=== PATIENT | female | born 1970 | race Caucasian/White ===

== ENCOUNTER 2023-03-21 13:31 | Emergency (ER) | payer MEDICARE, SELFPAY ==
--- NOTE | ~2023-03-21 | CT_ITS ---
EXAMINATION: CT FACIAL BONES WITH CONTRAST CLINICAL INFORMATION: Right facial swelling, pain. Dental infection? COMPARISON: None available. TECHNIQUE: Multidetector CT imaging examination of the facial bone region is performed with intravenous administration of 85 mL Omnipaque 350. This CT examination was performed using dose optimization techniques as appropriate, variously including the following: *Automated exposure control *Adjustment of mA and/or kV according to patient size (this includes techniques or standardized protocols for targeted exams where dose is matched to indication/reason for exam; i.e. extremities or head) *Use of iterative reconstruction technique DLP: 198 mGy-cm FINDINGS: The globes and orbital gómez, including lamina papyracea, are intact. The orbital apex, optic canals, and retrobulbar fat planes are normal. The maxilla, mandible and temporomandibular joints are intact. The patient is edentulous. There are no lytic or sclerotic changes in either the mandible or maxilla to suggest osteomyelitis. The nasal bones, pterygoid plates and zygomatic arches are normal. Wlph-[id number] amount of mucus is present in the inferior right maxillary sinus. Small amount mucus is present within a right posterior ethmoid air cell. There are no air-fluid levels within the paranasal sinuses. The ostiomeatal units are patent. No evidence of fluid collection or inflammatory change within the uniform force captain, parotid or parapharyngeal spaces. The pharyngeal mucosa and oral cavity are unremarkable. Submandibular glands are normal. No pathologic sized lymph nodes within the visualized portion of the upper neck. The intracranial compartment is partially included in [id number]. The visualized portion the brain is normal. No extra-axial fluid collection. CT/CT facial bones w IV con IMPRESSION: No acute imaging abnormalities. No evidence of osteomyelitis, soft tissue infection or acute sinusitis.
--- NOTE | 2023-03-21 14:17 | ED.GENADULT ---
[facility] - General Adult General Chief complaint: General Medical Stated complaint: Jaw pain Time Seen by Provider: 03/21/23 14:34 Source: patient Mode of arrival: ambulatory History of Present Illness HPI narrative: 52-year-old female who presents with complaints of left lower jaw discomfort and a swelling noted at the under edge of her jaw denies any fever chills or difficulty swallowing or breathing. She went to her dentist today who stated that she has no teeth. Patient history is significant for metastatic breast CA. Related Data Previous Rx's Medication Instructions Recorded amoxicillin 875 mg-potassium 1 tab PO BID 7 days #14 tabs 03/21/23 clavulanate 125 mg tablet Allergies Allergy/AdvReac Type Severity Reaction Status Date / Time No Known Allergies Allergy Verified 03/21/23 15:09 Review of Systems Review of Systems: Pertinent positives and negatives as stated in [facility] Past Medical History Source: nursing notes reviewed Onset Date is defined in the Problem List Problems that require an onset date and time if occurred within 24 hrs of arrival to the ED Aortic Dissection and Rupture; Neurologic impairment; Cardiopulmonary Arrest; Endotracheal Intubation; Insertion or Replacement of Mechanical Circulatory Assist Device Social History Social History Smoked in Last 30 Days: No Use of substances other than those prescribed or required for medical reasons: No Advance Directives: No Advance Directives Information Provided: Yes Patient : No Physical Exam ED Vital Signs: Vital Signs - 24 hr 03/21/23 14:18 03/21/23 14:36 Temperature 99.6 F Pulse Rate 103 H 101 H Respiratory Rate 18 16 Blood Pressure 149/90 H 155/96 H Pulse Oximetry 98 95 Oxygen Delivery Method Room Air Room Air BMI result Body Mass Index 18.8 VITAL SIGNS: Reviewed. GENERAL: Well developed, well nourished, in no acute distress. HEAD: Normocephalic/atraumatic EYES: PERRLA, EOMI EARS: Ext canals without abnormality NOSE: Nares patent bilateral OROPHARYNX: no oral lesions noted, posterior pharynx clear, no teeth, areas of gum sweling, there is a small pin hole at right lower inner gum with palpable/tender node at right submandibular NECK: Supple, no adenopathy LUNGS: Normal breath sounds. No adventitious sounds or accessory muscle use. SpO2<95> CARDIOVASCULAR: Regular rate and rhythm without noted murmurs ABDOMEN: Soft, non-tender, non-distended with bowel sounds. MUSCULOSKELETAL: No tenderness, deformities, or effusions noted on gross inspection. EXTREMITIES: No cyanosis, clubbing or edema. SKIN: Inspection of the skin reveals no rashes NEUROLOGIC: Alert and oriented x 4. Strength and sensation to light touch were grossly intact x 4. Course Course Course Narrative: RME: 52 year-old F w/ PMHx stage IV metastasized breast CA on chemotherapy, presenting to the ED c/o worsening jaw pain/lump x2 weeks, sent in by dentist for CT +R lower jaw swelling & pain Labs, CT ordered Full HPI, ROS and PE to be performed by primary ED provider. Medications Administered Discontinued Medications Generic Name Dose Route Start Last Admin Trade Name Freq PRN Reason Stop Dose Admin Acetaminophen 975 mg 03/21/23 16:21 03/21/23 16:29 Acetaminophen 325 Mg Tablet PO 03/21/23 16:22 975 mg ONCE ONE Administration Amoxicillin/Clavulanate Potassium 875 mg 03/21/23 16:21 03/21/23 16:29 Amoxicillin/Potassium Clav 875 Mg Tablet PO 03/21/23 16:22 875 mg ONCE ONE Administration Ibuprofen 400 mg 03/21/23 16:21 03/21/23 16:29 Ibuprofen 400 Mg Tablet PO 03/21/23 16:22 400 mg ONCE ONE Administration Iohexol 85 ml 03/21/23 15:44 03/21/23 15:44 Iohexol 350 Mg/Ml 100 Ml Infus..Btl IV 03/21/23 15:45 85 ml ONCE ONE Administration Medical Decision Making Medical Decision Making [facility] Narrative: 52-year-old female with history and clinical presentation, DDX: Infection likely needing antibiotics will follow-up on labs and CT scan that were ordered. I reviewed all investigations there is no evidence of leukocytosis or left shift, there is no thrombocytopenia and patient has a normocytic anemia likely of chronic disease specifically related to current cancer. There is no history or clinical evidence of acute bleeding. Chemistry indices do not demonstrate an FILIBERTO and there is a mild drop in potassium which will be repleted with 60 mEq of potassium chloride and otherwise no evidence of liver enzyme derangements. C-reactive is noted to be elevated to 6.[address] scan face there is no evidence of an osteomyelitis and likely this again is relatable to patient's underlying cancer diagnosis. She received combination analgesics and initial antibiotics and is otherwise discharged home. Differential Diagnosis Differential Diagnoses: The differential diagnosis associated with the presentation includes Please see the discussion above Admission/Observation Consideration of admission/observation: Escalation of care including admission/observation considered Please see the discussion above Lab Data MDM Lab Attestation statement: I reviewed the patient's lab results. Please see the discussion above 03/21/23 14:56 03/21/23 14:56 Labs: Lab Results 03/21/23 Range/Units 14:56 WBC 4.6 L (4.8-10.8) X10*3/uL RBC 3.28 L (4.20-5.50) X10*6/uL Hgb 8.9 L (12.0-16.0) g/dl Hct 27.6 L (37.0-47.0) % MCV 84.1 (80.0-98.0) fL MCH 27.1 (27.0-33.0) pg MCHC 32.2 (31.0-35.0) g/dl RDW 14.6 (11.0-16.0) % Plt Count 163 (160-400) X10*3/uL MPV 8.6 L (9.4-12.3) fL Immature Gran % (Auto) 0.4 (0.0-0.4) % Neut % (Auto) 60.1 (45-73) % Lymph % (Auto) 24.4 (20-40) % [place] % (Auto) 11.6 H (2-11) % Eos % (Auto) 2.6 (0-4) % Baso % (Auto) 0.9 (0-2) % Lymph # (Auto) 1.1 L (1.2-4.9) X10*3/uL [place] # (Auto) 0.5 (0.1-1.2) X10*3/uL Eos # (Auto) 0.1 (0.0-0.4) X10*3/uL Baso # (Auto) 0.0 (0.0-0.2) X10*3/uL Abs Immat Gran (auto) 0.02 (0.00-0.03) X10*3/uL Absolute Neuts (auto) 2.8 (2.0-8.3) x10*3/uL Absolute Nucleated RBC 0.000 (0.0-0.012) X10*3/uL Nucleated RBC % (auto) 0.0 (0.0-0.2) /100WBC ESR 111 H (0-20) MM/HR Sodium 140 (135-145) mmol/L Potassium 3.1 L (3.3-5.1) mmol/L Chloride 99 (96-108) mmol/L Carbon Dioxide 31 H (22-29) mmol/L Anion Gap 13 (12-20) BUN 7 L (9-16) mg/dL Creatinine 0.82 (0.5-1.4) mg/dL Estim Creat Clear Calc 59.7 Estimated GFR > 60 Random Glucose 108 (60-115) mg/dL Calcium 9.4 (8.4-10.2) mg/dL Total Bilirubin 0.2 (0.0-1.0) mg/dL Direct Bilirubin < 0.2 (0.0-0.5) mg/dL AST 17 (5-31) U/L ALT 6 (0-31) U/L Alkaline Phosphatase 72 (39-117) U/L C-Reactive Protein 6.17 H (< or = 0.50) mg/dL Total Protein 7.4 (6.5-8.0) g/dL Albumin 3.6 (3.5-5.0) g/dL Radiology Impression Discussion of test interpretation with radiology: I have reviewed the radiologist's reading. Radiologist Impression: Please see the discussion above Chronic Conditions Patient?s care impacted by: Other Stage IV metastatic breast cancer Critical Care Time Critical Care Time Critical Care Time: Yes Total Critical Care Time: 45 Attestation: I personally attest to this time spent taking care of the patient. Discharge Plan Discharge Clinical Impression: Dental infection Patient Disposition: Home, Self-Care Instructions: Dental Abscess (ED) Additional Instructions: 1. Complete the entire course of antibiotics as prescribed. 2. Please follow-up with primary care doctor at your earliest convenience. 3. Please follow-up with a dentist after being on antibiotics for 2-3 days. Return to the ER if no improvement in symptoms. Prescriptions: New amoxicillin-pot clavulanate 875-125 mg tablet 1 tab PO BID 7 Days Qty: 14 0RF
[2023-03-21 14:18] VITALS: BP 149/90; PULSE 103; RESP 18; TEMP 37.6; O2SAT 98; BMI 18.8
[2023-03-21 14:36] VITALS: BP 155/96; PULSE 101; RESP 16; O2SAT 95
--- NOTE | 2023-03-21 14:40 | PC.NURSE ---
a&ox4. vss and up to date. pt presents to the ED d/t right sided jaw/facial/neck pain. pt states she was at her dentist when her dentist advised her to come here based on complaint. pt states she has had the pain for months but has gotten worse in the past 2 weeks. pt denies any recent fever/chills. slight swelling noted. tender to the touch. airway patent. no sob/wob noted. respirations even and unlabored. pt able to speak in full/clear sentences w/o difficulty. family bedside. call rain placed within reach.
--- NOTE | 2023-03-21 15:00 | PC.NURSE ---
pt states that she has a power port that is used for access on the right side of her chest. this RN accessed right side of chest port w/ sterile technique. port patent. no difficulties noted. access secured in place at this time. labs obtained/sent to lab. pt resting comfortably awaiting to go to CT at this time. call rain placed within reach.
[2023-03-21 15:02] LABS: MANUAL DIFF FLAG NO
[2023-03-21 15:08] LABS: Basophils Percent Auto 0.9 % (0-2); Eosinophils Absolute Auto 0.1 X10*3/uL (0.0-0.4); Eosinophils Percent Auto 2.6 % (0-4); Hematocrit 27.6 % (37.0-47.0); Hemoglobin 8.9 g/dl (12.0-16.0); Imm Gran Abs Auto 0.02 X10*3/uL (0.00-0.03); Imm Gran Pct Auto 0.4 % (0.0-0.4); Lymphocytes Absolute Auto 1.1 X10*3/uL (1.2-4.9); Lymphocytes Percent Auto 24.4 % (20-40); Mean Corpuscular HGB Conc 32.2 g/dl (31.0-35.0); Mean Corpuscular Hemoglobin 27.1 pg (27.0-33.0); Mean Corpuscular Volume 84.1 fL (80.0-98.0); Mean Platelet Volume 8.6 fL (9.4-12.3); Monocytes Absolute Auto 0.5 X10*3/uL (0.1-1.2); Monocytes Percent Auto 11.6 % (2-11); Neutrophils Absolute Auto 2.8 x10*3/uL (2.0-8.3); Neutrophils Percent Auto 60.1 % (45-73); Platelet Count 163 X10*3/uL (160-400); Red Blood Count 3.28 X10*6/uL (4.20-5.50); Red Cell Distribution Width 14.6 % (11.0-16.0); White Blood Count 4.6 X10*3/uL (4.8-10.8)
[2023-03-21 15:16] LABS: Alanine Aminotransferase 6 U/L (0-31); Albumin Level 3.6 g/dL (3.5-5.0); Alkaline Phosphatase 72 U/L (39-117); Anion Gap 13 (12-20); Aspartate Amino Transferase 17 U/L (5-31); Bilirubin Direct < 0.2 mg/dL (0.0-0.5); Bilirubin Total 0.2 mg/dL (0.0-1.0); Blood Urea Nitrogen 7 mg/dL (9-16); C Reactive Protein 6.17 mg/dL (< or = 0.50); Calcium 9.4 mg/dL (8.4-10.2); Carbon Dioxide 31 mmol/L (22-29); Chloride 99 mmol/L (96-108); Creatinine Clr Calc Pharmacy 59.7; Estimated Glomerular Filt Rate > 60; Glucose Random 108 mg/dL (60-115); Potassium 3.1 mmol/L (3.3-5.1); Sodium 140 mmol/L (135-145); Total Protein 7.4 g/dL (6.5-8.0)
--- NOTE | 2023-03-21 15:38 | PC.NURSE ---
pt to CT at this time.
[2023-03-21] MEDS: iohexoL 350 MG/ML 100 ML INFUS..BTL 85 ML IV (15:44)
[2023-03-21 15:49] LABS: Erythrocyte Sedimentation Rate 111 MM/HR (0-20)
[2023-03-21] MEDS: Acetaminophen 325 MG TABLET 975 MG PO (16:29)
[2023-03-21] MEDS: Amoxicillin/Potassium Clav 875 MG TABLET PO (16:29)
[2023-03-21] MEDS: Ibuprofen 400 MG TABLET PO (16:29)
--- NOTE | 2023-03-21 16:32 | PC.NURSE ---
pt c/o right jaw pain. medication administered per provider order. will reassess.
[2023-03-21] MEDS: Potassium Chloride ER 20 MEQ TAB.ER.PRT 60 MEQ PO (17:44)
--- NOTE | 2023-03-21 17:52 | PC.NURSE ---
port removed from right size of chest. access flushed w/ heparin and saline flushes x 2. pt medicated per provider order. pt provided w/ d/c paperwork. pt leaving facility w/ family member at this time.
== END 2023-03-21 17:53 | disposition home or self-care (01) ==
PROVIDERS: Physician Assistant; Emergency Provider Student in an Organized Health Care Education/Training Program
DX: K04.7 Periapical abscess without sinus (principal)
CPT/HCPCS: 36415; 70487; 80048; 80076; 85025; 85652; 86140; 99284; J1642; Q9967

== ENCOUNTER 2023-06-05 10:14 | Emergency (ER) | payer MEDICARE, SELFPAY ==
[2023-06-05 10:30] VITALS: BP 153/87; PULSE 100; RESP 18; TEMP 37.7; O2SAT 95; BMI 18.7
--- NOTE | 2023-06-05 12:23 | ED_ITS ---
HPI - Dental/Oral General Chief complaint: Dental/Oral Stated complaint: Dental infection? has stage 4 breast cancer Time Seen by Provider: 06/05/23 11:55 Source: patient and RN notes reviewed Mode of arrival: ambulatory Limitations: no limitations History of Present Illness HPI Narrative: This is a 52-year-old female, with a history of breast cancer with bone metastasis, presenting to the emergency department with complaints of right lower dental pain x1 week. Patient reports that she has a history of dental abscesses and symptoms feel similar. Patient reports that she called her dentist who did not return her phone call, she also called her oncologist who also is not returning any of her phone calls. She denies any fevers, chills, drainage from the area, chest pain, shortness breast, abdominal pain, difficulty opening and closing jaw. No other complaints or concerns at this time. Teeth map: 2 1. Duration: constant Severity: moderate Relieving factors: nothing Exacerbating factors: nothing Context: history of dental caries and poor dental care Associated symptoms: gum swelling Treatment prior to arrival: none Related Data Previous Rx's Medication Instructions Recorded amoxicillin 875 mg-potassium 1 tab PO BID 7 days #14 tabs 03/21/23 clavulanate 125 mg tablet amoxicillin 875 mg-potassium 1 tab PO BID 7 days #13 tabs 06/05/23 clavulanate 125 mg tablet Allergies Allergy/AdvReac Type Severity Reaction Status Date / Time capsaicin [From Capsimide] Allergy Anaphylaxis Verified 06/05/23 10:36 Review of Systems 2 Review of Systems: Yes all other systems are reviewed and are negative Constitutional: Constitutional: Reports as per [facility] Social History Social History Advance Directives: No Physical Exam 2 Vital Signs: Vital Signs: Last Vital Signs Temp 99 F 06/05/23 12:40 Pulse 99 06/05/23 12:40 Resp 18 06/05/23 12:40 BP 153/87 H 06/05/23 12:40 Pulse Ox 99 06/05/23 12:40 O2 Del Method Room Air 06/05/23 12:40 BMI result Body Mass Index 18.7 Const: General: cooperative, comfortable and no acute distress O rientation/consciousness: patient oriented x3 Limitations: no limitations HEENT: Other: Poor dentition throughout, she has no teeth present. Tenderness to palpation to the lower gumline without any induration or fluctuance. No mandibular tenderness on examination. No pain with opening and closing jaw. No trismus, drooling, or dysphonia. No submandibular swelling Head: Yes normal to inspection, Yes normocephalic and Yes atraumatic E ars: hearing grossly normal bilaterally General nose exam: Normal external nose present Face and sinus: Yes normal facial exam Mouth: Normal oral and palatal mucosa present, oropharynx normal and moist mucous membranes Throat: Yes posterior oropharynx normal Eyes: General: appearance normal, both eyes and all related structures E yelids: Yes eyelids normal Conjunctivae: conjunctivae normal Sclerae: s clerae normal Pupils: Equal, round and reactive pupils present EOM: EOMs intact bilaterally Neck: Neck: Yes normal visual inspection, Yes full ROM and Yes no lymphadenopathy Lymphatic: no lymphadenopathy noted Chest: Chest palpation & inspection: normal inspection of the chest Resp: Effort & Inspection: normal respiratory effort and able to speak in complete sentences Auscultation: clear to auscultation bilaterally, no crackles, no rales, no rhonchi and no wheezes Cardio: Rate: regular rate Rhythm: regular rhythm Heart sounds: S1 normal heart sound present and S2 normal heart sound present GI: Inspection: Yes normal to inspection Skin: General skin exam: no rashes or lesions noted Trauma: no lacerations or abrasions Wounds: no wounds Neuro: General: patient oriented x3 and moves all extremities Cranial nerves: Yes Equal, round and reactive pupils present Extrem: General: Yes normal to inspection Right upper extremity: normal to inspection Left upper extremity: normal to inspection Right lower extremity: normal to inspection Left lower extremity: normal to inspection Medications Administered Discontinued Medications Generic Name Dose Route Start Last Admin Trade Name Freq PRN Reason Stop Dose Admin Amoxicillin/Clavulanate Potassium 875 mg 06/05/23 12:25 06/05/23 12:37 Amoxicillin/Potassium Clav 875 Mg Tablet PO 06/05/23 12:26 875 mg ONCE ONE Administration Medical Decision Making Medical Decision Making [facility] Narrative: This is a 52-year-old female, with a history of breast cancer with metastasis, who presents to the emergency department with complaints of right lower dental pain x1 week. On arrival, patient mildly hypertensive at 153/87, she is afebrile, speaking in full sentences. On physical exam, patient has tenderness palpation along the right lower gumline without any tenderness palpation along her right mandible. Patient's symptoms likely due to a dental abscess. Will treat with Augmentin. Encouraged to follow-up with dentist as soon as possible. She understands and agrees with plan. Also advised that if any new or worsening symptoms occur to immediately return for further evaluation. She understands and agrees with plan. Patient stable for discharge. Differential Diagnosis Differential Diagnoses: The differential diagnosis associated with the presentation includes Dental abscess, dental decay, osteomyelitis, facial pain Admission/Observation Consideration of admission/observation: Escalation of care including admission/observation considered Escalation of care including admission/observation considered however given workup today not warranted at this time. Tests considered The following testing was considered but not selected: Considered facial CT scan, however patient had CT scan performed in March which was unremarkable. She has tenderness palpation along her gumline, consistent with dental issue. Will treat conservatively however given turn precautions if patient has new or worsening symptoms. Chronic Conditions Patient?s care impacted by: Cancer Discharge Plan Discharge Clinical Impression: Dental abscess Patient Disposition: Home, Self-Care Instructions: Dental Abscess (ED) Additional Instructions: You were seen in the emergency department due to dental pain. You have infection in your gumline, which requires antibiotics. Please take full course even if your feeling better. Alternate between ibuprofen and Tylenol as needed for pain and symptoms. You need to follow-up with dentist, call today to make an appointment. If any new or worsening symptoms occur including but not limited to worsening pain, swelling, fevers, chills, difficulty opening and closing your jaw, chest pain, shortness breast, please return for re-evaluation. Prescriptions: New amoxicillin-pot clavulanate 875-125 mg tablet 1 tab PO BID 7 Days Qty: 13 0RF No Action amoxicillin-pot clavulanate 875-125 mg tablet 1 tab PO BID 7 Days Qty: 14 0RF Interventions: ED Discharge Assessment Last Done: 06/05/23 12:40 Discharge Date/Time: 06/05/23 12:45
[2023-06-05] MEDS: Amoxicillin/Potassium Clav 875 MG TABLET PO (12:37)
[2023-06-05 12:40] VITALS: BP 153/87; PULSE 99; RESP 18; TEMP 37.2; O2SAT 99
== END 2023-06-05 12:45 | disposition home or self-care (01) ==
PROVIDERS: Emergency Provider Emergency Medicine
DX: K04.7 Periapical abscess without sinus (principal)
CPT/HCPCS: 99282; 99283

== ENCOUNTER 2023-06-21 11:16 | Outpatient (AMB) | payer MEDICARE, SELFPAY ==
--- NOTE | 2023-06-21 11:35 | MHC.OFFVIS ---
Intake Vital Signs 06/21/23 12:01 Height 5 ft 2 in Weight 99 lb 4 oz BMI 18.2 BP 130/80 Blood Pressure Location Lt brachial Position Sitting Respiration 12 Pulse 90 Pulse Source Pulse Oximeter Pulse Oximetry (%) 96 Oxygen Delivery Method Room Air Intake Visit Reasons: ITDD REFILL DISCUSSION Intake Note: Patient comes in for initial visit was referred by Cancer center. Reports pain 06/19. Allergies capsaicin [From Capsimide] Allergy (Verified 06/21/23 11:59) Anaphylaxis HPI HPI Comments History of Present Illness Details Tracy is very pleasant 60 years old female who is presenting in my office accompanied by her daughter to request assistance in refills of her intrathecal pump. She was diagnosed in cancer 8 years ago it was breast cancer she had simple amputation, no axillary exploration was done and she had chemotherapy. She had oral chemotherapy no radiation. For pump therapy was established in 2023 years ago. She reports most of the pain in bilateral knees she receives intra-articular steroid injections in her knees. 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 To treat her pain she was offered intrathecal pain pump and currently she is on continuous dose of 1 milligram/mL as well as 2 on demand doses with PTM twice a day. Total dose of the medication is 3 mg a day. She uses 1 mL of the medication concentration of which is 10 milligrams/mL every 3 days. She has very short interval until her next pump refill. She is also taking oral medication 5 mg oxycodone 3 times a day. Past medical history significant for depression and past surgical history limited to described above. I explained to the patient that I will be glad to start her pump refills here in [facility] comprehensive pain management. Review of Systems Const All systems reviewed & are unremarkable except as noted in HPI and below ENT Reports Normal hearing present Neuro Reports Normal hearing present, Denies Abnormal speech present and Denies Sensory deficit (Neuro) Physical Exam Vital Signs: Last Vital Signs Pulse 90 06/21/23 12:01 Resp 12 06/21/23 12:01 BP 130/80 06/21/23 12:01 Pulse Ox 96 06/21/23 12:01 Oxygen Delivery Method Room Air 06/21/23 12:01 BMI result Body Mass Index 18.2 Const General: cooperative, comfortable, no acute distress and ill appearing chronically Nutritional Appearance: malnourished Orientation/consciousness: patient oriented x3 Limitations: no limitations Eyes General: appearance normal, both eyes and all related structures Pupils: Equal, round and reactive pupils present EOM: EOMs intact bilaterally Neck Neck: Yes full ROM Chest Other: The left breast is absent on inspection and there is a well-healed scar in the projection of the amputation surgery of the left breast. Chest palpation & inspection: normal inspection of the chest Resp Effort & Inspection: normal respiratory effort, able to speak in complete sentences, normal respiratory pattern, no audible wheezes and no cough Cardio Jugular venous distension: no JVD GI Inspection: Yes normal to inspection Neuro General: patient oriented x3 and gait normal Cranial nerves: Yes CN's II-XII intact bilaterally, Yes Equal, round and reactive pupils present, Yes Normal hearing present and Yes Ability to bilaterally elevate shoulders present Speech: No Abnormal speech present Gait exam (Neuro): Normal gait present Motor exam (neuro): 5/5 motor strength present throughout Sensory Exam: No Sensory deficit (Neuro) Extrem General: No pedal edema Psych Speech and movement: Normal speech and movement present Affect: normal affect Attitude: cooperative Thought process: Normal thought process present Thought content: Normal thought content present Insight: Good insight present (Psych) Judgement: Good judgement present (Psych) Assessment & Plan Assessment & Plan (1) Breast cancer: Code(s): C50.919 - Malignant neoplasm of unspecified site of unspecified female breast (2) Chronic pain syndrome: Code(s): G89.4 - Chronic pain syndrome (3) Osteoarthritis of knees, bilateral: Code(s): M17.0 - Bilateral primary osteoarthritis of knee Plan I will request to order 10 mg of morphine per 1 mL 20 mL solution from [facility] compounding pharmacy. I will request to deliver this medication as soon as possible. Next week I will refill medication for this patient. I explained to her the nature of our chronic opioid program. She receives opioid medications from the oncologist and she would like to remain so. She also is interested in intra-articular joint injections. Coding Level of Care Code New Pt Level 3 (43367) Diagnoses Breast cancer C50.919 Chronic pain syndrome G89.4 Osteoarthritis of knees, bilateral M17.0
[2023-06-21 12:01] VITALS: BP 130/80; PULSE 90; RESP 12; O2SAT 96; BMI 18.2
== END 2023-06-21 12:02 | disposition home or self-care (01) ==
PROVIDERS: Visit Provider Anesthesiology
DX: C50.919 Malignant neoplasm of unspecified site of unspecified female breast (principal); G89.4 Chronic pain syndrome; M17.0 Bilateral primary osteoarthritis of knee
CPT/HCPCS: 99203

== ENCOUNTER → 2023-06-21 11:16 | Outpatient (BNVA) | payer MEDICARE, SELFPAY | PROVIDERS: Visit Provider Anesthesiology | DX: M17.0 Bilateral primary osteoarthritis of knee (principal); C50.919 Malignant neoplasm of unspecified site of unspecified female breast; G89.4 Chronic pain syndrome | CPT/HCPCS: 99202 ==

== ENCOUNTER 2023-07-02 15:21 | Outpatient (AMB) | payer MEDICARE, SELFPAY ==
--- NOTE | 2023-07-02 15:37 | MHC.OFFVIS ---
Vital Signs 07/02/23 15:50 Height 5 ft 2 in Weight 100 lb 6 oz BMI 18.4 BP 149/100 H Blood Pressure Location Lt brachial Position Sitting Respiration 12 Pulse 86 Pulse Source Pulse Oximeter Pulse Oximetry (%) 96 Oxygen Delivery Method Room Air Intake Visit Reasons: ITDD refill Intake Note: Patient comes in for intrathecal medication refill. Reports pain 04/21. Allergies capsaicin [From Capsimide] Allergy (Verified 07/02/23 15:49) Anaphylaxis HPI Comments Details: Tracy is here for refill of her pump. The pump refill is as below. Prior: She recently relocated from [place] to [place]. She was diagnosed in cancer 8 years ago it was breast cancer she had simple amputation, no axillary exploration was done and she had chemotherapy. She had oral chemotherapy no radiation. She reports most of the pain in bilateral knees she receives intra-articular steroid injections in her knees. 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 To treat her pain she was offered intrathecal pain pump and currently she is on continuous dose of 1 milligram/mL as well as 2 on demand doses with PTM twice a day. Total dose of the medication is 3 mg a day. She uses 1 mL of the medication concentration of which is 10 milligrams/mL every 3 days. She has very short interval until her next pump refill. She is also taking oral medication 5 mg oxycodone 3 times a day. Review of Systems Const All systems reviewed & are unremarkable except as noted in HPI and below ENT Reports Normal hearing present Neuro Reports Normal hearing present, Denies Abnormal speech present and Denies Sensory deficit (Neuro) Physical Exam Vital Signs: Last Vital Signs Pulse 86 07/02/23 15:50 Resp 12 07/02/23 15:50 BP 149/100 H 07/02/23 15:50 Pulse Ox 96 07/02/23 15:50 Oxygen Delivery Method Room Air 07/02/23 15:50 BMI result Body Mass Index 18.4 Const General: cooperative, comfortable, no acute distress and ill appearing chronically Nutritional Appearance: malnourished Orientation/consciousness: patient oriented x3 Limitations: no limitations Eyes General: appearance normal, both eyes and all related structures Pupils: Equal, round and reactive pupils present EOM: EOMs intact bilaterally Neck Neck: Yes full ROM Chest Other: The left breast is absent on inspection and there is a well-healed scar in the projection of the amputation surgery of the left breast. Chest palpation & inspection: normal inspection of the chest Resp Effort & Inspection: normal respiratory effort, able to speak in complete sentences, normal respiratory pattern, no audible wheezes and no cough Cardio Jugular venous distension: no JVD GI Inspection: Yes normal to inspection Neuro General: patient oriented x3 and gait normal Cranial nerves: Yes CN's II-XII intact bilaterally, Yes Equal, round and reactive pupils present, Yes Normal hearing present and Yes Ability to bilaterally elevate shoulders present Speech: No Abnormal speech present Gait exam (Neuro): Normal gait present Motor exam (neuro): 5/5 motor strength present throughout Sensory Exam: No Sensory deficit (Neuro) Extrem General: No pedal edema Psych Speech and movement: Normal speech and movement present Affect: normal affect Attitude: cooperative Thought process: Normal thought process present Thought content: Normal thought content present Insight: Good insight present (Psych) Judgement: Good judgement present (Psych) Assessment & Plan Assessment & Plan (1) Breast cancer: Code(s): C50.919 - Malignant neoplasm of unspecified site of unspecified female breast Category: Medical (2) Chronic pain syndrome: Code(s): G89.4 - Chronic pain syndrome Category: Medical Plan: Intrathecal pump refill. ? THE PATIENT CAME TODAY IN office FOR THE CHANGE OF THE MEDICATION IN his PAIN PUMP. The name and date of were verified and informed consent was obtained for the procedure. ? ?The pump was interrogated and the residual amount of fluid was found to be 3.2 mL. HE WAS POSITIONED prone on the bed AND THE AREA OF THE INTRATHECAL PUMP WAS PREPPED WITH CHLORAPREP. The fenestrated drape was sterilely applied over the area of the pump. Sterile gloves were worn and of the aspiration system was assembled containing 2 in 22 gauge noncoring needle, the needle was connected to extension tubing which was connected to the 20 cc sterile syringe. The pain pump was palpated under the skin in the patient's right buttock area. The needle was inserted through the skin and the central plug of the pain pump and fluid was aspirated. The clear fluid was going into the syringe the total amount of the fluid was 2.0 mL .. After that a new batch? of medication was obtained which was containing morphine 10 milligrams/mL. The admixture was made in 20 cc syringe prepared by [facility] compounding pharmacy. The syringe was connected to the bacterial filter, and then connected to the extension tubing. After that the medication in the syringe was slowly instilled into the pump with aspirations at 15 and 5 cc johnson.? The pump was left as previously for with simple continuous infusion morphine 1 milligram/mL continuous as well as to PTM doses of 1 mg of morphine twice a day. (3) Osteoarthritis of knees, bilateral: Code(s): M17.0 - Bilateral primary osteoarthritis of knee Category: Medical Plan Next appointment will be scheduled in 60 days. The doses and the concentrations stay the same. Questions about current therapy were answered to the patient. She is currently on morphine therapy. Limitations of morphine therapy were explained including risk of intrathecal granuloma.
[2023-07-02 15:50] VITALS: BP 149/100; PULSE 86; RESP 12; O2SAT 96; BMI 18.4
== END 2023-07-02 16:02 | disposition home or self-care (01) ==
LOC: HO.PMC 15:21
PROVIDERS: Visit Provider Anesthesiology
DX: Z45.1 Encounter for adjustment and management of infusion pump (principal); G89.4 Chronic pain syndrome; C50.919 Malignant neoplasm of unspecified site of unspecified female breast; M17.0 Bilateral primary osteoarthritis of knee
CPT/HCPCS: 95991

== ENCOUNTER → 2023-07-02 15:21 | Outpatient (BNVA) | payer MEDICARE, SELFPAY | PROVIDERS: Visit Provider Anesthesiology ==

== ENCOUNTER 2023-08-30 13:55 | Outpatient (AMB) | payer MEDICARE, SELFPAY ==
--- NOTE | 2023-08-30 14:00 | A.OFFVIS_ITS ---
Vital Signs 08/30/23 14:30 Height 5 ft 2 in Weight 97 lb 6 oz BMI 17.8 BP 139/79 Blood Pressure Location Lt brachial Position Sitting Respiration 14 Pulse 85 Pulse Source Pulse Oximeter Pulse Oximetry (%) 95 Oxygen Delivery Method Room Air Intake Visit Reasons: ITDD REFILL Intake Note: Patient comes in for intrathecal medication refill. Reports pain 08/19. Allergies capsaicin [From Capsimide] Allergy (Verified 08/30/23 14:31) Anaphylaxis HPI Comments Details: Tracy is here for refill of her pump. The pump refill is as below. When we read her pump today and the reading demonstrated that she went for the MRI was exposed to any significant magnetic field. Patient denies MRI. She admits that the only magnet she has in her household is the magnet on the refrigerator door. She never was in or near big electrical transformer device or exposed to the right inside of the powerful electric train. She only admits that she had a trauma on the lateral corner of her pain pump she had a pump against the door. Maybe this is the reason her pumps stalled for while. And maybe this is the reason she has excess of the 13 cc of the medicine in her pump. Prior: She recently relocated from [place] to [place]. She was diagnosed in cancer 8 years ago it was breast cancer she had simple amputation, no axillary exploration was done and she had chemotherapy. She had oral chemotherapy no radiation. She reports most of the pain in bilateral knees she receives intra-articular steroid injections in her knees. 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 To treat her pain she was offered intrathecal pain pump and currently she is on continuous dose of 1 milligram/mL as well as 2 on demand doses with PTM twice a day. Total dose of the medication is 3 mg a day. She uses 1 mL of the medication concentration of which is 10 milligrams/mL every 3 days. She has very short interval until her next pump refill. She is also taking oral medication 5 mg oxycodone 3 times a day. Review of Systems Const All systems reviewed & are unremarkable except as noted in HPI and below ENT Reports Normal hearing present Neuro Reports Normal hearing present, Denies Abnormal speech present and Denies Sensory deficit (Neuro) Physical Exam Const General: cooperative, comfortable, no acute distress and ill appearing chronically Nutritional Appearance: malnourished Orientation/consciousness: patient oriented x3 Limitations: no limitations Eyes General: appearance normal, both eyes and all related structures Pupils: Equal, round and reactive pupils present EOM: EOMs intact bilaterally Neck Neck: Yes full ROM Chest Other: The left breast is absent on inspection and there is a well-healed scar in the projection of the amputation surgery of the left breast. Chest palpation & inspection: normal inspection of the chest Resp Effort & Inspection: normal respiratory effort, able to speak in complete sentences, normal respiratory pattern, no audible wheezes and no cough Cardio Jugular venous distension: no JVD GI Inspection: Yes normal to inspection Neuro General: patient oriented x3 and gait normal Cranial nerves: Yes CN's II-XII intact bilaterally, Yes Equal, round and reactive pupils present, Yes Normal hearing present and Yes Ability to bilaterally elevate shoulders present Speech: No Abnormal speech present Gait exam (Neuro): Normal gait present Motor exam (neuro): 5/5 motor strength present throughout Sensory Exam: No Sensory deficit (Neuro) Extrem General: No pedal edema Psych Speech and movement: Normal speech and movement present Affect: normal affect Attitude: cooperative Thought process: Normal thought process present Thought content: Normal thought content present Insight: Good insight present (Psych) Judgement: Good judgement present (Psych) Assessment & Plan Assessment & Plan (1) Breast cancer: Code(s): C50.919 - Malignant neoplasm of unspecified site of unspecified female breast Category: Medical (2) Chronic pain syndrome: Code(s): G89.4 - Chronic pain syndrome Category: Medical Plan: Intrathecal pump refill. ? THE PATIENT CAME TODAY IN office FOR THE CHANGE OF THE MEDICATION IN his PAIN PUMP. The name and date of were verified and informed consent was obtained for the procedure. ? ?The pump was interrogated and the residual amount of fluid was found to be 13.6 mL. HE WAS POSITIONED prone on the bed AND THE AREA OF THE INTRATHECAL PUMP WAS PREPPED WITH CHLORAPREP. The fenestrated drape was sterilely applied over the area of the pump. Sterile gloves were worn and of the aspiration system was assembled containing 2 in 22 gauge noncoring needle, the needle was connected to extension tubing which was connected to the 20 cc sterile syringe. The pain pump was palpated under the skin in the patient's right buttock area. The needle was inserted through the skin and the central plug of the pain pump and fluid was aspirated. The clear fluid was going into the syringe the total amount of the fluid was 13.7 mL .. After that a new batch? of medication was obtained which was containing morphine 10 milligrams/mL. The admixture was made in 20 cc syringe prepared by [facility] compounding pharmacy. The syringe was connected to the bacterial filter, and then connected to the extension tubing. After that the medication in the syringe was slowly instilled into the pump with aspirations at 15 and 5 cc johnson.? The pump was left as previously for with simple continuous infusion morphine 1 milligram/mL continuous as well as to PTM doses of 1 mg of morphine twice a day. (3) Osteoarthritis of knees, bilateral: Code(s): M17.0 - Bilateral primary osteoarthritis of knee Category: Medical Plan Next appointment will be scheduled in 60 days. Next time will refill her with slightly increase concentration of the morphine I will make it 15 milligrams/mL so we can make her appointments less frequent and I will see her once in 3 months Coding Level of Care Code Est Pt Level 3 (98637) Procedure Only Diagnoses Breast cancer C50.919 Chronic pain syndrome G89.4 Osteoarthritis of knees, bilateral M17.0
[2023-08-30 14:30] VITALS: BP 139/79; PULSE 85; RESP 14; O2SAT 95; BMI 17.8
== END 2023-08-30 14:28 | disposition home or self-care (01) ==
PROVIDERS: Visit Provider Anesthesiology
DX: C50.919 Malignant neoplasm of unspecified site of unspecified female breast (principal); G89.4 Chronic pain syndrome; M17.0 Bilateral primary osteoarthritis of knee; Z45.1 Encounter for adjustment and management of infusion pump
CPT/HCPCS: 95991; 99213

== ENCOUNTER → 2023-08-30 13:55 | Outpatient (BNVA) | payer MEDICARE, SELFPAY | PROVIDERS: Visit Provider Anesthesiology | DX: Z45.89 Encounter for adjustment and management of other implanted devices (principal); C50.919 Malignant neoplasm of unspecified site of unspecified female breast; M17.0 Bilateral primary osteoarthritis of knee; G89.4 Chronic pain syndrome | CPT/HCPCS: 99212 ==

== ENCOUNTER 2023-10-26 09:04 | Outpatient (AMB) | payer MEDICARE, SELFPAY ==
--- NOTE | 2023-10-26 09:17 | A.OFFVIS_ITS ---
Vital Signs 10/26/23 09:18 Height 5 ft 2 in Weight 89 lb BMI 16.3 BP 108/66 Blood Pressure Location Lt brachial Position Sitting Respiration 15 Pulse 104 H Pulse Source Pulse Oximeter Pulse Oximetry (%) 98 Oxygen Delivery Method Room Air Intake Visit Reasons: ITDD Refill Allergies capsaicin [From Capsimide] Allergy (Verified 10/26/23 09:19) Anaphylaxis Medication List - Last Reconciled 10/26/23 by Sylvie Harrell LPN atorvastatin 20 mg PO DAILY chlorhexidine gluconate 0.12% PO everolimus (antineoplastic) mg PO exemestane mg PO fluoxetine 20 mg PO DAILY folic acid 1 mg PO DAILY gabapentin 100 mg PO TID ibuprofen mg PO ondansetron HCl 4 mg PO Q8H PRN trazodone 100 mg PO BEDTIME HPI HPI ITDD Refill: Details: 53-year-old female who presents today to the office for a ITDD refill. Denies any recent cough, cold, infection, fever or other significant changes in medical history since last office visit.?She is not utilizing PTM as much at home. She has been using oxycodone for the mouth pain. Review of Systems Const All systems reviewed & are unremarkable except as noted in HPI and below Physical Exam Vital Signs: Last Vital Signs Pulse 104 H 10/26/23 09:18 Resp 15 10/26/23 09:18 BP 108/66 10/26/23 09:18 Pulse Ox 98 10/26/23 09:18 Oxygen Delivery Method Room Air 10/26/23 09:18 BMI result Body Mass Index 16.3 General: Appears afebrile. Alert and oriented. Mood and affect appropriate. Follows and participates in conversation appropriately. Respiratory effort is unlabored. Able to transition from sit to stand unassisted. Ambulates with bilaterally normal heel strike and toe off. Office Procedures Details: Intra-thecal Pump Refill The name and date of were verified, and informed consent was obtained for the procedure. The pump was interrogated, and the residual amount of fluid was found to be 13 mL. Patient was positioned prone on the bed and the area of the intrathecal pump was prepped with chloraprep. The fenestrated drape was sterilely applied over the area of the pump. Sterile gloves were worn and the aspiration system was assembled containing 2 22-gauge noncoring needle; the needle was connected to extension tubing which was connected to the 20-cc sterile syringe. The extension tubing was clamped. The pain pump was palpated under the skin in the patient's buttock. The needle was inserted through the skin and the central plug of the pain pump and fluid was aspirated. 13 mL of clear fluid were aspirated. After that, a new batch of medication morphine?15 mg/ml?was obtained. The admixture was premixed in a 20cc syringe by [facility] compounding pharmacy. The syringe was connected to the bacterial filter, and then connected to the extension tubing. After that, the medication in the syringe was slowly instilled into the pump with aspirations at 15 and 5cc johnson. The pump was programmed and updated per the latest parameters. The details of this program are available in the pump log that was saved and uploaded to the EMR. 35017 - Refill Procedure code (CPT) selection complete Results Reviewed Results Reviewed: No imaging is available for review. Assessment & Plan Assessment & Plan (1) Chronic pain syndrome: Code(s): G89.4 - Chronic pain syndrome Category: Medical Plan Patient is status post intra-thecal pump refill. Patient tolerated procedure well and was discharged home in stable condition with discharge instructions.? All questions were answered. The patient is not utilizing her PTM options at all, so I deactivated the PTM to avoid any confusion in terms of her expected refill date. Even today, a majority of her pump medication was unused at the current dose with the PTM option. Her next refill date is going to be in July 2024. Patient is in agreement. Scribed for Dr. George by Valentino Garcias, emergency medicine medical director, on 10/26/2023. I, Dr. George, have personally reviewed and agree with the information entered by the scribe. Coding Level of Care Code Procedure Only Diagnoses Chronic pain syndrome G89.4 CPT Codes Intraethecal Drug Delivery System - CPT: 08536 - Refill ([id number])
[2023-10-26 09:18] VITALS: BP 108/66; PULSE 104; RESP 15; O2SAT 98; BMI 16.3
== END 2023-10-26 09:50 | disposition home or self-care (01) ==
PROVIDERS: Visit Provider Internal Medicine
DX: Z45.1 Encounter for adjustment and management of infusion pump (principal)
CPT/HCPCS: 62370

== ENCOUNTER → 2023-10-26 09:04 | Outpatient (BNVA) | payer MEDICARE, SELFPAY | PROVIDERS: Visit Provider Internal Medicine | DX: G89.4 Chronic pain syndrome (principal); Z45.1 Encounter for adjustment and management of infusion pump | CPT/HCPCS: 62370 ==

== ENCOUNTER 2024-01-21 11:39 | Outpatient (AMB) | payer MEDICARE, MEDICAID, SELFPAY ==
--- NOTE | 2024-01-21 11:43 | MHC.OFFVIS ---
Vital Signs 01/21/24 11:48 Height 5 ft 2 in Weight 91 lb BMI 16.6 BP 131/79 Blood Pressure Location Lt brachial Position Sitting Pulse 100 Pulse Source Pulse Oximeter Pulse Oximetry (%) 98 Oxygen Delivery Method Room Air Intake Visit Reasons: PUMP ASSESSMENT Intake Note: Pain today 09/18 Wardrobe Specialist Required: No Accompanied by: Other Relationship Allergies capsaicin [From Capsimide] Allergy (Verified 01/21/24 11:49) Anaphylaxis HPI Comments Details: Reba is very pleasant 53 years old female who are in my office today with complains on body of the intrathecal pain pump. She lost a lot of weight and pump is very easily palpated under the paper thin skin. Patient reports constant discomfort of the pump, she reports that she frequently bump the pump against the table when she starts to get up from the dining chair. She also reports redness and excoriations she frequently experiences with the pump. The thickness of the skin covering the body of the pump no more than few mm. The patient requests to revise the pump. Unfortunately on the abdomen she does not have much of the fat tissue to create a good pocket for the pump. I offered her revision of the pump with relocation of the device to her left upper buttock. At least there I can make deeper incision and hide the pump deeper under the skin. Her pump is 5 years old and it needs to be replaced in less than 2 years. I would request the insurance company to approve the delivery of the new [employer] pump for the patient. She also last time because of non use of the PTM was deleted with PTM function and now she has excess of the medicine in her pump. It has been 3 months since her past refill and we need to refill the pump as soon as possible. We will decrease the concentration of the morphine in the pump to 8 milligrams/mL this will allow us to increase the volume of medication delivery and help patient pain better. Prior: She recently relocated from [place] to [place]. She was diagnosed in cancer 8 years ago it was breast cancer she had simple amputation, no axillary exploration was done and she had chemotherapy. She had oral chemotherapy no radiation. She reports most of the pain in bilateral knees she receives intra-articular steroid injections in her knees. 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 To treat her pain she was offered intrathecal pain pump and currently she is on continuous dose of 1 milligram/mL as well as 2 on demand doses with PTM twice a day. Total dose of the medication is 3 mg a day. She uses 1 mL of the medication concentration of which is 10 milligrams/mL every 3 days. She has very short interval until her next pump refill. She is also taking oral medication 5 mg oxycodone 3 times a day. Review of Systems Const All systems reviewed & are unremarkable except as noted in HPI and below ENT Reports Normal hearing present Neuro Reports Normal hearing present, Denies Abnormal speech present and Denies Sensory deficit (Neuro) Physical Exam Vital Signs: Last Vital Signs Pulse 100 01/21/24 11:48 BP 131/79 01/21/24 11:48 Pulse Ox 98 01/21/24 11:48 Oxygen Delivery Method Room Air 01/21/24 11:48 BMI result Body Mass Index 16.6 Const General: cooperative, comfortable, no acute distress and ill appearing chronically Nutritional Appearance: malnourished Orientation/consciousness: patient oriented x3 Limitations: no limitations Eyes General: appearance normal, both eyes and all related structures Pupils: Equal, round and reactive pupils present EOM: EOMs intact bilaterally Neck Neck: Yes full ROM Chest Other: The left breast is absent on inspection and there is a well-healed scar in the projection of the amputation surgery of the left breast. Chest palpation & inspection: normal inspection of the chest Resp Effort & Inspection: normal respiratory effort, able to speak in complete sentences, normal respiratory pattern, no audible wheezes and no cough Cardio Jugular venous distension: no JVD GI Inspection: Yes normal to inspection Neuro General: patient oriented x3 and gait normal Cranial nerves: Yes CN's II-XII intact bilaterally, Yes Equal, round and reactive pupils present, Yes Normal hearing present and Yes Ability to bilaterally elevate shoulders present Speech: No Abnormal speech present Gait exam (Neuro): Normal gait present Motor exam (neuro): 5/5 motor strength present throughout Sensory Exam: No Sensory deficit (Neuro) Extrem General: No pedal edema Psych Speech and movement: Normal speech and movement present Affect: normal affect Attitude: cooperative Thought process: Normal thought process present Thought content: Normal thought content present Insight: Good insight present (Psych) Judgement: Good judgement present (Psych) Assessment & Plan Assessment & Plan (1) Breast cancer: Code(s): C50.919 - Malignant neoplasm of unspecified site of unspecified female breast Category: Medical (2) Chronic pain syndrome: Code(s): G89.4 - Chronic pain syndrome Category: Medical (3) Osteoarthritis of knees, bilateral: Code(s): M17.0 - Bilateral primary osteoarthritis of knee Category: Medical Plan I will schedule this patient for revision and replacement of the pain pump as soon as possible. The patient has this pump for 5 years and the revision is getting close to the pump replacement. It would be beneficial for the patient if we will remove the old pump and obtain new [employer] device for the procedure. I also will schedule her for refill of the medication in the pain pump. The new concentration will be 8 milligrams/mL. In 20 mL of preservative-free normal saline. Coding Level of Care Code Est Pt Level 3 (02096) Diagnoses Breast cancer C50.919 Chronic pain syndrome G89.4 Osteoarthritis of knees, bilateral M17.0
[2024-01-21 11:48] VITALS: BP 131/79; PULSE 100; O2SAT 98; BMI 16.6
== END 2024-01-21 12:00 | disposition home or self-care (01) ==
PROVIDERS: PCP Internal Medicine; Visit Provider Anesthesiology
DX: C50.919 Malignant neoplasm of unspecified site of unspecified female breast (principal); G89.4 Chronic pain syndrome; M17.0 Bilateral primary osteoarthritis of knee
CPT/HCPCS: 99213

== ENCOUNTER → 2024-01-21 11:39 | Outpatient (BNVA) | payer MEDICARE, MEDICAID, SELFPAY | PROVIDERS: PCP Internal Medicine; Visit Provider Anesthesiology | DX: Z45.1 Encounter for adjustment and management of infusion pump (principal); G89.4 Chronic pain syndrome; C50.912 Malignant neoplasm of unspecified site of left female breast; C79.51 Secondary malignant neoplasm of bone; M17.0 Bilateral primary osteoarthritis of knee; E46 Unspecified protein-calorie malnutrition; Z68.1 Body mass index [BMI] 19.9 or less, adult; Z90.12 Acquired absence of left breast and nipple | CPT/HCPCS: 99212 ==

== ENCOUNTER 2024-01-28 14:55 | Outpatient (AMB) | payer MEDICARE, MEDICAID, SELFPAY ==
--- NOTE | 2024-01-28 15:31 | MHC.OFFVIS ---
Vital Signs 01/28/24 16:37 Height 5 ft 2 in Weight 92 lb 6 oz BMI 16.9 BP 130/76 Blood Pressure Location Lt brachial Position Sitting Respiration 16 Pulse 88 Pulse Source Pulse Oximeter Pulse Oximetry (%) 97 Oxygen Delivery Method Room Air Intake Visit Reasons: ITDD Refill Intake Note: Patient comes in for intrathecal medication refill. Reports pain 09/18. Allergies capsaicin [From Capsimide] Allergy (Verified 01/28/24 16:38) Anaphylaxis HPI Comments Details: Reba is very pleasant 53 years old female who are in my office today refill in the intrathecal pain pump. The refill dictation is as below. The situation with the body of the intrathecal pump is still the same. Patient is very uncomfortable with her intrathecal pain pump since it protrudes through the skin. We are waiting for the [employer] decision on whether they can provide us a new pump to relocated to the patient's buttock. She lost a lot of weight and pump is very easily palpated under the paper thin skin. Patient reports constant discomfort of the pump, she reports that she frequently bump the pump against the table when she starts to get up from the dining chair. She also reports redness and excoriations she frequently experiences with the pump. The thickness of the skin covering the body of the pump no more than few mm. The revision request was placed for her insurance company. This pump is 5 years old and I believe it can not be replaced with provision new SynchroMed 3 from [employer]. Because she does not have PTM function in her be pain pump she requests me to increase the dose of the pain pump. I increased it 35%. Prior: She recently relocated from [place] to [place]. She was diagnosed in cancer 8 years ago it was breast cancer she had simple amputation, no axillary exploration was done and she had chemotherapy. She had oral chemotherapy no radiation. She reports most of the pain in bilateral knees she receives intra-articular steroid injections in her knees. 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 To treat her pain she was offered intrathecal pain pump and currently she is on continuous dose of 1 milligram/mL as well as 2 on demand doses with PTM twice a day. Total dose of the medication is 3 mg a day. She uses 1 mL of the medication concentration of which is 10 milligrams/mL every 3 days. She has very short interval until her next pump refill. She is also taking oral medication 5 mg oxycodone 3 times a day. Review of Systems Const All systems reviewed & are unremarkable except as noted in HPI and below ENT Reports Normal hearing present Neuro Reports Normal hearing present, Denies Abnormal speech present and Denies Sensory deficit (Neuro) Physical Exam Vital Signs: Last Vital Signs Pulse 88 01/28/24 16:37 Resp 16 01/28/24 16:37 BP 130/76 01/28/24 16:37 Pulse Ox 97 01/28/24 16:37 Oxygen Delivery Method Room Air 01/28/24 16:37 BMI result Body Mass Index 16.9 Const General: cooperative, comfortable, no acute distress and ill appearing chronically Nutritional Appearance: malnourished Orientation/consciousness: patient oriented x3 Limitations: no limitations Eyes General: appearance normal, both eyes and all related structures Pupils: Equal, round and reactive pupils present EOM: EOMs intact bilaterally Neck Neck: Yes full ROM Chest Other: The left breast is absent on inspection and there is a well-healed scar in the projection of the amputation surgery of the left breast. Chest palpation & inspection: normal inspection of the chest Resp Effort & Inspection: normal respiratory effort, able to speak in complete sentences, normal respiratory pattern, no audible wheezes and no cough Cardio Jugular venous distension: no JVD GI Other: Intrathecal pain pump body on the left upper abdominal side is bulging under the skin, the skin is very thin, there are signs of scarring on the anterior surface of the skin. Neuro General: patient oriented x3 and gait normal Cranial nerves: Yes CN's II-XII intact bilaterally, Yes Equal, round and reactive pupils present, Yes Normal hearing present and Yes Ability to bilaterally elevate shoulders present Speech: No Abnormal speech present Gait exam (Neuro): Normal gait present Motor exam (neuro): 5/5 motor strength present throughout Sensory Exam: No Sensory deficit (Neuro) Extrem General: No pedal edema Psych Speech and movement: Normal speech and movement present Affect: normal affect Attitude: cooperative Thought process: Normal thought process present Thought content: Normal thought content present Insight: Good insight present (Psych) Judgement: Good judgement present (Psych) Assessment & Plan Assessment & Plan (1) Breast cancer: Code(s): C50.919 - Malignant neoplasm of unspecified site of unspecified female breast Category: Medical (2) Chronic pain syndrome: Code(s): G89.4 - Chronic pain syndrome Category: Medical Plan: Intrathecal pump refill. ? THE PATIENT CAME TODAY IN office FOR THE CHANGE OF THE MEDICATION IN his PAIN PUMP. The name and date of were verified and informed consent was obtained for the procedure. ? ?The pump was interrogated and the residual amount of fluid was found to be 13.6 mL. HE WAS POSITIONED prone on the bed AND THE AREA OF THE INTRATHECAL PUMP WAS PREPPED WITH CHLORAPREP. The fenestrated drape was sterilely applied over the area of the pump. Sterile gloves were worn and of the aspiration system was assembled containing 2 in 22 gauge noncoring needle, the needle was connected to extension tubing which was connected to the 20 cc sterile syringe. The pain pump was palpated under the skin in the patient's right buttock area. The needle was inserted through the skin and the central plug of the pain pump and fluid was aspirated. The clear fluid was going into the syringe the total amount of the fluid was 12.4 mL .. After that a new batch? of medication was obtained which was containing morphine 8.0 milligrams/mL. The admixture was made in 20 cc syringe prepared by [facility] compounding pharmacy. The syringe was connected to the bacterial filter, and then connected to the extension tubing. After that the medication in the syringe was slowly instilled into the pump with aspirations at 15 and 5 cc johnson.? The dose of the morphine was increased to simple continuous 1.3503 mg a day, because of the different concentration (degrees concentration from 15 milligrams/mL to 8 milligrams/mL) the patient was given a bridge bolus with 24 hour dose of the medication 1.449 mg a day which will continue for the next 118 hours and 9 minutes. After that the machine will continue with simple continuous rate. (3) Osteoarthritis of knees, bilateral: Code(s): M17.0 - Bilateral primary osteoarthritis of knee Category: Medical Plan Next refill will be scheduled in 90 days. As soon as we know that [employer] will cover the cost of the implantable device will schedule the patient for revision of the pain pump. Coding Level of Care Code Est Pt Level 3 (27159) Procedure Only Diagnoses Breast cancer C50.919 Chronic pain syndrome G89.4 Osteoarthritis of knees, bilateral M17.0
[2024-01-28 16:37] VITALS: BP 130/76; PULSE 88; RESP 16; O2SAT 97; BMI 16.9
== END 2024-01-28 16:19 | disposition home or self-care (01) ==
PROVIDERS: PCP Internal Medicine; Visit Provider Anesthesiology
DX: C50.919 Malignant neoplasm of unspecified site of unspecified female breast (principal); G89.4 Chronic pain syndrome; M17.0 Bilateral primary osteoarthritis of knee; Z45.1 Encounter for adjustment and management of infusion pump
CPT/HCPCS: 62370; 99213

== ENCOUNTER → 2024-01-28 14:55 | Outpatient (BNVA) | payer MEDICARE, MEDICAID, SELFPAY | PROVIDERS: PCP Internal Medicine; Visit Provider Anesthesiology | DX: G89.4 Chronic pain syndrome (principal); M17.0 Bilateral primary osteoarthritis of knee; Z45.1 Encounter for adjustment and management of infusion pump; Z85.3 Personal history of malignant neoplasm of breast; Z92.21 Personal history of antineoplastic chemotherapy; Z79.891 Long term (current) use of opiate analgesic | CPT/HCPCS: 99212 ==

== ENCOUNTER 2024-04-02 15:29 | Outpatient (AMB) | payer MEDICARE, MEDICAID, SELFPAY ==
--- NOTE | 2024-04-02 15:30 | A.OFFVIS_ITS ---
Vital Signs 04/02/24 15:31 Height 5 ft 2 in Weight 92 lb BMI 16.8 BP 116/90 H Blood Pressure Location Lt brachial Position Sitting Respiration 15 Pulse 99 Pulse Source Pulse Oximeter Pulse Oximetry (%) 99 Oxygen Delivery Method Room Air Intake Visit Reasons: Pain Pump F/U After MRI Allergies capsaicin [From Capsimide] Allergy (Verified 04/02/24 15:34) Anaphylaxis Medication List - Last Reconciled 04/02/24 by Sylvie Harrell LPN atorvastatin 20 mg PO DAILY chlorhexidine gluconate 0.12% PO everolimus (antineoplastic) mg PO exemestane mg PO fluoxetine 20 mg PO DAILY folic acid 1 mg PO DAILY gabapentin 100 mg PO TID ibuprofen mg PO mirtazapine 7.5 mg PO BEDTIME ondansetron HCl 4 mg PO Q8H PRN trazodone 25 mg PO BEDTIME PRN HPI Comments Details: Reba is very pleasant 53 years old female who are in my office today for intrathecal pain pump adjustment and verification of the working condition. She went for MRI and presented today to check the working condition of the pain pump. She also requested me to increase the dose of the medication. She has a cancer patient and I do not mind to increase the dose. See the procedure of pain pump reading and refill as below. She lost a lot of weight and pump is very easily palpated under the paper thin skin. Patient reports constant discomfort of the pump, she reports that she frequently bump the pump against the table when she starts to get up from the dining chair. She also reports redness and excoriations she frequently experiences with the pump. The thickness of the skin covering the body of the pump no more than few mm. The revision request was placed for her insurance company. This pump is 5 years old and I believe it can not be replaced with provision new SynchroMed 3 from [employer]. Prior: She recently relocated from [place] to [place]. She was diagnosed in cancer 8 years ago it was breast cancer she had simple amputation, no axillary exploration was done and she had chemotherapy. She had oral chemotherapy no radiation. She reports most of the pain in bilateral knees she receives intra-articular steroid injections in her knees. 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 To treat her pain she was offered intrathecal pain pump and currently she is on continuous dose of 1 milligram/mL as well as 2 on demand doses with PTM twice a day. Total dose of the medication is 3 mg a day. She uses 1 mL of the medication concentration of which is 10 milligrams/mL every 3 days. She has very short interval until her next pump refill. She is also taking oral medication 5 mg oxycodone 3 times a day. Review of Systems Const All systems reviewed & are unremarkable except as noted in HPI and below ENT Reports Normal hearing present Neuro Reports Normal hearing present, Denies Abnormal speech present and Denies Sensory deficit (Neuro) Physical Exam Vital Signs: Last Vital Signs Pulse 99 04/02/24 15:31 Resp 15 04/02/24 15:31 BP 116/90 H 04/02/24 15:31 Pulse Ox 99 04/02/24 15:31 Oxygen Delivery Method Room Air 04/02/24 15:31 BMI result Body Mass Index 16.8 Const General: cooperative, comfortable, no acute distress and ill appearing chronically Nutritional Appearance: malnourished Orientation/consciousness: patient oriented x3 Limitations: no limitations Eyes General: appearance normal, both eyes and all related structures Pupils: Equal, round and reactive pupils present EOM: EOMs intact bilaterally Neck Neck: Yes full ROM Chest Other: The left breast is absent on inspection and there is a well-healed scar in the projection of the amputation surgery of the left breast. Chest palpation & inspection: normal inspection of the chest Resp Effort & Inspection: normal respiratory effort, able to speak in complete sentences, normal respiratory pattern, no audible wheezes and no cough Cardio Jugular venous distension: no JVD GI Other: Intrathecal pain pump body on the left upper abdominal side is bulging under the skin, the skin is very thin, there are signs of scarring on the anterior surface of the skin. Neuro General: patient oriented x3 and gait normal Cranial nerves: Yes CN's II-XII intact bilaterally, Yes Equal, round and reactive pupils present, Yes Normal hearing present and Yes Ability to bilaterally elevate shoulders present Speech: No Abnormal speech present Gait exam (Neuro): Normal gait present Motor exam (neuro): 5/5 motor strength present throughout Sensory Exam: No Sensory deficit (Neuro) Extrem General: No pedal edema Psych Speech and movement: Normal speech and movement present Affect: normal affect Attitude: cooperative Thought process: Normal thought process present Thought content: Normal thought content present Insight: Good insight present (Psych) Judgement: Good judgement present (Psych) Assessment & Plan Assessment & Plan (1) Breast cancer: Code(s): C50.919 - Malignant neoplasm of unspecified site of unspecified female breast Category: Medical (2) Chronic pain syndrome: Code(s): G89.4 - Chronic pain syndrome Category: Medical Plan: Intrathecal pump interrogation and adjustment. Intrathecal pain pump was read and the doses were adjusted from continuousto simple continuous 1.3503 mg a day to 1.9 mg a day. (3) Osteoarthritis of knees, bilateral: Code(s): M17.0 - Bilateral primary osteoarthritis of knee Category: Medical Plan Patient pain pump appears to be in working condition. Coding Level of Care Code Est Pt Level 3 (46807) Procedure Only Diagnoses Breast cancer C50.919 Chronic pain syndrome G89.4 Osteoarthritis of knees, bilateral M17.0
[2024-04-02 15:31] VITALS: BP 116/90; PULSE 99; RESP 15; O2SAT 99; BMI 16.8
== END 2024-04-02 15:40 | disposition home or self-care (01) ==
PROVIDERS: PCP Internal Medicine; Visit Provider Anesthesiology
DX: C50.919 Malignant neoplasm of unspecified site of unspecified female breast (principal); G89.4 Chronic pain syndrome; M17.0 Bilateral primary osteoarthritis of knee; Z45.1 Encounter for adjustment and management of infusion pump
CPT/HCPCS: 62368

== ENCOUNTER → 2024-04-02 15:29 | Outpatient (BNVA) | payer MEDICARE, MEDICAID, SELFPAY | PROVIDERS: PCP Internal Medicine; Visit Provider Anesthesiology | DX: C50.919 Malignant neoplasm of unspecified site of unspecified female breast (principal); G89.4 Chronic pain syndrome; M17.0 Bilateral primary osteoarthritis of knee; Z45.1 Encounter for adjustment and management of infusion pump; Z79.891 Long term (current) use of opiate analgesic | CPT/HCPCS: 62368 ==

== ENCOUNTER 2024-04-24 12:58 | Outpatient (AMB) | payer MEDICARE, MEDICAID, SELFPAY ==
[2024-04-24 13:02] VITALS: BP 107/72; PULSE 119; O2SAT 87; BMI 15.9
--- NOTE | 2024-04-24 13:02 | MHC.OFFVIS ---
Vital Signs 04/24/24 13:02 Height 5 ft 2 in Weight 87 lb BMI 15.9 BP 107/72 Blood Pressure Location Lt brachial Position Sitting Pulse 119 H Pulse Source Pulse Oximeter Pulse Oximetry (%) 87 L Oxygen Delivery Method Room Air Intake Visit Reasons: ITDD REFILL Allergies capsaicin [From Capsimide] Allergy (Verified 04/24/24 13:03) Anaphylaxis HPI Comments Details: Reba is very pleasant 53 years old female who are in my office today for intrathecal pain pump refill. She is now in hospice program, she is suffering from widespread metastasis of her breast cancer. Therefore pump replacement no longer will be required for this patient. Prior: She recently relocated from [place] to [place]. She was diagnosed in cancer 8 years ago it was breast cancer she had simple amputation, no axillary exploration was done and she had chemotherapy. She had oral chemotherapy no radiation. She reports most of the pain in bilateral knees she receives intra-articular steroid injections in her knees. 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 To treat her pain she was offered intrathecal pain pump and currently she is on continuous dose of 1 milligram/mL as well as 2 on demand doses with PTM twice a day. Total dose of the medication is 3 mg a day. She uses 1 mL of the medication concentration of which is 10 milligrams/mL every 3 days. She has very short interval until her next pump refill. She is also taking oral medication 5 mg oxycodone 3 times a day. Review of Systems Const All systems reviewed & are unremarkable except as noted in HPI and below ENT Reports Normal hearing present Neuro Reports Normal hearing present, Denies Abnormal speech present and Denies Sensory deficit (Neuro) Physical Exam Vital Signs: Last Vital Signs Pulse 119 H 04/24/24 13:02 BP 107/72 04/24/24 13:02 Pulse Ox 87 L 04/24/24 13:02 Oxygen Delivery Method Room Air 04/24/24 13:02 BMI result Body Mass Index 15.9 Const General: cooperative, comfortable, no acute distress, ill appearing chronically, lethargic and tired appearing Nutritional Appearance: malnourished and underweight Orientation/consciousness: patient oriented x3 and lethargic Limitations: altered mental status Eyes General: appearance normal, both eyes and all related structures Pupils: Equal, round and reactive pupils present EOM: EOMs intact bilaterally Neck Neck: Yes full ROM Chest Other: The left breast is absent on inspection and there is a well-healed scar in the projection of the amputation surgery of the left breast. Chest palpation & inspection: normal inspection of the chest Resp Effort & Inspection: normal respiratory effort, able to speak in complete sentences, normal respiratory pattern, no audible wheezes and no cough Cardio Jugular venous distension: no JVD GI Other: Intrathecal pain pump body on the left upper abdominal side is bulging under the skin, the skin is very thin, there are signs of scarring on the anterior surface of the skin. Skin Other: Widespread icteric skin, icteric sclerae, obviously liver mtx. Neuro General: patient oriented x3 and gait normal Cranial nerves: Yes CN's II-XII intact bilaterally, Yes Equal, round and reactive pupils present, Yes Normal hearing present and Yes Ability to bilaterally elevate shoulders present Speech: No Abnormal speech present Gait exam (Neuro): Normal gait present Motor exam (neuro): 5/5 motor strength present throughout Sensory Exam: No Sensory deficit (Neuro) Extrem General: No pedal edema Psych Speech and movement: Normal speech and movement present Affect: normal affect Attitude: cooperative Thought process: Normal thought process present Thought content: Normal thought content present Insight: Good insight present (Psych) Judgement: Good judgement present (Psych) Assessment & Plan Assessment & Plan (1) Breast cancer: Code(s): C50.919 - Malignant neoplasm of unspecified site of unspecified female breast Category: Medical (2) Chronic pain syndrome: Code(s): G89.4 - Chronic pain syndrome Category: Medical Plan: Intrathecal pump refill. ? THE PATIENT CAME TODAY IN office FOR THE CHANGE OF THE MEDICATION IN his PAIN PUMP. The name and date of were verified and informed consent was obtained for the procedure. ? ?The pump was interrogated and the residual amount of fluid was found to be 3.1 mL. HE WAS POSITIONED prone on the bed AND THE AREA OF THE INTRATHECAL PUMP WAS PREPPED WITH CHLORAPREP. The fenestrated drape was sterilely applied over the area of the pump. Sterile gloves were worn and of the aspiration system was assembled containing 2 in 22 gauge noncoring needle, the needle was connected to extension tubing which was connected to the 20 cc sterile syringe. The pain pump was palpated under the skin in the patient's right buttock area. The needle was inserted through the skin and the central plug of the pain pump and fluid was aspirated. The clear fluid was going into the syringe the total amount of the fluid was 12.4 mL .. After that a new batch? of medication was obtained which was containing morphine 8.0 milligrams/mL. The admixture was made in 20 cc syringe prepared by [facility] compounding pharmacy. The syringe was connected to the bacterial filter, and then connected to the extension tubing. After that the medication in the syringe was slowly instilled into the pump with aspirations at 15 and 5 cc johnson.? The dose of the morphine was increased to simple continuous 1.3503 mg a day, because of the different concentration (degrees concentration from 15 milligrams/mL to 8 milligrams/mL) the patient was given a bridge bolus with 24 hour dose of the medication 1.449 mg a day which will continue for the next 118 hours and 9 minutes. After that the machine will continue with simple continuous rate. (3) Osteoarthritis of knees, bilateral: Code(s): M17.0 - Bilateral primary osteoarthritis of knee Category: Medical Plan Next refill will be scheduled in 75 days days. No longer pump replacement will be planned the patient is in the hospice program and obviously her disease advanced significantly. Coding Level of Care Code Est Pt Level 3 (44349) Procedure Only Diagnoses Breast cancer C50.919 Chronic pain syndrome G89.4 Osteoarthritis of knees, bilateral M17.0
--- OUTSIDE RECORDS SUMMARY | 2024-04-24 13:06 | XMS_ITS ---
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 Name Role Phone Daisha Ji MD Primary Care Provider [phone] Active Problems Problem Noted Date Diagnosed Date Carcinoma of breast metastat ic to bone, unspecified laterality 02/13/2024 Malignant neoplasm of female breast, unspecified estrogen receptor status, unspecified laterality, unspecified site of breast 02/12/2024 Fever 09/14/2021 Streptococcal sore throat 09/14/2021 Body mass index (BMI) of 5th to less than 85th percentile for age in patient less than 20 years of age 0608/11/2020 Acute urinary tract infection 08/11/2020 Chronic pain syndrome 01/22/2020 Kidney stone 01/22/2020 Malignant neoplasm metastatic to bone 01/22/2020 Herpes simplex 01/03/2018 Acute pharyngitis 10/30/2017 Pain in buttock 05/28/2017 Primary malignant neoplasm of female breast 10/2016 Cancer Staging:Clinical:Stage IV(M1) - Signed by Wagner Estes MD on 02/11/2024 Upper respiratory infection 02/16/2017 Current Oncology Plans DENOSUMAB ( XGEVA ) 120 MG EVERY 12 WEEKS & FULVESTRANT ( FASLODEX ) 500 MG INDUCTION FOLLOWED BY EVERY 4 WEEKS MAINTENANCE* Plan Start Date:02/12/2024 Plan Provider:Leonel Dsouza MD Linked Problems Malignant neoplasm metastati c to bone (CMS/HCC)Malignant neoplasm of female breast, unspecified estrogen receptor status, unspecified laterality, unspecified site of breast (CMS/HCC) Treatment Medications fulvestrant (FASLODEX) Past Plans No past plan information found. Radiation Treatments * Treatment Site Started On Last Treated On Elapsed Days Fractions Complete Last Fraction Dose Given/Prescribed Total Dose Given/Prescribed Technique LT hip 02/22/20 24 02/22/20 24 0 1 of 1 800 cGy / 800 cGy 800 cGy / 800 cGy AP/PA
--- OUTSIDE RECORDS SUMMARY | 2024-04-24 13:06 | XMS_ITS | Clinical Summary ---
Author Organization [facility] Address [address] [place] [address] Care Team Providers Care Medium Cycle Salesperson Name Role Phone Palak Willard MD Primary Care Provider [phone] Allergies Active Allergy Reactions Criticality Noted Date Comments Capecitabine Other (See Comments) Medium 03/29/2023 Sore throat , intense pain Medications Medication Sig Dispensed Refills Start Date End Date Status gabapentin (NEURONTIN) 100 MG capsule Take 1 capsule (100 mg total) by mouth 2 (two) times a day. 0 Active FLUoxetine (PROZAC) 20 MG capsule Take 1 capsule (20 mg total) by mouth daily. 0 Active cholecalciferol (VITAMIN D3) 1000 UNITS tablet Take 1 tablet (1,000 Units total) by mouth daily. 0 Active diphenhydrAMINE (ALLERGY RELIEF) 25 mg capsule Take 1 capsule (25 mg total) by mouth daily. 0 Active Calcium Carb-Cholecalciferol (CALCIUM 600/VITAMIN D3 PO) Take by mouth 2 (two) times a day. 0 Active everolimus (AFINITOR) 7.5 MG tablet Take by mouth 0 Active folic acid (FOLVITE) tablet 1 mg Take 1 tablet (1 mg total) by mouth daily. 0 Active vitamin B-12 (CYANOCOBALAMIN) 500 MCG tablet Take 2 tablets (1,000 mcg total) by mouth daily. 0 Active ascorbic acid (VITAMIN C) 500 MG tablet Take 1 tablet (500 mg total) by mouth daily. 0 Active traZODone (DESYREL) 100 MG tablet Take 1 tablet (100 mg total) by mouth every night at bedtime. 0 Active atorvastatin (LIPITOR) tablet 20 mg Take 1 tablet (20 mg total) by mouth daily. 0 Active exemestane (AROMASIN) 25 MG tablet Take 1 tablet (25 mg total) by mouth daily 90 tablet 2 03/29/2023 Active Benadryl amtj-Cbaykq-Mmzqqcnt- Lidocaine Visc mouth wash 1:1:1:1 Swish and spit 10 mL every 4 (four) hours as needed. 240 mL 3 08/21/2023 Active escitalopram (LEXAPRO) 5 MG tablet Take 1 tablet (5 mg total) by mouth daily. 60 tablet 0 09/12/2023 Active oxyCODONE HCl 20 MG TABS Take 20 mg by mouth 4 (four) times a day as needed. 72 tablet 0 12/19/2023 Active mirtazapine (REMERON) 7.5 MG tablet TAKE 1 TABLET (7.5 MG TOTAL) BY MOUTH EVERY NIGHT AT BEDTIME 90 tablet 0 01/04/2024 Active oxyCODONE HCl 20 MG TABS Take 20 mg by mouth every 4 (four) hours as needed. 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 05/10 Malignant neoplasm of overlapping sites of left breast 09/15/2016 Social History Tobacco Use Types Packs/Day Years Used Date Smoking Tobacco: Never Smokeless Tobacco: Never Tobacco Cessation:Counseling Given: Not Answered Alcohol Use Standard Drinks/Week Comments No 0 (1 standard drink = 0.6 oz pur e alcohol) Sex and Gender Information Value Date Recorded Sex Assigned at Female 03/23/2023 2:17 PM EST Gender Identity Not on file Sexual Orientation Not on file Job Start Date Occupation Industry Not on file Not on file Not on file Last Filed Vital Signs Vital Sign Reading Time Taken Comments Blood Pressure 134/88 12/19/2023 10:57 AM EDT Pulse 84 12/19/2023 10:57 AM EDT Temperature 36.7 ??C (98.1 ??F) 12/19/2023 10:57 AM E DT Respiratory Rate 18 11/13/2023 12:04 PM EDT Oxygen Saturation 100% 12/19/2023 10:57 AM EDT Inhaled Oxygen Concentration - - Weight 41.3 kg (91 lb) 12/19/2023 10:57 AM EDT Height 157.5 cm (5' 2.01 ) 11/13/2023 12:04 PM E DT Body Mass Index 16.64 11/13/2023 12:04 PM EDT Plan of Treatment Health Maintenance Due Date Last Done Comments Hepatitis B Vaccines (1 of 3 - 3-dose series) 1971 Hepatitis C Screening 1971 COVID-19 Vaccine (#1) 07/11/1976 Pneumococcal Vaccine (1 of 2 - PCV) 07/11/1977 Depression Screening 1983 Preventative Health Evaluation 07/11/1989 DTap / Tdap / Td (1 - Tdap) 07/11/1990 Shingrix-Zoster Vaccine (1 o f 2) 07/11/1990 Cervical Cancer Screening (Pap Smear) 07/11/1992 Colon Cancer Screening (Colonoscopy) 07/11/2016 Breast Cancer Screening (Mammogram) 07/11/2021 Influenza Vaccine (#1) 2023 0, 12/25/2017, 01/29/2017 RSV Ped < 20 months Aged Out No longe r eligible based on patient's age to complete this topic Care Teams Medium Cycle Salesperson Relationship Specialty Start Date End Date Palak Willard MD [address] [place] [address] PCP - General Internal Medicine 03/29/23
--- OUTSIDE RECORDS SUMMARY | 2024-04-24 13:06 | XMS_ITS ---
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 Radiation Treatments * No radiation treatments are documented for this patient in [facility]. Treatments may have been administered in another system.
--- OUTSIDE RECORDS SUMMARY | 2024-04-24 13:06 | XMS_ITS | Encounter Summary ---
Author Organization [facility] Address [address] [place] [address] Care Team Providers Care Remote Inpatient Coder Name Role Phone Daisha Ji MD Primary Care Provider [phone] Reason for Referral * Imaging (Routine) - Closed Specialty Diagnoses / Procedures Referred By Contac t Referred To Contact Radiology Diagnoses Malignant neoplasm metastatic to bone (CMS/HCC) Carcinoma of breast metastatic to bone, unspecified laterality (CMS/HCC) Procedures MR Thoracic Spine wo and w Contrast Kirk Dsouza MD [address] [place] [address] Phone: tel: fax: [facility] Referral ID Status Reason Start Date Expiration Date Visits Re quested Visits Authorized [id number] Closed 03/21/2024 03/21/2025 1 1 Reason for Visit * Imaging (Routine) - Closed Specialty Diagnoses / Procedures Referred By Contac t Referred To Contact Radiology Diagnoses Malignant neoplasm metastatic to bone (CMS/HCC) Carcinoma of breast metastatic to bone, unspecified laterality (CMS/HCC) Procedures MR Thoracic Spine wo and w Contrast Kirk Dsouza MD [address] [place] [address] Phone: tel: fax: [facility] Referral ID Status Reason Start Date Expiration Date Visits Re quested Visits Authorized [id number] Closed 03/21/2024 03/21/2025 1 1 Encounter Details Date Type Department Care Team (Latest Contact Info) Description 04/02/2024 12:41 PM EST - 04/02/2024 11:59 PM EST Hospital Encounter [facility] MRI [address] [place] [address] Malignant neoplasm metastatic to bone (CMS/HCC); Carcinoma of breast metastatic to bone, unspecified laterality (CMS/HCC) Discharge Disposition: Home or Self Care Social History Tobacco Use Types Packs/Day Years Used Date Smoking Tobacco: Never Smokeless Tobacco: Never Alcohol Use Standard Drinks/Week Comments No 0 (1 standard drink = 0.6 oz pur e alcohol) Housing Instability Answer Date Recorde d Are you worried that in the next 2 months you may not have stable housing? No 02/13/2024 Food Access & Nutrition Answer Date Rec orded Do you have access to a vari ety of food including fruits and vegetables? Yes 02/13/2024 Financial Risk Answer Date Recorded How hard is it for you to pa y for the very basics like food, housing, medical care, and air conditioning / heating? Not very hard 02/13/2024 Transportation Answer Date Recorded Has the lack of transportati on kept you from meetings, work, or from getting things needed for daily living? No Has the lack of transportati on kept you from medical appointments or from getting medications? No 02/13/2024 Food Risk Answer Date Recorded Within the past 12 months we worried whether our food would run out before we got money to buy more. Never true 02/13/2024 Within the past 12 months th e food we bought just didn't last and we didn't have money to get more. Never true 02/13/2024 Living Situation Answer Date Recorded What is your living situation? 1 04/15/2023 Comments Unknown Sex and Gender Information Value Date Recorded Sex Assigned at Female 01/23/2024 12:58 PM EST Legal Sex Female 12:39 PM EST Gender Identity Female 01/23/2024 12:58 PM EST Sexual Orientation Straight 01/23/2024 12 :58 PM EST documented as of this encounter Medications at Time of Discharge acetaminophen (TYLENOL) 500 mg tablet TAKE1 TAB BY MOUTH EVERY 6 HOURS NEEDED FOR PAIN 04/04/2023 ascorbic acid (Vitamin C) 500 mg chewable tablet Take 1 Tablet by mouth. calcium carbonate/vitamin D3 (CALCIUM WITH VITAMIN D3 ORAL) Calcium Carb-Cholecalcife rol (Calcium + Vitamin D3) 600-5 MG-MCG Tab Take 1 tablet every day by oral route. cyanocobalamin (VITAMIN B-12) 500 mcg tablet Take 2 Tablets by mouth. B complex vitamin diphenhydrAMINE (BENADRYL) 25 mg capsule Take 1 Capsule by mouth. everolimus (AFINITOR) 10 mg tablet TAKE 1 TABLET BY MOUTH ONCE DAILY. 30 tablet 11 03/11/2024 exemestane (AROMASIN) 25 mg tablet Take 1 Tablet by mouth. 10/25/2023 FLUoxetine (PROzac) 20 mg capsule Take 1 capsule (20 mg total) by mouth 2 (two) times a day. 01/07/2024 folic acid (FOLVITE) 1 mg tablet Take 1 tablet (1,000 mcg total) by mouth 1 (one) time each day. 01/04/2024 Lidocaine Viscous 2 % solution 09/04/2023 mirtazapine (REMERON) 7.5 mg tablet TAKE 1 TABLET (7.5 MG TOTAL) BY MOUTH EVERY NIGHT AT BEDTIME 90 tablet 04/01/2024 naloxone (NARCAN) 4 mg/0.1 mL nasal sprayIndications: opioid overdose,opioid-i nduced respiratory depression Administer 1 each (4 mg total) into affected nostril(s) if needed for opioid reversal or respiratory depression. Give 4 mg (1 spray) into one nostril. May repeat every 2-3 minutes if needed, alternating nostrils, until medical assistance becomes available. 2 each 03/24/2024 nystatin (MYCOSTATIN) 100,000 unit/mL suspension 02-22-20 Pt reports only taking as needed. 09/04/2023 palbociclib (IBRANCE) 125 mg tabletIndications :Primary malignant neoplasm of female breast (CMS/HCC) Take 1 tablet (125 mg total) by mouth 1 (one) time each day. Days 1-21 followed by 7 days off. Repeat every 28 days. 21 tablet 5 04/01/2024 oxyCODONE (ROXICODONE) 10 mg immediate release tablet Take 1 tablet (10 mg total) by mouth every 4 (four) hours if needed (Take one tablet by mouth every 4 hours as needed for up to 12 days.) for up to 12 days. Max Daily Amount: 60 mg 72 tablet 04/01/2024 atorvastatin (LIPITOR) 20 mg tablet Take 1 tablet (20 mg total) by mouth 1 (one) time each day. 12/11/2023 5 oxyCODONE (OxyCONTIN) 40 mg 12 hr abuse-deterrent tablet Take 1 tablet (40 mg total) by mouth every 12 (twelve) hours. Do not crush, chew, or split. Max Daily Amount: 80 mg 60 tablet 03/21/2024 documented as of this encounter Discharge Disposition Disposition Code Departure Means Destination Home or Self Care documented in this encounter Plan of Treatment Upcoming Encounters Date Type Department Care Team (Late st Contact Info) Description 05/12/2024 11:30 AM EST Appointment [facility] [address] [place] [phone] documented as of this encounter Procedures Procedure Name Priority Date/Time Associated Diagnosis Comments MR THORACIC SPINE WO AND W CONTRAST Routine 04/02/2024 2:40 PM EST Malignant neoplasm metastatic to bone (CMS/HCC) Carcinoma of breast metastatic to bone, unspecified laterality (CMS/HCC) documented in this encounter Results * MR Thoracic Spine wo and w Contrast (04/02/2024 2:40 PM EST) Anatomical Region Laterality Modality T-spine, Spine Magnetic Resonan ce 04/02/2024 2:48 PM EST Impressions 04/02/2024 3:34 PM EST 1. ??Diffuse osseous metastatic disease. ??No evidence of epidural tumor extension. 2. ??Multiple liver lesions, more numerous than on the remote comparison CT obtained in 2019, concerning for hepatic metastatic disease. There is also suggestion of new retroperitoneal lymphadenopathy. ??Further evaluation with dedicated contrast-enhanced CT of the abdomen and pelvis is recommended. A [employer] message has been communicated to the office of KIRK DSOUZA via the [employer] on 04/02/2024 3:28 PM, Message ID [id number]. -------- FINAL REPORT -------- Dictated By: Yunier Payan Dictated Date: 04/02/2024 14:48 ET Assigned Physician: Yunier Payan Reviewed and Electronically Signed By: Yunier Payan Signed Date: 04/02/2024 15:34 ET Workstation ID: [id number] Transcribed By: Self Edit Transcribed Date: 04/02/2024 14:48 ET Narrative 04/02/2024 3:34 PM EST PROCEDURE: Contrast-enhanced MRI of the thoracic spine. HISTORY: Invasive breast cancer, stage IV, initial workup. COMPARISON: CT abdomen and pelvis, 04/02/2018. TECHNIQUE: Sagittal and axial multisequence MRI of the thoracic spine with and without intravenous contrast. IV contrast dose: 8 mL Dotarem administered from a 15 mL vial with 7 mL discarded. FINDINGS: There are multiple partially visible T2 hyperintense enhancing liver lesions. ??These are more numerous and larger than on the comparison CT in 2019. ??The liver is only partially included in the [id number] and is incompletely evaluated. There is also suggestion of upper retroperitoneal lymphadenopathy which is not seen on the comparison CT. Alignment is normal. ??No compression deformity. ??Diffusely heterogeneous marrow signal, with diffuse T1 hypointense, T2 hyperintense enhancing lesions consistent with widespread osseous metastatic disease. ??There are no findings to suggest epidural tumor extension. The thoracic cord appears normal in caliber and signal. Mild diffuse degenerative changes of the vertebral endplates and facet joints. ??There is a small right central protrusion which indents the cord at T8-9. ??No significant spinal or foraminal stenosis. Procedure Note Yunier Payan MD - 04/02/2024 PROCEDURE: Contrast-enhanced MRI of the thoracic spine. HISTORY: Invasive breast cancer, stage IV, initial workup. COMPARISON: CT abdomen and pelvis, 04/02/2018. TECHNIQUE: Sagittal and axial multisequence MRI of the thoracic spine withand without intravenous contrast. IV contrast dose: 8 mL Dotarem administered from a 15 mL vial with 7 mLdiscarded. FINDINGS: There are multiple partially visible T2 hyperintense enhancing liverlesions. These are more numerous and larger than on the comparison CT [id number]. The liver is only partially included in the [id number]-ke-loiv and isincompletely evaluated. There is also suggestion of upper retroperitoneal lymphadenopathy which isnot seen on the comparison CT. Alignment is normal. No compression deformity. Diffusely heterogeneousmarrow signal, with diffuse T1 hypointense, T2 hyperintense enhancinglesions consistent with widespread osseous metastatic disease. There areno findings to suggest epidural tumor extension. The thoracic cord appears normal in caliber and signal. Mild diffuse degenerative changes of the vertebral endplates and facetjoints. There is a small right central protrusion which indents the cordat T8-9. No significant spinal or foraminal stenosis. IMPRESSION: 1. Diffuse osseous metastatic disease. No evidence of epidural tumorextension. 2. Multiple liver lesions, more numerous than on the remote comparison CTobtained in 2018, concerning for hepatic metastatic disease. There is alsosuggestion of new retroperitoneal lymphadenopathy. Further evaluationwith dedicated contrast- enhanced CT of the abdomen and pelvis isrecommended. A [employer] message has been communicated to the office of KIRK DSOUZA via[employer] System on 04/02/2024 3:28 PM, MessageID [id number]. -------- FINAL REPORT -------- Dictated By: Yunier Payan Dictated Date: 04/02/2024 14:48 ET Assigned Physician: Yunier Payan Reviewed and Electronically Signed By: Yunier Payan Signed Date: 04/02/2024 15:34 ET Workstation ID: [id number] Transcribed By: Self Edit Transcribed Date: 04/02/2024 14:48 ET [facility] PROCEDURES Final Res ult documented in this encounter Visit Diagnoses Diagnosis Carcinoma of breast metastatic to bone, unspecified laterality (CMS/HCC) documented in this encounter Administered Medications Inactive Administered Medications - up to 3 most recent administrations Medication Order MAR Action Action Date Dose Rate Site gadoterate meglumine (CLARISCAN, DOTAREM) injection 8 mL 8 mL, intravenous, Once in imaging, Starting on Sun04/02/24 at 1439, For 1 dose Given 04/02/2024 2:39 PM EST 8 mL documented in this encounter Orders Medications Ordered That Onur ht Not Have Been Administered Count Last Ordered Date First Ordered Date gadoterate meglumine (KEYSHAWN CAN, DOTAREM) injection 8 mL 1 04/02/2024 documented in this encounter Additional Health Concerns Assessment Noted Time PHQ-9 Depression Total Score: 2 02/13/20 12:53 PM EST documented as of this encounter Care Teams Remote Inpatient Coder Relationship Specialty Start Date End Date Daisha Ji MD [address] [place], [place] [id number] PCP - General Internal Medicine 02/13/24 documented as of this encounter
--- OUTSIDE RECORDS SUMMARY | 2024-04-24 13:07 | XMS_ITS | Encounter Summary ---
Author Organization [facility] Address [address] [place] [address] Care Team Providers Care Modern Dancer Name Role Phone Daisha Ji MD Primary Care Provider [phone] Reason for Visit * Reason Comments Follow-up Encounter Details Date Type Department Care Team (Late st Contact Info) Description 04/18/2024 11:00 AM EST Office Visit [facility] Hematology Oncology [address] [place] [id number] Leonel Dsouza MD [address] [place] [address] Carcinoma of breast metastatic to bone, unspecified laterality (CMS/HCC) (Primary Dx); Jaundice; Pain management Social History Tobacco Use Types Packs/Day Years [...] PM EST documented as of this encounter Last Filed Vital Signs Vital Sign Reading Time Taken Comments Blood Pressure 128/78 04/18/2024 11:04 AM EST Pulse 118 04/18/2024 11:04 AM EST Temperature 36.6 ??C (97.9 ??F) 04/18/2024 11:[address] Respiratory Rate - - Oxygen Saturation 98% 04/18/2024 11:04 AM EST Inhaled Oxygen Concentration - - Weight 39.9 kg (88 lb) 04/18/2024 11:04 AM EST Height - - Body Mass Index 16.1 02/13/2024 12:48 PM EST documented in this encounter Progress Notes * Leonel Dsouza MD - 04/18/2024 11:00 AM EST ONC CANCER FOLLOW UP CHIEF COMPLAINT: Follow-up IDENTIFIER:Reba Cabrera is a 53 y.o. female. HPI: 53-year-old female, who diagnosed 9 years ago with metastatic hormone positive breast cancer, patient was treated with different therapeutic regimen with decent response, but last few months patient has been having significant progression of disease, I tried to start patient on Ibrance and along with Faslodex but she refused to take Faslodex, patient recently scan showed significant worsening of disease in the bone as well as in the liver etc. patient has been jaundiced, patient is here with her family to discuss about further intervention ROS: Has not been feeling well Lately noticed more jaundice Have no appetite Continue to lose weight Having worsening abdominal pain and distention Oncology History Primary malignant neoplasm of female breast (CMS/HCC) 02/16/2017 Initial Diagnosis Primary malignant neoplasm of female breast (CMS/HCC) 02/11/2024 Cancer Staged Staging form: Breast, AJCC V7 - Clinical: Stage IV (M1) - Signed by Wagner Estes MD on 02/11/2024 Malignant neoplasm metastatic to bone (CMS/HCC) 01/22/2020 Initial Diagnosis Malignant neoplasm metastatic to bone (CMS/HCC) 02/12/2024 - Supportive Therapy DENOSUMAB ( XGEVA ) 120 MG EVERY 12 WEEKS & FULVESTRANT ( FASLODEX ) 500 MG INDUCTION FOLLOWED BY EVERY 4 WEEKS MAINTENANCE Plan Provider: Leonel Dsouza MD 02/22/2024 - Radiation Therapy The patient saw No care engineer steam to display for radiation treatment. This is the current list ofradiation treatment: 3D CONSTRUCTION SITE MANAGER: Left Hip Treatment Period Technique Fraction Dose Fractions Total Dose Course 1 02/22/2024-02/22/2024 (days elapsed: 0) LT hip 02/22/2024-02/22/2024 AP/PA 800 / 800 cGy 800 / 800 cGy Malignant neoplasm of female breast, unspecified estrogen receptor status, unspecified laterality, unspecified site of breast (CMS/HCC) 02/12/2024 Initial Diagnosis Malignant neoplasm of female breast, unspecified estrogen receptor status, unspecified laterality, unspecified site of breast (CMS/HCC) 02/12/2024 - Supportive Therapy DENOSUMAB ( XGEVA ) 120 MG EVERY 12 WEEKS & FULVESTRANT ( FASLODEX ) 500 MG INDUCTION FOLLOWED BY EVERY 4 WEEKS MAINTENANCE Plan Provider: Leonel Dsouza MD 02/22/2024 - Radiation Therapy The patient saw No care engineer steam to display for radiation treatment. This is the current list ofradiation treatment: 3D CONSTRUCTION SITE MANAGER: Left Hip Treatment Period Technique Fraction Dose Fractions Total Dose Course 1 02/22/2024-02/22/2024 (days elapsed: 0) LT hip 02/22/2024-02/22/2024 AP/PA 800 / 800 cGy 800 / 800 cGy Carcinoma of breast metastatic to bone, unspecified laterality (CMS/HCC) 02/13/2024 Initial Diagnosis Carcinoma of breast metastatic to bone, unspecified laterality (CMS/HCC) Cancer Staging Primary malignant neoplasm of female breast (CMS/HCC) Staging form: Breast, AJCC V7 - Clinical: Stage IV (M1) - Signed by Wagner Estes MD on 02/11/2024 Oncology History Overview Note Left Breast Biopsy (11/11/14): Infiltrating Ductal carcinoma ER positive, [place] Positive, Her2 karla negative ([facility]- 11/10/14) F- 18 sodium flouride PET- Multiple bone mets Biopsy bone deferred per tumor board recommendation- per radiology definitive bone mets, innumerable tiny lesions and difficult target Ct CAP - no visceral ds Subsequent bone scan confirmed bone mets Treatment Tamoxifen X ~ 1 month ( nov 2014) B/L Oophorectomy ( surgical menopause) in Dec 2014 Started Pablociclib with femara Dec 2014 to present Dose reduced after 1st cycle to 100mg 21/28 days Started Zometa in June 2015 ( delayed due to dental extraction Switched to xgeva due to aches and pains Held June 2016 due to Jaw pain Because of family reason patient moved to [place] in 2016, where she was treated at [facility] [place] ([facility]) Patient initially continue with CK4 6 inhibitor along with Femara Patient apparently have significant progression of disease in July 2019 when PET scan showed significant osseous disease as well as metastatic disease along the left breast area,( patient was in so much pain started on nerve stimulator by pain management) Patient disease progress again in 2019, this time she was tried on Verzenio but unfortunately couldnot tolerated, subsequently she was switched to capecitabine but again have significant chemotoxicity Patient in 2022 switched to Afinitor along with exemestane and this combination she was tolerating and responding well, patient moved back to [place] in the end of 2022, patient saw me on 03/29/2023, I recommend to continue Afinitor along with exemestane, tumor marker CA 27-29 checked was approximately 40 (we arrange patient to go pain management regarding refilling of her pain medication) Patient in fall 2023 developed worsening pain discomfort, my workup in March 2024 showed evidenceof significant worsening of her disease, her CA 27-29 level was more than 700 Patient was switched to Ibrance with Faslodex but she was reluctant to start Faslodex, I met patient and family on 04/18/2024, after long discussion decision made to go with palliative care/hospice care PAST MEDICAL HISTORY: Patient Active Problem List Diagnosis Body mass index (BMI) of 5th to less than 85th percentile for age in patient less than 20 years of age Primary malignant neoplasm of female breast (CMS/HCC) Acute pharyngitis Acute urinary tract infection Chronic pain syndrome Fever Herpes simplex Kidney stone Malignant neoplasm metastatic to bone (CMS/HCC) Pain in buttock Streptococcal sore throat Upper respiratory infection Malignant neoplasm of female breast, unspecified estrogen receptor status, unspecified laterality, unspecified site of breast (CMS/HCC) Carcinoma of breast metastatic to bone, unspecified laterality (CMS/HCC) Past Medical History: Diagnosis Date Anemia DX:Anemia Breast cancer (CMS/HCC) DX:Breast cancer (HCC) Breast cancer, stage 4, left (CMS/HCC) 11/05/2014 DX:Breast cancer, stage 4, left (HCC); COMMENT: Metastatic to bone and liver, [facility],Dr. Garcia Depression DX:Depression Knee pain DX:Knee pain Malignant neoplasm of right breast (CMS/HCC) 09/15/2016 DX:Malignant neoplasm of right breast (HCC) Metastatic cancer (CMS/HCC) 11/05/2014 Mixed hyperlipidemia DX:Mixed hyperlipidemia Osteoporosis Polyneuropathy DX:Polyneuropathy Seasonal allergies DX:Seasonal allergies SOCIAL HISTORY: Social History Tobacco Use Smoking status: Never Smokeless tobacco: Never Substance Use Topics Alcohol use: No FAMILY HISTORY: Family History Problem Relation Name Age of Onset Heart disease Mother Dorinda Cabrera Breast cancer Paternal Grandmother Melinda Bone cancer Paternal Grandmother Melinda Family Status Relation Name Status Mother Dorinda Cabrera (Not Specified) PGM Melinda (Not Specified) No partnership data on file Current Outpatient Medications: acetaminophen (TYLENOL) 500 mg tablet, TAKE1 TAB BY MOUTH EVERY 6 HOURS NEEDED FOR PAIN, Disp: ,Rfl: ascorbic acid (Vitamin C) 500 mg chewable tablet, Take 1 Tablet by mouth., Disp: , Rfl: calcium carbonate/vitamin D3 (CALCIUM WITH VITAMIN D3 ORAL), Calcium Carb- Cholecalciferol (Calcium + Vitamin D3) 600-5 MG-MCG Tab Take 1 tablet every day by oral route., Disp: , Rfl: cyanocobalamin (VITAMIN B-12) 500 mcg tablet, Take 2 Tablets by mouth. B complex vitamin, Disp: , Rfl: diphenhydrAMINE (BENADRYL) 25 mg capsule, Take 1 Capsule by mouth., Disp: , Rfl: everolimus (AFINITOR) 10 mg tablet, TAKE 1 TABLET BY MOUTH ONCE DAILY., Disp: 30 tablet, Rfl: 11 exemestane (AROMASIN) 25 mg tablet, Take 1 Tablet by mouth., Disp: , Rfl: FLUoxetine (PROzac) 20 mg capsule, Take 1 capsule (20 mg total) by mouth 2 (two) times a day., Disp: , Rfl: folic acid (FOLVITE) 1 mg tablet, Take 1 tablet (1,000 mcg total) by mouth 1 (one) time each day., Disp: , Rfl: letrozole (FEMARA) 2.5 mg tablet, Take 1 tablet (2.5 mg total) by mouth 1 (one) time each day Take with or without food., Disp: 30 tablet, Rfl: 2 Lidocaine Viscous 2 % solution, , Disp: , Rfl: mirtazapine (REMERON) 7.5 mg tablet, TAKE 1 TABLET (7.5 MG TOTAL) BY MOUTH EVERY NIGHT AT BEDTIME, Disp: 90 tablet, Rfl: 0 naloxone (NARCAN) 4 mg/0.1 mL nasal spray, Administer 1 each (4 mg total) into affected nostril(s) if needed for opioid reversal or respiratory depression. Give 4 mg (1 spray) into one nostril. May repeat every 2-3 minutes if needed, alternating nostrils, until medical assistance becomes available., Disp: 2 each, Rfl: 11 nystatin (MYCOSTATIN) 100,000 unit/mL suspension, 02-22-20 Pt reports only taking as needed., Disp:, Rfl: omeprazole (PriLOSEC) [address] capsule, Take 1 capsule (20 mg total) by mouth 1 (one) time each day. Do not crush or chew., Disp: 30 each, Rfl: 11 oxyCODONE (ROXICODONE) 30 mg immediate release tablet, Take 1 tablet (30 mg total) by mouth every 6(six) hours if needed for severe pain. Max Daily Amount: 120 mg, Disp: 60 tablet, Rfl: 0 palbociclib (IBRANCE) 125 mg tablet, Take 1 tablet (125 mg total) by mouth 1 (one) time each day. Days 1-21 followed by 7 days off. Repeat every 28 days., Disp: 21 tablet, Rfl: 5 dexAMETHasone (DECADRON) 1 mg tablet, Take 1 tablet (1 mg total) by mouth 2 (two) times daily afterbreakfast and dinner for 7 days., Disp: 14 each, Rfl: 0 Allergies Allergen Reactions [facility] House Dust Dust Other reaction(s): eye swelling House Dust Swelling Capecitabine Unknown Other Reaction(s): OTHER Sore throat , intense pain Other Itching Other (No Interaction Warnings) Other Reaction(s): OTHER, Runny Nose/Rhinitis Enviormental PHYSICAL EXAM: Visit Vitals BP 128/78 (BP Location: Left arm, Patient Position: Sitting, BP Cuff Size: Small adult) Pulse (!) 118 Temp 36.6 ??C (97.9 ??F) (Temporal) Wt (!) 39.9 kg (88 lb) SpO2 98% BMI 16.10 kg/m?? OB Status Unknown Smoking Status Never BSA 1.35 m?? ECOG 1-2 APPEARANCE: Alert and oriented in no acute distress though looks very frail and jaundiced EYES: Icteric sclera and pale conjunctiva ORAL CAVITY: No erythema or exudates NECK: Neck supple, no cervical adenopathy, HEART: S1-S2 with tachycardia LUNG: clear to auscultation bilaterally except decreased breath sound the bases LYMPH NODES: No palpable superficial adenopathy ABDOMEN: Distended, soft, mild diffuse tenderness in abdomen EXTREMITIES: Both lower extremity swelling LABS: WBC 5.5, hemoglobin 9.3 g, MCV 77 and platelet count 270 CA 27-29 level 715 BUN 10 creatinine 0.98 SGOT 196, SGPT 103, alk phos 384 and Recent scan showed diffuse osseous metastatic disease getting worse as well as multiple liver lesion more numerous than previous scan IMPRESSION: 1. Carcinoma of breast metastatic to bone, unspecified laterality (CMS/HCC) 2. Jaundice 3. Pain management 53-year-old female who has metastatic hormone receptor positive invasive carcinoma of breast diagnosed 9 years ago, patient was treated with different therapeutic regimen with decent response, patient most recently was started on Ibrance along with Faslodex but refused to take Faslodex, recently scan showed significant progression of disease in the bone as well as liver, patient has been very jaundiced. I discussed with patient and her family in detail about her overall prognosis which is very poor aswell as different other therapeutic option which may cause more toxicity than potential benefit, after discussing overall prognosis, different options of palliative chemotherapy etc. decision made toconsider best supportive care/palliative care. After discussion patient's family decided to go withpalliative care under hospice services Patient has been on morphine and taking OxyContin/oxycodone for breakthrough pain but despite that she is still having moderate to significant discomfort, I told patient I can increase long-acting pain medication but since we are arranging hospice services, I will let hospice services decide about pain management because they will be watching her very closely PLAN: My office will arrange hospice services Leonel Dsouza MD documented in this encounter Plan of Treatment Upcoming Encounters Date Type Department Care Team (Late st Contact Info) Description 05/12/2024 11:30 AM EST Appointment [facility] [address] [place] [id number] documented as of this encounter Visit Diagnoses Diagnosis Carcinoma of breast metastatic to bone, unspecified laterality (CMS/HCC)- Primary Jaundice Jaundice, unspecified, not of Pain management documented in this encounter Discontinued Medications Medication Sig Discontinue Reason Start Date End Da te atorvastatin (LIPITOR) 20 mg tablet Take 1 tablet (20 mg total) by mouth 1 (one) time each day. 12/11/2023 04/18/2024 documented as of this encounter Additional Health Concerns Assessment Noted Time PHQ-9 Depression Total Score: 2 02/13/20 12:53 PM EST documented as of this encounter Care Teams Modern Dancer Relationship Specialty Start Date End Date Daisha Ji MD [address] [place] [id number] PCP - General Internal Medicine 02/13/24 documented as of this encounter
--- OUTSIDE RECORDS SUMMARY | 2024-04-24 13:07 | XMS_ITS | Encounter Summary ---
Author Organization [facility] [place] [address] Care Team Providers Care Roll Tension Tester Name Role Phone Palak Willard MD Primary Care Provider [phone] Encounter Details Date Type Department Care Team (Late st Contact Info) Description 12/19/2023 10:54 AM EDT Hospital Encounter TH HISTORIC ENCOUNTERS EASTERN CONVERSION ONLY Leonel Dsouza MD [address] [place] [address] Social History Tobacco Use Types Packs/Day Years [...] Blood Pressure 134/88 12/19/2023 10:57 AM EDT Sitting Right arm Pulse 84 12/19/2023 10:57 AM EDT Temperature - - Respiratory Rate - - Oxygen Saturation - - Inhaled Oxygen Concentration - - Weight 41.3 kg (91 lb) 12/19/2023 10:57 AM EDT Height 157.5 cm (5' 2.01 ) 11/13/2023 1 2:04 PM EDT Body Mass Index 16.64 11/13/2023 12:04 PM EDT documented in this encounter Progress Notes * Leonel Dsouza MD - 12/19/2023 11:00 AM EDT CHIEF COMPLAINT: Follow-up IDENTIFIER:Reba Cabrera is a 53 y.o. female. HPI: 53-year-old female, who has metastatic hormone positive breast cancer diagnosed initiallyin 2014, please see oncology history, patient was treated with different therapeutic regimen, eap counselor [place] as well as been [facility] in [place] when she was living in [place] for few years. Patient is currently on Afinitor and exemestane with decent response ROS: GENERAL: No significant anorexia or further weight loss, mild fatigue but better than before HEENT: no headache or any visual symptom NECK: No discomfort or lumps. RESPIRATORY: No cough or shortness of breath CARDIOVASCULAR: No chest pain. GI: No abdominal discomfort, blood in stools or black stools MUSCULOSKELETAL: No new arthritic pain, pain has been in good control with current pain medication HEMATOLOGY/LYMPHOLOGY No prolonged bleeding, easy bruisability or swollen nodes EXT: no significant swelling rash or discomfort Oncology History Overview Note Left Breast Biopsy (11/11/14): Infiltrating Ductal carcinoma ER positive, [place] Positive, Her2 karla negative ([facility]- 11/10/14) F- [...] Dose reduced after 1st cycle to 100mg 21/ days Started Zometa in June 2015 ( delayed due to dental extraction Switched to xgeva due to aches and pains Held June 2016 due to Jaw pain Because of family reason patient moved to [place] in 2016, where she was treated at [facility] ([facility]) Patient initially continue with CK4 6 inhibitor [...] and responding well, patient moved back to [place] in the end of 2022, patient saw me on 03/29/2023, I recommend to continue Afinitor along with exemestane, tumor marker CA 27-29 checked was approximately 40 (we arrange patient to go pain management regarding refilling of her pain medication) Malignant neoplasm of overlapping sites of left breast (HCC) 11/11/2014 Initial Diagnosis Malignant neoplasm of left breast (HCC) 05/30/2023 - Supportive Therapy [facility] DENOSUMAB 120MG (XGEVA) Plan Provider: Leonel Dsouza MD Carcinoma of left breast metastatic to bone (HCC) 05/21/2023 Initial Diagnosis Carcinoma of left breast metastatic to bone (HCC) 05/30/2023 - Supportive Therapy [facility] DENOSUMAB 120MG (XGEVA) Plan Provider: Leonel Dsouza MD PAST MEDICAL HISTORY: Metastatic breast cancer Dyslipidemia Anxiety/depression Nephrolithiasis ?? PAST SURGICAL HISTORY: Left breast mastectomy Bilateral salpingo-oophorectomy? SOCIAL HISTORY: Never smoke She denies alcohol use and abuse She is She lives by herself ?? FAMILY HISTORY: Noncontributory Current Outpatient Medications: ??? ascorbic acid (VITAMIN C) 500 MG tablet, Take 1 tablet (500 mg total) by mouth daily., Disp: , Rfl: ??? atorvastatin (LIPITOR) tablet 20 mg, Take 1 tablet (20 mg total) by mouth daily., Disp: , Rfl: ??? Benadryl hnlw-Gxkuqj-Rxmnicrh-Lidocaine Visc mouth wash 1:1:1:1, Swish and spit 10 mL every 4 (four) hours as needed., Disp: 240 mL, Rfl: 3 ??? Calcium Carb-Cholecalciferol (CALCIUM 600/VITAMIN D3 PO), Take by mouth 2 (two) times a day., Disp: , Rfl: ??? cholecalciferol (VITAMIN D3) 1000 UNITS tablet, Take 1 tablet (1,000 Units total) by mouth daily., Disp: , Rfl: ??? diphenhydrAMINE (ALLERGY RELIEF) 25 mg capsule, Take 1 capsule (25 mg total) by mouth daily., Disp: , Rfl: ??? escitalopram (LEXAPRO) 5 MG tablet, Take 1 tablet (5 mg total) by mouth daily., Disp: 60 tablet, Rfl: 0 ??? everolimus (AFINITOR) 7.5 MG tablet, Take by mouth, Disp: , Rfl: ??? exemestane (AROMASIN) 25 MG tablet, Take 1 tablet (25 mg total) by mouth daily, Disp: 90 tablet, Rfl: 2 ??? FLUoxetine (PROZAC) 20 MG capsule, Take 1 capsule (20 mg total) by mouth daily., Disp: , Rfl: ??? folic acid (FOLVITE) tablet 1 mg, Take 1 tablet (1 mg total) by mouth daily., Disp: , Rfl: ??? gabapentin (NEURONTIN) 100 MG capsule, Take 1 capsule (100 mg total) by mouth 2 (two) times a day., Disp: , Rfl: ??? mirtazapine (REMERON) 7.5 MG tablet, Take 1 tablet (7.5 mg total) by mouth every night at bedtime., Disp: 90 tablet, Rfl: 0 ??? oxyCODONE HCl 20 MG TABS, Take 20 mg by mouth every 4 (four) hours as needed., Disp: 72 tablet,Rfl: 0 ??? traZODone (DESYREL) 100 MG tablet, Take 1 tablet (100 mg total) by mouth every night at bedtime., Disp: , Rfl: ??? vitamin B-12 (CYANOCOBALAMIN) 500 MCG tablet, Take 2 tablets (1,000 mcg total) by mouth daily.,Disp: , Rfl: You are allergic to the following Date Reviewed: 12/19/2023 Allergen Reactions Capecitabine Other (See Comments) Sore throat , intense pain PHYSICAL EXAM: BP 134/88 (BP Location: Right arm) Pulse 84 Temp 98.1 ??F (36.7 ??C) (Temporal) Wt 41.3 kg (91 lb) SpO2 100% BMI 16.64 kg/m?? ECOG 0-1 APPEARANCE: Alert and oriented x 3 in no acute distress EYES: nonicteric sclera pink conjunctiva ORAL CAVITY: No erythema or exudates NECK: Neck supple, no adenopathy, HEART: normal S1 and S2 LUNG: clear to auscultation bilaterally except decreased breath sound the bases LYMPH NODES: No palpable superficial adenopathy ABDOMEN: Palpable pump on the left abdomen, soft, nontender and no organomegaly appreciated EXTREMITIES: No significant edema erythema or tenderness LABS: CA 27-29 level is 190 (few weeks ago 150) IMPRESSION: SNOMED CT(R) 1. Carcinoma of left breast metastatic to bone (HCC) METASTATIC MALIGNANT NEOPLASM TO BONE 2. Microcytic anemia MICROCYTIC ANEMIA 53-year-old female, who has a long history of metastatic hormone positive breast cancer, patient was diagnosed more than 8 years ago, patient was treated with different therapeutic regimen,patient was initially diagnosed and treated in [facility] but she moved to [place] and was treated at [facility] until last year, patient moved back to [place], I have been continuing her Afinitor and exemestane since she has been relatively stable but tumor marker has been gradually increasing though no other significant evidence of metastatic disease which is worsening. I explained patient and her sister about her metastatic breast cancer and recommend to continue Afinitor and exemestane for now, will reassess in next 2 to 3 months I also discussed with the patient and family about her microcytic anemia, which has improved, her recent hemoglobin is more than 9 g it was less than 9 g few weeks ago PLAN: Continue Afinitor and exemestane Continue current pain medication Will check labs including tumor marker blood count chemistries etc. in 2 to 3 months, if continue to have evidence of worsening, we will consider ribociclib with Faslodex or palliative chemotherapy etc. Leonel Dsouza MD documented in this encounter Plan of Treatment Upcoming Encounters Date Type Department Care Team (Late st Contact Info) Description 05/12/2024 11:30 AM EST Appointment [facility] [address] [place] [phone] documented as of this encounter Procedures Procedure Name Priority Date/Time Associated Diagnosis Comments ..MISCELLANEOUS REFERENCE LAB TEST 12/19/2023 ..MISCELLANEOUS REFERENCE LAB TEST 12/19/2023 documented in this encounter Results * Miscellaneous reference lab test (12/19/2023) Provider Onbase MD LAB BLOOD ORDERABLES Final Re sult * Miscellaneous reference lab test (12/19/2023) us Provider Onbase MD LAB BLOOD ORDERABLES Final Re sult documented in this encounter Visit Diagnoses Not on filedocumented in this encounter Care Teams Roll Tension Tester Relationship Specialty Start Date End Date Palak Willard MD [address] [place] [id number] PCP - General 03/29/23 02/12/24 documented as of this encounter
--- OUTSIDE RECORDS SUMMARY | 2024-04-24 13:07 | XMS_ITS | Encounter Summary ---
Author Organization [facility] Address [address] [place] [address] Care Team Providers Care Aquaculture Director Name Role Phone Daisha Ji MD Primary Care Provider [phone] Reason for Visit * Episode Based Medications (Routine) - Authorized Specialty Diagnoses / Procedures Referred By Shelly tovar Referred To Contact Diagnoses Malignant neoplasm metastatic to bone (CMS/HCC) Malignant neoplasm of female breast, unspecified estrogen receptor status, unspecified laterality, unspecified site of breast (CMS/HCC) Leonel Dsouza MD [address] [place] [address] Phone: tel: fax: [address] [address] Phone: tel: fax: Referral ID Status Reason Start Date Expiration Date V isits Requested Visits Authorized [id number] Authorized 02/11/2024 02/10/2025 1 10 Encounter Details Date Type Department Care Team (Latest Contact Info) Description 04/14/2024 1:30 PM EST - 04/14/2024 11:59 PM EST Hospital Encounter [facility] [address] [place] [phone] Malignant neoplasm metastatic to bone (CMS/HCC) (Primary Dx); Malignant neoplasm of female breast, unspecified estrogen receptor status, unspecified laterality, unspecified site of breast (CMS/HCC) Discharge Disposition: Home or Self Care [...] Sign Reading Time Taken Comments Blood Pressure 122/83 04/14/2024 1:48 PM EST Pulse 108 04/14/2024 1:48 PM EST Temperature 36.6 ??C (97.8 ??F) 04/14/2024 1:48 PM ES T Respiratory Rate - - Oxygen Saturation 99% 04/14/2024 1:48 PM EST Inhaled Oxygen Concentration - - Weight 39.7 kg (87 lb 8.4 oz) 04/14/2024 1:48 PM EST Height - - Body Mass Index 16.01 02/13/2024 12:48 PM EST documented in this encounter Medications at Time of Discharge [...] mouth 1 (one) time each day. 01/04/2024 letrozole (FEMARA) 2.5 mg tabletIndications :Primary malignant neoplasm of female breast (CMS/HCC) Take 1 tablet (2.5 mg total) by mouth 1 (one) time each day Take with or without food. 30 tablet 2 04/14/2024 6 Lidocaine Viscous 2 % solution 09/04/2023 mirtazapine [...] until medical assistance becomes available. 2 each 11 03/24/2024 6 nystatin (MYCOSTATIN) 100,000 unit/mL suspension 02-22-20 Pt reports only taking as needed. 09/04/2023 omeprazole (PriLOSEC) [address] capsule Take 1 capsule (20 mg total) by mouth 1 (one) time each day. Do not crush or chew. 30 each 11 04/14/2024 oxyCODONE (ROXICODONE) 30 mg immediate release tablet Take 1 tablet (30 mg total) by mouth every 6 (six) hours if needed for severe pain. Max Daily Amount: 120 mg 60 tablet 04/14/2024 palbociclib (IBRANCE) 125 mg tabletIndications :Primary malignant neoplasm of female breast (CMS/HCC) Take 1 tablet (125 mg total) by mouth 1 (one) time each day. Days 1-21 followed by 7 days off. Repeat every 28 days. 21 tablet 5 04/01/2024 atorvastatin (LIPITOR) 20 mg tablet Take 1 tablet (20 mg total) by mouth 1 (one) time each day. 12/11/2023 5 documented as of this encounter Discharge Disposition Disposition Code Departure Means Destination Home or Self Care documented in this encounter Progress Notes * Kaylene River, RN - 04/14/2024 1:30 PM EST Arrived in wheelchair with her daughter to start faslodex. Pt just recently started ibrance at home. She is jaundiced and has not been eating, has lost more weight, she has heartburn that has been bothering her just drinking water. She is taking oral fluids, but has not eaten today, she had small amount of chicken soup and half a packet of applesauce yesterday. Tells me she is feeling awful and something needs to change, maybe I need to go in the hospital to get a feeding tube. Had MRI on , f/u visit with Dr. Dsozua planned for Sunday to discuss results. Discussed case with Dr. Dsouza, he plans to discuss hospice with pt and fmily on Sunday, can give hydration if wanted. Pt declines fluids for today. 1445 Mariellen Counter up to chairside to discuss treatment options. Plan to refuse faslodex today and restart letrozole. Pt and family to meet with Dr. Dsouza on Sun to discuss hospice v further treatment. 1455 Samples of Ensure given, discussed staying hydrated and eating small amounts throughout the day, foods she likes. Requested script for prilosec from Dr. Dsouza for heartburn. Left in wheelchair with her daughter. Stable at D/C documented in this encounter Plan of Treatment Upcoming Encounters Date Type Department Care Team (Late st Contact Info) Description 05/12/2024 11:30 AM EST Appointment [facility] [address] [facility] 2nd [place] [phone] documented as of this encounter Visit Diagnoses Diagnosis Malignant neoplasm metastatic to bone (CMS/HCC)- Primary Malignant neoplasm of female breast, unspecified estrogen receptor status, unspecified laterality, unspecified site of breast (CMS/HCC) documented in this encounter Orders Medications Ordered That Onur ht Not Have Been Administered Count Last Ordered Date First Ordered Date fulvestrant (FASLODEX) chemo syringe 500 mg 1 04/14/2024 Nursing Count Last Ordered Date First Orde red Date ONC NURSING COMMUNICATION 1 04/14/2024 ONC NURSING COMMUNICATION 5 1 04/14/2024 documented in this encounter Additional Health Concerns Assessment Noted Time PHQ-9 Depression Total Score: 2 02/13/20 24 12:53 PM EST documented as of this encounter Care Teams Aquaculture Director Relationship Specialty Start Date End Date Daisha Ji MD [address] [place] [id number] PCP - General Internal Medicine 02/13/24 documented as of this encounter
--- OUTSIDE RECORDS SUMMARY | 2024-04-24 13:07 | XMS_ITS | Encounter Summary ---
Author Organization [facility] Address [address] [place] [address] Care Team Providers Care Mine Engineer Name Role Phone Daisha Ji MD Primary Care Provider [phone] Encounter Details Date Type Department Care Team (Late st Contact Info) Description 03/24/2024 Telephone [facility] Hematology Oncology [address] [place] [address] Annika Cosby MA Social History Tobacco Use Types Packs/Day Years [...] PM EST documented as of this encounter Progress Notes * Collin Calixto RN - 03/25/2024 10:51 AM EST Please see encounter in chart regarding Ibrance. * Lee Carlson MA - 03/24/2024 3:40 PM EST Returned call to pt's daughter, explained that Collin is initiating process of getting pt back on Ibrance. Also informed daughter that pharmacy is giving us a tough time getting medication approved given high dosage and her mother's wt. Informed her that I pended Oxy 10 mg Q4prn and narcan to Dr. Jacques, and she will approve it by the end of the day. * Lee Carlson MA - 03/24/2024 3:[address] Dsouza said to please start the process for Ibrance. * Annika Cosby MA - 03/24/2024 2:53 PM EST Pt daughter would like to know if Dr Dsouza can call her back to talk about starting the Ibrance again documented in this encounter Plan of Treatment Upcoming Encounters Date Type Department Care Team (Late st Contact Info) Description 05/12/2024 11:30 AM EST Appointment [facility] [address] [place] [phone] documented as of this encounter Visit Diagnoses Not on filedocumented in this encounter Additional Health Concerns Assessment Noted Time PHQ-9 Depression Total Score: 2 02/13/20 12:53 PM EST documented as of this encounter Care Teams Mine Engineer Relationship Specialty Start Date End Date Daisha Ji MD [address] [place] [id number] PCP - General Internal Medicine 02/13/24 documented as of this encounter
--- OUTSIDE RECORDS SUMMARY | 2024-04-24 13:07 | XMS_ITS | Encounter Summary ---
Author Organization [facility] Address [address] [place] [address] Care Team Providers Care Diver Helper Name Role Phone Daisha Ji MD Primary Care Provider [phone] Encounter Details Date Type Department Care Team (Late st Contact Info) Description 04/21/2024 Telephone [facility] Hematology Oncology [address] [place] [phone] Leonel Dsouza MD [address] [place] [address] Social History Tobacco Use Types Packs/Day Years [...] Progress Notes * Collin Calixto RN - 04/21/2024 4:13 PM EST Noted * Laxmi Manning - 04/21/2024 3:58 PM EST Peg stopped by pt will be admitted Sunday to [facility] documented in this encounter Plan of Treatment Upcoming Encounters Date Type Department Care Team (Late st Contact Info) Description 05/12/2024 11:30 AM EST Appointment [facility] Center [address] [place] [phone] documented as of this encounter Visit Diagnoses Not on filedocumented in this encounter Additional Health Concerns Assessment Noted Time PHQ-9 Depression Total Score: 2 02/13/20 12:53 PM EST documented as of this encounter Care Teams Diver Helper Relationship Specialty Start Date End Date Daisha Ji MD [address] [place] [id number] PCP - General Internal Medicine 02/13/24 documented as of this encounter
--- OUTSIDE RECORDS SUMMARY | 2024-04-24 13:07 | XMS_ITS | Encounter Summary ---
Author Organization [facility] [place] [address] Care Team Providers Care Assembler Show Motor Name Role Phone Palak Willard MD Primary Care Provider [phone] Encounter Details Date Type Department Care Team (Late st Contact Info) Description 01/09/2024 2:14 PM EDT Hospital Encounter TH HISTORIC ENCOUNTERS EASTERN CONVERSION ONLY Kirk Dsouza MD [address] [place] [address] Social History Tobacco Use Types Packs/Day Years [...] PM EST documented as of this encounter Plan of Treatment Upcoming Encounters Date Type Department Care Team (Late st Contact Info) Description 05/12/2024 11:[address] [facility] [address] [place] [phone] documented as of this encounter Procedures Procedure Name Priority Date/Time Associated Diagnosis Comments CR HIP UNI 2-3 VIEWS LT Routine 01/09/2024 5:18 PM EDT documented in this encounter Results * CR HIP UNI 2-3 VIEWS LT (01/09/2024 5:18 PM EDT) Anatomical Region Laterality Modality Radiographic Bere ging 01/09/2024 2:19 PM EDT Narrative 01/09/2024 5:18 PM EDT [facility] Diagnostic Imaging Department [address] [place] [id number] Patient: ??NIGEL CABALLERO F ?/Age/Sex: 1970 - - F Unit#: ??[id number] ? Location/Status: ??SPDIGEN/REG CLI ? Mnemonic/Ordering Site: ??HIP2-3VWLT/SPDI Ordering Physician: ??KIRK DSOUZA MD CR Hip Uni 2-3 Views LT - 01/09/24 - 0333 Report Status:Signed History: Left hip pain. Metastatic breast carcinoma. Comparison: CT abdomen/pelvis 04/01/18 Findings: An AP view of the pelvis to include both hips and AP and frog-leg lateral views of the left hip are submitted. Diffuse osteoblastic metastatic disease is again seen throughout the visualized skeleton, consisting of numerous small round sclerotic lesions. The hip joints are well-maintained. Femoral head contours are smooth. No pathologic fracture is identified area The overlying soft tissues are unremarkable. 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 No pathologic fracture identified. Dictating Physician: ??CAMILLE GREENE MD Electronically Signed by: ??CAMILLE GREENE MD Dic Date/Time: ??01/09/241715 Sign date/Time: ??01/09/241717 Procedure Note Camille Greene MD - 01/12/2024 [facility] Diagnostic Imaging Department [address] [place] [address] Patient: NIGEL CABALLERO /Age/Sex: 1970 - 53 - F Unit#: [id number] Location/Status: SPDIGEN/REG CLI Mnemonic/Ordering Site: HIP2-3VWLT/SPDI Ordering Physician: KIRK DSOUZA MD CR Hip Uni 2-3 Views LT - 01/09/24 - 1425 Report Status:Signed History: Left hip pain. Metastatic breast carcinoma. Comparison: CT abdomen/pelvis 04/01/18 Findings: An AP view of the pelvis to include both hips and AP and frog-leg lateralviews of the left hip are submitted. Diffuse osteoblastic metastatic disease isagain seen throughout the visualized skeleton, consisting of numerous smallround sclerotic lesions. The hip joints are well-maintained. Femoral head contours are smooth. No pathologic fracture is identified area The overlying soft tissues are unremarkable. 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 No pathologic fracture identified. Dictating Physician: CAMILLE GREENE MD Electronically Signed by: CAMILLE GREENE MD Dic Date/Time: 01/09/24 1716 Sign date/Time: 01/09/24 1718 Kirk Dsouza MD IMG XR PROCEDURES Final Resu lt documented in this encounter Visit Diagnoses Not on filedocumented in this encounter Care Teams Assembler Show Motor Relationship Specialty Start Date End Date Palak Willard MD [address] [place] [id number] PCP - General 03/29/23 02/12/24 documented as of this encounter
--- OUTSIDE RECORDS SUMMARY | 2024-04-24 13:07 | XMS_ITS | Encounter Summary ---
Author Organization [facility] Address [address] [place] [address] Care Team Providers Care Ict Quality Assurance Engineer Name Role Phone Daisha Ji MD Primary Care Provider [phone] Encounter Details Date Type Department Care Team (Late st Contact Info) Description 03/25/[address] [facility] Hematology Oncology [address] [place] [phone] Collin Calixto RN Social History Tobacco Use Types Packs/Day Years [...] Notes * Collin Calixto RN - 03/25/2024 10:30 AM EST Received message from Lee RIVERA regarding patient's decision to go back on Ibrance. offered a change in treatment at visit and patient has decided to go forward with plan. Script sent to her current pharmacy [id number] and email sent to inside rep. Nielson to help process the script. documented in this encounter Plan of Treatment Upcoming Encounters Date Type Department Care Team (Late st Contact Info) Description 05/12/2024 11:[address] [facility] [address] [place] [phone] documented as of this encounter Visit Diagnoses Not on filedocumented in this encounter Additional Health Concerns Assessment Noted Time PHQ-9 Depression Total Score: 2 02/13/20 24 12:53 PM EST documented as of this encounter Care Teams Ict Quality Assurance Engineer Relationship Specialty Start Date End Date Daisha Ji MD [address] [place] [address] [address] [place] [address] PCP - General Internal Medicine 02/13/24 documented as of this encounter
--- OUTSIDE RECORDS SUMMARY | 2024-04-24 13:07 | XMS_ITS | Clinical Summary ---
Author Organization [facility] Address [address] [place] [address] Phone Care Team Providers Care Experiential Therapist Name Role Phone Daisha Ji MD Primary Care Provider [phone] Allergies Active Allergy Reactions Criticality Noted Date Comments Capecitabine Unknown Medium 03/29/2023 Other Reaction(s): OTHER Sore throat , intense pain [facility] Dust High 10/15/2023 Dust Other reaction(s): eye swelling House Dust Swelling High 02/11/2024 Other Itching Medium 10/15/2023 Other (No Interaction Warnings) Other Reaction(s): OTHER, Runny Nose/Rhinitis Enviormental Medications exemestane (AROMASIN) 25 mg tablet Take 1 Tablet by mouth. 10/25/19 24 Active FLUoxetine (PROzac) 20 mg capsule Take 1 capsule (20 mg total) by mouth 2 (two) times a day. 01/07/20 24 Active folic acid (FOLVITE) 1 mg tablet Take 1 tablet (1,000 mcg total) by mouth 1 (one) time each day. 01/04/20 24 Active ascorbic acid (Vitamin C) 500 mg chewable tablet Take 1 Tablet by mouth. Active calcium carbonate/anu min D3 (CALCIUM WITH VITAMIN D3 ORAL) Calcium Carb-Cholecalc iferol (Calcium + Vitamin D3) 600-5 MG-MCG Tab Take 1 tablet every day by oral route. Active cyanocobalamin (VITAMIN B-12) 500 mcg tablet Take 2 Tablets by mouth. B complex vitamin Active diphenhydrAMIN E (BENADRYL) 25 mg capsule Take 1 Capsule by mouth. Active acetaminophen (TYLENOL) 500 mg tablet TAKE1 TAB BY MOUTH EVERY 6 HOURS NEEDED FOR PAIN 04/04/19 Active Lidocaine Viscous 2 % solution 09/04/19 Active nystatin (MYCOSTATIN) 100,000 unit/mL suspension 02-22-20 Pt reports only taking as needed. 09/04/19 Active dexAMETHasone (DECADRON) 1 mg tablet Take 1 tablet (1 mg total) by mouth 2 (two) times daily after breakfast and dinner for 7 days. 14 each 02/23/20 24 Active everolimus (AFINITOR) 10 mg tablet TAKE 1 TABLET BY MOUTH ONCE DAILY. 30 tablet 03/11/20 24 Active naloxone (NARCAN) 4 mg/0.1 mL nasal sprayIndicatio ns:opioid overdose,opioi d-induced respiratory depression Administer 1 each (4 mg total) into affected nostril(s) if needed for opioid reversal or respiratory depression. Give 4 mg (1 spray) into one nostril. May repeat every 2-3 minutes if needed, alternating nostrils, until medical assistance becomes available. 2 each 03/24/19 25 026 Active mirtazapine (REMERON) 7.5 mg tablet TAKE 1 TABLET (7.5 MG TOTAL) BY MOUTH EVERY NIGHT AT BEDTIME 90 tablet 04/01/19 25 Active palbociclib (IBRANCE) 125 mg tabletIndicati ons:Primary malignant neoplasm of female breast (CMS/HCC) Take 1 tablet (125 mg total) by mouth 1 (one) time each day. Days 1-21 followed by 7 days off. Repeat every 28 days. 21 tablet 5 04/01/19 25 Active oxyCODONE (ROXICODONE) 30 mg immediate release tablet Take 1 tablet (30 mg total) by mouth every 6 (six) hours if needed for severe pain. Max Daily Amount: 120 mg 60 tablet 04/14/19 25 Active omeprazole (PriLOSEC) [address] capsule Take 1 capsule (20 mg total) by mouth 1 (one) time each day. Do not crush or chew. 30 each 04/14/19 25 026 Active letrozole (FEMARA) 2.5 mg tabletIndicati ons:Primary malignant neoplasm of female breast (CMS/HCC) Take 1 tablet (2.5 mg total) by mouth 1 (one) time each day Take with or without food. 30 tablet 2 04/14/19 25 026 Active atorvastatin (LIPITOR) 20 mg tablet Take 1 tablet (20 mg total) by mouth 1 (one) time each day. 12/11/19 24 025 Discontinued mirtazapine (REMERON) 7.5 mg tablet TAKE 1 TABLET (7.5 MG TOTAL) BY MOUTH EVERY NIGHT AT BEDTIME 01/04/20 24 025 Discontinued oxyCODONE (OxyCONTIN) 40 mg 12 hr abuse-deterren t tablet Take 1 tablet (40 mg total) by mouth every 12 (twelve) hours. Do not crush, chew, or split. Max Daily Amount: 80 mg 60 tablet 03/21/19 25 025 Discontinued oxyCODONE (ROXICODONE) 10 mg immediate release tablet Take 1 tablet (10 mg total) by mouth every 4 (four) hours if needed (Take one tablet by mouth every 4 hours as needed for up to 12 days.) for up to 12 days. Max Daily Amount: 60 mg 72 tablet 03/24/19 25 025 Discontinued(R eorder) palbociclib (IBRANCE) 125 mg tabletIndicati ons:Primary malignant neoplasm of female breast (CMS/HCC) Take 1 tablet (125 mg total) by mouth 1 (one) time each day. 21 tablet 5 03/25/19 25 025 Discontinued(R eorder) oxyCODONE (ROXICODONE) 10 mg immediate release tablet Take 1 tablet (10 mg total) by mouth every 4 (four) hours if needed (Take one tablet by mouth every 4 hours as needed for up to 12 days.) for up to 12 days. Max Daily Amount: 60 mg 72 tablet 04/01/19 25 025 Active Problems Problem Noted Date Diagnosed Date [...] MD on 02/11/2024 Upper respiratory infection 02/16/2017 Encounters Date Type Department Care Team Description 04/21/2024 Telephone [facility] Hematology Oncology [address] [place] [phone] Leonel Dsouza MD 04/18/2024 11:00 AM EST Office Visit [facility] Hematology Oncology [address] [place] [phone] Leonel Dsouza MD Carcinoma of breast metastatic to bone, unspecified laterality (CMS/HCC) (Primary Dx); Jaundice; Pain management 04/14/2024 1:30 PM EST - 04/14/2024 11:59 PM EST Hospital Encounter [facility] [address] [place] [phone] Malignant neoplasm metastatic to bone (CMS/HCC) (Primary Dx); Malignant neoplasm of female breast, unspecified estrogen receptor status, unspecified laterality, unspecified site of breast (CMS/HCC) Discharge Disposition: Home or Self Care 04/02/2024 12:41 PM EST - 04/02/2024 11:59 PM EST Hospital Encounter [facility] MRI [address] [place] [phone] Malignant neoplasm metastatic to bone (CMS/HCC); Carcinoma of breast metastatic to bone, unspecified laterality (CMS/HCC) Discharge Disposition: Home or Self Care 03/25/2024 Patient Outreach [facility] Hematology Oncology [address] [place] [phone] Collin Calixto RN 03/24/2024 Telephone [facility] Hematology Oncology [address] [place] [phone] Annika Cosby IA 03/21/2024 11:00 AM EST Office Visit [facility] Hematology Oncology [address] [place] [phone] Leonel Dsouza MD Malignant neoplasm metastatic to bone (CMS/HCC) (Primary Dx); Carcinoma of breast metastatic to bone, unspecified laterality (CMS/HCC) 02/22/2024 11:24 AM EST - 02/22/2024 11:59 PM EST Hospital Encounter [facility] Radiation Oncology [address] [place] [phone] Samanta Olmstead MD Carcinoma of breast metastatic to bone, unspecified laterality (CMS/HCC) (Primary Dx) Discharge Disposition: Home or Self Care 02/22/2024 11:15 AM EST - 02/22/2024 11:59 PM EST Hospital Encounter [facility] Radiation Oncology [address] [place] [phone] Samanta Olmstead MD Carcinoma of breast metastatic to bone, unspecified laterality (CMS/HCC) (Primary Dx) Discharge Disposition: Home or Self Care 02/22/2024 11:00 AM EST - 02/22/2024 11:59 PM EST Hospital Encounter [facility] Radiation Oncology [address] [place] [phone] Samanta Olmstead MD Discharge Disposition: Home or Self Care 02/15/2024 8:50 AM EST - 02/15/2024 11:59 PM EST Hospital Encounter [facility] Radiation Oncology [address] [place] [phone] Discharge Disposition: Home or Self Care 02/14/2024 2:00 PM EST - 02/14/2024 11:59 PM EST Hospital Encounter [facility] Radiation Oncology [address] [place] [phone] Wagner Estes MD Primary malignant neoplasm of female breast (CMS/HCC) (Primary Dx); Malignant neoplasm metastatic to bone (CMS/HCC); Malignant neoplasm of female breast, unspecified estrogen receptor status, unspecified laterality, unspecified site of breast (CMS/HCC); Carcinoma of breast metastatic to bone, unspecified laterality (CMS/HCC) Discharge Disposition: Home or Self Care 02/14/2024 1:00 PM EST - 02/14/2024 11:59 PM EST Hospital Encounter [facility] Radiation Oncology [address] [place] [phone] Malignant neoplasm metastatic to bone (CMS/HCC) (Primary Dx) Discharge Disposition: Home or Self Care 02/13/2024 12:09 PM EST - 02/13/2024 11:59 PM EST Hospital Encounter [facility] Radiation Oncology [address] [place] [phone] Wagner Estes MD Malignant neoplasm metastatic to bone (CMS/HCC) (Primary Dx); Primary malignant neoplasm of female breast (CMS/HCC); Carcinoma of breast metastatic to bone, unspecified laterality (CMS/HCC) Discharge Disposition: Home or Self Care 02/13/2024 12:08 PM EST - 02/13/2024 11:59 PM EST Hospital Encounter [facility] Radiation Oncology [address] [place] [phone] Discharge Disposition: Home or Self Care 02/13/2024 Telephone [facility] Radiation Oncology [address] [place] [phone] Jayne Al RN 02/12/2024 11:30 AM EST - 02/12/2024 11:59 PM EST Hospital Encounter [facility] Infusion Center [address] [place] [phone] Primary malignant neoplasm of female breast (CMS/HCC) (Primary Dx); Malignant neoplasm metastatic to bone (CMS/HCC); Body mass index (BMI) of 5th to less than 85th percentile for age in patient less than 20 years of age; Malignant neoplasm of female breast, unspecified estrogen receptor status, unspecified laterality, unspecified site of breast (CMS/HCC) Discharge Disposition: Home or Self Care 02/12/2024 Telephone [facility] Hematology Oncology [address] [place] [phone] Leonel Dsouza MD Advice Only from Last 3 Months Immunizations Name Administration Dates Next Due Influenza Quadravalent, MDCK , 0.5ml, preservative free (Flucelvax) 6mo and older 11/28/2019,12/25/2017 Influenza Quadrivalent, 0.5m l, preservative free (Fluarix; FluLaval; Fluzone) ages 6mo and older (Afluria) 3yo and older 01/29/2017 Tdap Tetanus diptheria acell ular pertussis (Boostrix; Adacel) 7yo and older 02/27/2020 Surgical History Surgery Date Site/Laterality Comments INCONTINENCE SURGERY PROCEDURE:INCONTINENCE SURGERY CYST REMOVAL PROCEDURE:CYST REMOVAL BREAST SURGERY Medical History Medical History Date Comments Breast cancer, stage 4, left (CMS/HCC) 11/05/2014 DX:Breast cancer, stage 4, l eft (HCC); COMMENT: Metastatic to bone and liver, fby [facility], Dr. Garcia Seasonal allergies DX:Seasonal a llergies Knee pain DX:Knee pain Mixed hyperlipidemia DX:Mixed hy perlipidemia Anemia DX:Anemia Polyneuropathy DX:Polyneuropath y Breast cancer (CMS/HCC) DX:Breas t cancer (HCC) Depression DX:Depression Malignant neoplasm of right breast (CMS/HCC) 09/15/2016 DX:Malignant neoplasm of rig ht breast (HCC) Metastatic cancer ([facility]/HCC) 11/05/2014 Osteoporosis Family History Medical History Relation Name Comments Heart disease Mother Dorinda Cabrera Bone cancer Paternal Grandmother Melinda Breast cancer Paternal Grandmother Melinda Relation Name Status Comments Mother Dorinda Cabrera Paternal Grandmother Melinda Social History Tobacco Use Types Packs/Day Years [...] Orientation Straight 01/23/2024 12 :58 PM EST Obstetrics History Last Filed Vital Signs Vital Sign Reading Time Taken Comments Blood Pressure 128/78 04/18/2024 11:04 AM EST Pulse 118 04/18/2024 11:04 AM EST Temperature 36.6 ??C (97.9 ??F) 04/18/2024 11:[address] Respiratory Rate 18 02/12/2024 11:40 AM EST Oxygen Saturation 98% 04/18/2024 11:04 AM EST Inhaled Oxygen Concentration - - Weight 39.9 kg (88 lb) 04/18/2024 11:04 AM EST Height 157.5 cm (5' 2 ) 02/13/2024 12:48 PM EST Body Mass Index 16.1 02/13/2024 12:48 PM EST Plan of Treatment Upcoming Encounters Date Type Department Care Team (Late st Contact Info) Description 05/12/2024 11:30 AM EST Appointment [facility] Infusion Center [address] [place] [phone] Health Maintenance Due Date Last Done Comments Breast Cancer Screening 1970 COVID-19 Vaccine (#1) 07/11/1976 Hepatitis B Vaccines (1 of 3 - 19+ 3-dose series) 07/11/1990 Pneumococcal Vaccine: 50+ Years (1 of 2 - PCV) 07/11/1990 Pneumococcal Vaccine: Pediatrics (0 to 5 Years) and At-Risk Patients (6 to 64 Years) (1 of 2 - PCV) 07/11/1990 Zoster Vaccines (1 of 2) 07/11/1990 Cervical Cancer Screening: P ap Smear 07/11/1992 Cholesterol Screening (Lipid Panel) 10/09/2023 Colorectal Cancer Screening: Colonoscopy 10/09/2023 HIV Screening 10/09/2023 Hepatitis C Screening 10/09/2023 Medicare Annual Wellness Visit 10/09/2023 Influenza Vaccine (#1) 2023 , 12/25/2017, 01/29/2017 Depression Screening 02/12/2025 02/13/2024 Social Influencers of Health Screening 02/12/2025 02/13/2024 DTaP,Tdap,and Td Vaccines (2 - Td or Tdap) 02/26/2030 02/27/2020 HIB Vaccines Aged Out No longer eligi ble based on patient's age to complete this topic HPV Vaccines Aged Out No longer eligi ble based on patient's age to complete this topic Hepatitis A Vaccines Aged Out No long er eligible based on patient's age to complete this topic IPV Vaccines Aged Out No longer eligi ble based on patient's age to complete this topic MMR Vaccines Aged Out No longer eligi ble based on patient's age to complete this topic Meningococcal ACWY Vaccine Aged Out N o longer eligible based on patient's age to complete this topic Meningococcal B Vacine Aged Out No lo nger eligible based on patient's age to complete this topic RSV Immunization Patients Under 20 months Aged Out No longer eligible b ased on patient's age to complete this topic Varicella Vaccines Aged Out No longer eligible based on patient's age to complete this topic Procedures Procedure Name Priority Date/Time Associated Diagnosis Comments MR THORACIC SPINE WO AND W CONTRAST Routine 04/02/2024 2:40 PM EST Malignant neoplasm metastatic to bone (CMS/HCC) Carcinoma of breast metastatic to bone, unspecified laterality (CMS/HCC) CBC WITH AUTO DIFFERENTIAL Routine 03/21/2024 11:59 AM EST Breast cancer, left breast (CMS/HCC) CANCER ANTIGEN 27-29 Routine 03/21/2024 11:59 AM EST Breast cancer, left breast (CMS/HCC) CBC AND DIFFERENTIAL Routine 03/21/2024 11:59 AM EST Breast cancer, left breast (CMS/HCC) COMPREHENSIVE METABOLIC PANEL Routine 03/21/2024 11:59 AM EST Breast cancer, left breast (CMS/HCC) MAGNESIUM Routine 03/21/2024 11:59 AM EST Malignant neoplasm metastatic to bone (CMS/HCC) RAD ONC MSQ TREATMENT SUMMARY Routine 02/22/2024 11:24 AM EST from Last 3 Months Results * MR Thoracic Spine wo and [...] the abdomen and pelvis is recommended. A [employer] message has been communicated to the office of [facility] Brian DSOUZA via the [employer] System on 04/02/2024 3:28 PM, Message ID [id number]. -------- FINAL REPORT -------- Dictated By: Yunier Payan Dictated Date: 04/02/2024 14:48 ET Assigned Physician: Yunier Payan Reviewed and Electronically Signed By: Yunier Payan Signed Date: 04/02/2024 15:34 ET Workstation ID: [id number] Transcribed By: Self Edit Transcribed Date: 04/02/2024 [...] liver is only partially included in the [id number] and is incompletely evaluated. There is also [...] and larger than on the comparison CT [id number]. The liver is only partially included in the [id number] and isincompletely evaluated. There is also suggestion [...] than on the remote comparison CTobtained in 2019, concerning for hepatic metastatic disease. There is alsosuggestion of new retroperitoneal lymphadenopathy. Further evaluationwith dedicated contrast- enhanced CT of the abdomen and pelvis isrecommended. A [employer] message has been communicated to the office of LEONEL DSOUZA [employer] on 04/02/2024 3:28 PM, MessageID [id number]. -------- FINAL REPORT -------- Dictated By: Yunier Payan Dictated Date: 04/02/2024 14:48 ET Assigned Physician: Yunier Payan Reviewed and Electronically Signed By: Yunier Payan Signed Date: 04/02/2024 15:34 ET Workstation ID: [id number] Transcribed By: Self Edit Transcribed Date: 04/02/2024 14:48 ET Leonel Dsouza MD IMG MRI PROCEDURES Final Res ult * (ABNORMAL) CBC auto differential (03/21/2024 11:59 AM EST) WBC 5.5 4.8 - 10.8 K/mcL LAB HEMETOLOGY METHOD 03/21/2024 1:45 PM [facility] RBC 4.00 3.80 - 4.80 M/mcL LAB HEMETOLOGY METHOD 03/21/2024 1:45 PM [facility] Hemoglobin 9.3(L) 11.5 - 16.0 g/dL LAB HEMETOLOGY METHOD 03/21/2024 1:45 PM [facility] Hematocrit 31.0(L) 35.0 - 47.0 % LAB HEMETOLOGY METHOD 03/21/2024 1:45 PM [facility] MCV 77.3(L) 79.0 - 98.0 FL LAB HEMETOLOGY METHOD 03/21/2024 1:45 PM [facility] MCH 23.2(L) 27.0 - 32.0 pcg LAB HEMETOLOGY METHOD 03/21/2024 1:45 PM [facility] MCHC 30.0(L) 32.0 - 37.0 g/dL LAB HEMETOLOGY METHOD 03/21/2024 1:45 PM [facility] RDW 15.4(H) 11.0 - 15.0 % LAB HEMETOLOGY METHOD 03/21/2024 1:45 PM [facility] Platelets 270 130 - 400 K/mcL LAB HEMETOLOGY METHOD 03/21/2024 1:45 PM [facility] MPV 9.6 7.0 - 11.0 FL LAB HEMETOLOGY METHOD 03/21/2024 1:45 PM [facility] NRBC 0.0 <1.0 % LAB HEMETOLOGY METHOD 03/21/2024 1:45 PM [facility] NRBC Absolute 0.00 <0.10 K/mcL LAB HEMETOLOGY METHOD 03/21/2024 1:45 PM [facility] Neutrophils Relative 71.7 % LAB HEMETOLOGY METHOD 03/21/2024 1:45 PM [facility] Lymphocytes Relative 17.1 % LAB HEMETOLOGY METHOD 03/21/2024 1:45 PM [facility] Monocytes Relative 8.6 % LAB HEMETOLOGY METHOD 03/21/2024 1:45 PM [facility] Eosinophils Relative 0.9 % LAB HEMETOLOGY METHOD 03/21/2024 1:45 PM [facility] Basophils Relative 1.1 % LAB HEMETOLOGY METHOD 03/21/2024 1:45 PM [facility] Immature Granulocytes Relative 0.6 % LAB HEMETOLOGY METHOD 03/21/2024 1:45 PM EST [facility] Neutrophils Absolute 3.91 1.50 - 7.00 K/mcL LAB HEMETOLOGY METHOD 03/21/2024 1:45 PM EST [facility] Lymphocytes Absolute 0.93(L) 1.00 - 5.00 K/mcL LAB HEMETOLOGY METHOD 03/21/2024 1:45 PM EST [facility] Monocytes Absolute 0.47 0.20 - 1.00 K/mcL LAB HEMETOLOGY METHOD 03/21/2024 1:45 PM EST [facility] Eosinophils Absolute 0.05 0.00 - 0.50 K/mcL LAB HEMETOLOGY METHOD 03/21/2024 1:45 PM EST [facility] Basophils Absolute 0.06 0.00 - 0.20 K/mcL LAB HEMETOLOGY METHOD 03/21/2024 1:45 PM [facility] Immature Granulocytes Absolute 0.03 0.00 - 0.03 K/[facility] LAB HEMETOLOGY METHOD 03/21/2024 1:45 PM EST [facility] Blood Venous blood specimen / Unknown Venipuncture / Unknown 03/21/2024 11:59 AM EST 03/21/2024 1:31 PM EST Leonel Dsouza MD LAB BLOOD ORDERABLES Final R esult [facility] [address] [place] [address], * (ABNORMAL) Cancer antigen 27-29 (03/21/2024 11:59 AM EST) CA 27.29 715.8(H) <38.6 U/mL 03/24/2024 12:05 PM EST [facility] Comment: The Siemens Advia Centaur [id number] Chemiluminescent Immunoassay is used. Results obtained with different assay methods or kits cannot be used interchangeably. Results cannot be interpreted as absolute evidence of the presence or absence of malignant disease. Test performed at [facility], [address] , [place], [place] ??[address] ? [phone] Tonya Multani MD, PhD - Glove Operator Blood Venous blood specimen / Unknown Venipuncture / Unknown 03/21/2024 11:59 AM EST 03/21/2024 1:32 PM EST Leonel Dsouza MD LAB BLOOD ORDERABLES Final R esult [facility] [address] [place] [address] * Magnesium (03/21/2024 11:59 AM EST) Pathologist [facility] Magnesium 2.3 1.9 - 2.6 mg/dL LAB CHEMISTRY METHOD 03/21/2024 1:56 PM EST [facility] Blood Venous blood specimen / Unknown Venipuncture / Unknown 03/21/2024 11:59 AM EST 03/21/2024 1:32 PM EST Leonel Dsouza MD LAB BLOOD ORDERABLES Final R esult Performing Organization Address City/[facility]/ZIP Co de Phone Number [facility] [address] [place] [address], [place] [phone] * (ABNORMAL) Comprehensive metabolic panel (03/21/2024 11:59 AM EST) Sodium 138 133 - 145 mmol/L LAB CHEMISTRY METHOD 03/21/2024 1:57 PM EST [facility] Potassium 3.2(L) 3.5 - 5.5 mmol/L LAB CHEMISTRY METHOD 03/21/2024 1:57 PM EST [facility] Chloride 101 96 - 110 mmol/L LAB CHEMISTRY METHOD 03/21/2024 1:57 PM EST [facility] CO2 29 21 - 32 mmol/L LAB CHEMISTRY METHOD 03/21/2024 1:57 PM [facility] Anion Gap 8 3 - 11 LAB CHEMISTRY METHOD 03/21/2024 1:57 PM [facility] Glucose 172(H) 70 - 100 mg/dL LAB CHEMISTRY METHOD 03/21/2024 1:57 PM [facility] BUN 10 5 - 25 mg/dL LAB CHEMISTRY METHOD 03/21/2024 1:57 PM [facility] Creatinine 0.98 0.50 - 1.10 mg/dL LAB CHEMISTRY METHOD 03/21/2024 1:57 PM [facility] eGFR 70 >=60 mL/min/1. 73m2 LAB CHEMISTRY METHOD 03/21/2024 1:57 PM [facility] Comment:Calculation based on the??Chronic Kidney Disease Epidemiology Collaboration (CKD-EPI) equation refit??without adjustment for race. BUN/Creatinine Ratio 10.2 LAB CHEMISTRY METHOD 03/21/2024 1:57 PM [facility] Calcium 8.5 8.5 - 10.5 mg/dL LAB CHEMISTRY METHOD 03/21/2024 1:57 PM [facility] AST (SGOT) 196(H) 10 - 42 unit/L LAB CHEMISTRY METHOD 03/21/2024 1:57 PM [facility] ALT (SGPT) 103(H) 10 - 60 unit/L LAB CHEMISTRY METHOD 03/21/2024 1:57 PM [facility] Alkaline Phosphatase 384(H) 42 - 121 unit/L LAB CHEMISTRY METHOD 03/21/2024 1:57 PM [facility] Total Protein 6.7 6.0 - 8.0 g/dL LAB CHEMISTRY METHOD 03/21/2024 1:57 PM [facility] Albumin 2.7(L) 3.2 - 5.0 g/dL LAB CHEMISTRY METHOD 03/21/2024 1:57 PM [facility] Total Bilirubin 0.5 0.0 - 1.4 mg/dL LAB CHEMISTRY METHOD 03/21/2024 1:57 PM EST [facility] Blood Venous blood specimen / Unknown Venipuncture / Unknown 03/21/2024 11:59 AM EST 03/21/2024 1:32 PM EST Leonel Dsouza MD LAB BLOOD ORDERABLES Final R esult Performing Organization Address City/[facility]/ZIP Co de Phone Number [facility] [address] [place] [address], * Rad Onc Msq Treatment Summary (02/22/2024 11:24 AM EST) Treatment Site LT hip MOSAI Q RADIATION ONCOLOGY Course Number 1 MOSAIQ RADIATION ONCOLOGY Prescribed Fractional Dose 800 cGray MOSAIQ RADIATION ONCOLOGY Prescribed Total Dose 800 cGray MOSAIQ RADIATION ONCOLOGY Actual Fractions Delivered 1 MOSAIQ RADIATION ONCOLOGY Actual Session Delivered Dose 800 cGray MOSAIQ RADIATION ONCOLOGY Actual Total Dose 800 cGray MOSAIQ RADIATION ONCOLOGY Prescribed Technique AP/PA MOSAIQ RADIATION ONCOLOGY Elapsed Days 0 MOSAIQ RADIATION ONCOLOGY Start Date 02/22/2024 MOSAIQ RADIATION ONCOLOGY Last Date 02/22/2024 MOSAIQ RADIATION ONCOLOGY Prescribed Number of Fractions 1 MOSAIQ RADIATION ONCOLOGY 02/22/2024 11:2 4 AM EST Physician Radiation Oncology RADIATION ONCOLO GY ORDERABLES Final Result Performing Organization Address City/[facility]/[place] Co de Phone Number MOSAIQ RADIATION ONCOLOGY from Last 3 Months Insurance [facility] MEDICARE ADVANTAGE on file [place] MEDIC[place] ADVANTAGE on file [place] - [place] Care Teams Experiential Therapist Relationship Specialty Start Date End Date Daisha Ji MD [address] [place] [id number] PCP - General Internal Medicine 02/13/24
--- OUTSIDE RECORDS SUMMARY | 2024-04-24 13:07 | XMS_ITS | Continuity of Care Document ---
Author Organization [facility] [employer] Address [address] [place] [address] Care Team Providers Care Director Of Vital Statistics Name Role Phone Provider MD, Test Unavailable Unavailable Allergies, Adverse Reactions, Alerts Substance Reaction Status Criticality No Known Allergies Active No Inform ation Medications Medication Instructions Dosage Effective Dates (start - stop) Status Comments oxycodone 10 mg tablet take 1 tablet by oral route every 4 - 8 hours, NTE four a day - Active For non acute pa in. Thirty day prescription morphine (bulk) 100 % powder for intrathecal use - Active Morphin e Sulfate (PF) 20mg/ML, dispense quantity 2, total volume of 40ml no refills. This is for intrathecal use .DELIVERY DATE 01/12/2023 APPT DATE 01/15/23. DELIVER TO [facility] trazodone 50 mg tablet take 1 tablet by oral route every day at bedtime 50 MG - Active everolimus (antineoplastic) 5 mg tablet take 2 tablet by oral route every day 10 MG - Active exemestane 25 mg tablet take 1 tablet by oral route every day after a meal 25 MG - Active Vitamin D 1,000 ORAL TABLET - Active gabapentin 100 mg capsule take 1 capsule by oral route 3 times every day 100 MG - Active Procedures Procedure Date Triamcinolone acet inj NOS Drain/inj Joint/bursa W/us Triamcinolone acet inj NOS Drain/inj Joint/bursa W/us OFFICE/OUTPATIENT VISIT, EST Elec Spinal Pump Refill Anlys, Phys OFFICE/OUTPATIENT VISIT, EST Triamcinolone acet inj NOS Drain/inj Joint/bursa W/us OFFICE/OUTPATIENT VISIT, EST Elec Spinal Pump Refill Anlys, Phys OFFICE/OUTPATIENT VISIT, EST Triamcinolone acet inj NOS Drain/inj Joint/bursa W/us OFFICE/OUTPATIENT VISIT, EST OFFICE/OUTPATIENT VISIT, EST Triamcinolone acet inj NOS Drain/inj Joint/bursa W/us OFFICE/OUTPATIENT VISIT, EST Elec Spinal Pump Refill Anlys, Phys OFFICE/OUTPATIENT VISIT, EST Patient Left Without Being Seen Nov- 022 Triamcinolone acet inj NOS Drain/inj Joint/bursa W/us Triamcinolone acet inj NOS Drain/inj Joint/bursa W/us OFFICE/OUTPATIENT VISIT, EST Triamcinolone acet inj NOS Major Joint Aspiration/Injection 2021 OFFICE/OUTPATIENT VISIT, EST Elec Spinal Pump Refill Anlys, Phys OFFICE/OUTPATIENT VISIT, EST Elec Spinal Pump Refill Anlys, Phys OFFICE/OUTPATIENT VISIT, EST Foll-up eval q3mo opiod tx OFFICE/OUTPATIENT VISIT, EST OFFICE/OUTPATIENT VISIT, EST OFFICE/OUTPATIENT VISIT, EST Triamcinolone acet inj NOS Drain/inj Joint/bursa W/us Triamcinolone acet inj NOS Drain/inj Joint/bursa W/us Elec Spinal Pump Refill Anlys, Phys OFFICE/OUTPATIENT VISIT, EST Foll-up eval q3mo opiod tx OFFICE/OUTPATIENT VISIT, EST Foll-up eval q3mo opiod tx Triamcinolone acet inj NOS Drain/inj Joint/bursa W/us POSTOP FOLLOW-UP VISIT OFFICE/OUTPATIENT VISIT, EST Foll-up eval q3mo opiod tx ASC Coding Pump Implant IMPLANT SPINAL CANAL CATH OFFICE/OUTPATIENT VISIT, EST Foll-up eval q3mo opiod tx DRUG TEST PRSMV CHEM ANLYZR OFFICE/OUTPATIENT VISIT, EST Foll-up eval q3mo opiod tx INJECT EPIDURAL PATCH FLUOROGUIDE FOR SPINE INJECT BRAIN CANAL SHUNT PROCEDURE NONVASCULAR SHUNT, X-RAY OFFICE/OUTPATIENT VISIT, EST Foll-up eval q3mo opiod tx OFFICE/OUTPATIENT VISIT, EST Foll-up eval q3mo opiod tx OFFICE/OUTPATIENT VISIT, EST OFFICE/OUTPATIENT VISIT, EST OFFICE/OUTPATIENT VISIT, NEW DRUG TEST PRSMV CHEM ANLYZR Advance Directives Directive Yes / No Effective Date File Name No Information Encounters Encounter Description Practice Location Reason(s) For Visit Diagnoses Date Provider Providers Copied on Encounter [facility], [address], [place], [place], [id number] , [place] [facility] No Information 4 Provider Test. . [facility], [address], [place], [place], [id number] , [place] [facility] Hip Pain (chief complaint) Bilateral primary osteoarthritis of hip 3 Tello Lopez. [address] [place] [address], [address], [place], [place], [id number], [place]. tel:[phone] OFFICE/OUTPA TIENT VISIT, EST [facility], [address], [place], [place], [id number] , [facility] Knee Pain (chief complaint) Bilateral primary osteoarthritis of kneeChronic pain syndrome 3 [facility]. [address] [place] [address], [address], [place], [place], [id number], [place]. tel:[phone] [facility], [address], [place], [place], [id number] , [facility] Cancer associated painChronic pain syndrome 3 [facility]. [address] [place] [address], [address], [place], [place], [id number], [place]. tel:[phone] [facility], [address], [place], [place], [id number] , [facility] [place] No Information 3 Inessa Hayes. [address], [place], [place], [id number], [place]. tel:[phone] OFFICE/OUTPA TIENT VISIT, EST [facility], [address], [place], [place], [id number] , [facility] [place] Shoulder Pain (chief complaint) Knee Pain (chief complaint) Encounter for therapeutic drug level monitoringBilater al primary osteoarthritis of kneeChronic pain syndromeLow back pain, unspecifiedMetast atic cancerLong term (current) use of opiate analgesicTrochant valentín bursitis, right hipTrochanteric bursitis, left hip 3 Gillian Seth. [address], [place], [address], [place]. tel:[phone] OFFICE/OUTPA TIENT VISIT, EST [facility], [address], [place], [place], [id number] , [facility] [place] Knee Pain (chief complaint) Encounter for therapeutic drug level monitoringBilater al primary osteoarthritis of kneeChronic pain syndromeLow back pain, unspecifiedMetast atic cancerLong term (current) use of opiate analgesic 3 Shaun Lynbh. [address] [place] [address], [address], [id number], . tel:[phone] [facility], [address], [place], [place], [id number] , [facility] Cancer associated painChronic pain syndrome 3 Shaun Lynbh. [address] [place] [address], [place] [address], [place], [place], [id number], [place]. tel:[phone] OFFICE/OUTPA TIENT VISIT, EST [facility], [address], [place], [place], [id number] , [facility] [place] Knee Pain (chief complaint) Shoulder Pain (chief complaint) Encounter for therapeutic drug level monitoringBilater al primary osteoarthritis of kneeChronic pain syndromeLow back pain, unspecifiedMetast atic cancer 3 Shaun Lynbh. [address] [place] [address], [id number], [place]. tel:[phone] [facility], [address], [place], [place], [id number] , [facility] Knee Pain (chief complaint) Shoulder Pain (chief complaint) Bilateral primary osteoarthritis of knee 3 Shaun Lynbh. [address] [place] [address], [id number], [place]. tel:[phone] OFFICE/OUTPA TIENT VISIT, EST [facility], [address], [place], [address] , [facility] Knee Pain (chief complaint) Shoulder Pain (chief complaint) Encounter for therapeutic drug level monitoringBilater al primary osteoarthritis of kneeChronic pain syndromeLow back pain, unspecifiedMetast atic cancerCancer associated painImpingement syndrome of shoulderTrochante dhruv bursitis, right hip 3 Suzan Diggsh. [address] [place] [address], [address], [place], [id number], . tel:[phone] OFFICE/OUTPA TIENT VISIT, EST [facility], [address], [place], [place], [id number] , [facility] Knee Pain (chief complaint) Shoulder Pain (chief complaint) Metastatic cancerCancer associated painImpingement syndrome of shoulderTrochante dhruv bursitis, right hipLow back pain, unspecifiedBilate ral primary osteoarthritis of kneeChronic pain syndromeLong term (current) use of opiate analgesicWvumedicine [facility] Hospitale r for therapeutic drug level monitoring 3 Ovalles Annika. [address] [place] [address], [address] [place] [address], [address], [place]. tel:[phone] OFFICE/OUTPA TIENT VISIT, EST [facility], [address], [place], [place], [id number] , [facility] Follow up chronic pain (chief complaint) low back pain (chief complaint) Metastatic cancerCancer associated painTrochanteric bursitis, right hipLow back pain, unspecifiedBilate ral primary osteoarthritis of kneeImpingement syndrome of shoulderChronic pain syndromeLong term (current) use of opiate analgesic 2 Shaun Tyler. [address] [place] [address], [address], [id number], [place]. tel:[phone] [facility], [address], [facility], [place], [id number] , [facility] Chronic pain syndrome 2 Shaun Tyler. [address] [place] [address], [address] [place] [address], [id number], [place]. tel:[phone] OFFICE/OUTPA TIENT VISIT, EST [facility], [address], [facility], [place], [id number] , [facility] low back pain (chief complaint) Metastatic cancerCancer associated painBilateral primary osteoarthritis of kneeImpingement syndrome of shoulderTrochante dhruv bursitis, right hipChronic pain syndromeLow back pain, unspecifiedLong term (current) use of opiate analgesic Oct-0 2 Shaun Scott. [address] [place] [address], [id number], [place]. tel:[phone] [facility], [address], [place], [place], [id number] , [facility] Hip Pain (chief complaint) Knee Pain (chief complaint) Chronic pain syndromeMetastati c cancerBilateral primary osteoarthritis of kneeCancer associated painImpingement syndrome of shoulderTrochante dhruv bursitis, right hip Sep-2 2 Shaun Scott. [address] [place] [address], [id number], [place]. tel:[phone] Referring Provider: Tyler Dunn, [address] [place] [address], [place], [address] . tel:[phone] OFFICE/OUTPA TIENT VISIT, EST [facility], [address], [place], [place], [id number] , [facility] Chronic pain syndromeMetastati c cancerBilateral primary osteoarthritis of kneeCancer associated painImpingement syndrome of shoulderTrochante dhruv bursitis, right hip Apr-2 2 Shaun Scott. [address] [place] [address], [id number], [place]. tel:[phone] Referring Provider: Tyler Dunn, [address] [place] [address], [place], [address] . tel:[phone] OFFICE/OUTPA TIENT VISIT, EST [facility], [address], [place], [place], [id number] , [facility] Hip Pain (chief complaint) Knee Pain (chief complaint) Trochanteric bursitis, right hip Apr-1 2 Jyoti Joseph. [facility], [address], [place], [facility], [place]. tel:[phone] [facility], [address], [place], [place], [id number] , [facility] Cancer associated pain May- 2 Shaun Scott. [address] [place] [address], [address], [place], [place], [address], . tel:[phone] OFFICE/OUTPA TIENT VISIT, EST [facility], [address], [place], [place], [id number] , [facility] Knee Pain (chief complaint) Metastatic cancerChronic pain syndrome May- 2 Jyoti Joseph. [address] [facility], [address], [place], [facility], [place]. tel:[phone] [facility], [address], [place], [place], [address] , [facility] Metastatic cancerChronic pain syndrome 1 Shaun Lynbh. [address] [place] [address], [address], [place], [place], [id number], [place]. tel:[phone] OFFICE/OUTPA TIENT VISIT, EST [facility], [address], [place], [place], [id number] , [facility] Chronic pain syndromeMetastati c cancerBilateral primary osteoarthritis of kneeCancer associated painImpingement syndrome of shoulder 1 Karon Duarte. [address] [place] [address], [address], [place], [address], [place]. tel:[phone] Referring Provider: Gerald Brantley, [address] [place] [address] [address], [place], [address]. tel:[phone] OFFICE/OUTPA TIENT VISIT, EST [facility], [address], [place], [id number] , [facility] Knee Pain (chief complaint) Chronic pain syndromeMetastati c cancerBilateral primary osteoarthritis of kneeCancer associated painImpingement syndrome of shoulder 1 Karon Duarte. [address] [place] [address], [address], [place], [address], [place]. tel:[phone] Referring Provider: Gerald Brantley, [address] [place] [address] [address], [place], [address]. tel:[phone] OFFICE/OUTPA TIENT VISIT, EST [facility], [address], [place], [place], [id number] , [facility] Knee Pain (chief complaint) Metastatic cancerBilateral primary osteoarthritis of kneeCancer associated painImpingement syndrome of shoulderChronic pain syndrome Dec-1 6-202 0 Shaun Tyler. [address] [place] [address], [id number], . tel:[phone] Referring Provider: Tyler Dunn, [address] [place] [address], [place], [address] . tel:[phone] OFFICE/OUTPA TIENT VISIT, EST [facility], [address], [place], [place], [id number] , [facility] joint pain (chief complaint) Metastatic cancerBilateral primary osteoarthritis of kneeCancer associated painEncounter for therapeutic drug level monitoringLong term (current) use of opiate analgesicImpingem ent syndrome of shoulder Sep-1 5-202 0 Shaun Tyler. [address] [place] [address], [id number], [place]. tel:[phone] Referring Provider: Tyler Dunn, [address] [place] [address] [address] [facility], [place], [address] . tel:[phone] [facility], [address], [place], [place], [id number] , [facility] Chronic pain syndromeCancer associated pain Sep-0 9-202 0 Shaun Tyler. [address] [place] [address], [id number], [place]. tel:[phone] OFFICE/OUTPA TIENT VISIT, EST [facility], [address], [place], [place], [id number] , [facility] Knee Pain (chief complaint) Metastatic cancerBilateral primary osteoarthritis of kneeCancer associated painChronic pain syndromeEncounter for therapeutic drug level monitoringLong term (current) use of opiate analgesic 0 Karon Duarte. [address] [place] [address], [address], [place], [address], [place]. tel:[phone] Referring Provider: Gerald Brantley, [address] [place] [address] [address], [place], [address]. tel:[phone] OFFICE/OUTPA TIENT VISIT, EST [facility], [address], [place], [id number] , [facility] Knee Pain (chief complaint) Metastatic cancerBilateral primary osteoarthritis of kneeCancer associated painChronic pain syndromeEncounter for therapeutic drug level monitoringLong term (current) use of opiate analgesic 0 Tello Jessica. [address] [place] [address], [address], [place], [place], [id number], [place]. tel:[phone] [facility], [address], [place], [place], [id number] , [facility] Knee Pain (chief complaint) Suture Removal (chief complaint) Bilateral primary osteoarthritis of kneeMetastatic cancerCancer associated painChronic pain syndromeEncounter for therapeutic drug level monitoringLong term (current) use of opiate analgesic 0 Shaun Tyler. [address] [place] [address], [address], [place], [id number], [place]. tel:[phone] OFFICE/OUTPA TIENT VISIT, EST [facility], [address], [place], [place], [id number] , [facility] Knee Pain (chief complaint) Metastatic cancerCancer associated painBilateral primary osteoarthritis of kneeChronic pain syndromeEncounter for therapeutic drug level monitoringLong term (current) use of opiate analgesic 0 Shaun Scott. [address] [place] [address], [address], [place], [place], [address], [place]. tel:[phone] Referring Provider: Tyler Dunn, [address] [place] [address] [address], [place], [address] . tel:[phone] [facility], [address], [place], [place], [id number] , [facility] Chronic pain syndromeCancer associated pain Mar- 0 Shaun Scott. [address] [place] [address], [address], [place], [place], [address], [place]. tel:[phone] OFFICE/OUTPA TIENT VISIT, EST [facility], [address], [place], [place], [id number] , [facility] low back pain (chief complaint) Knee Pain (chief complaint) Shoulder Pain (chief complaint) Hand Pain (chief complaint) Metastatic cancerCancer associated painBilateral primary osteoarthritis of kneeChronic pain syndromeEncounter for therapeutic drug level monitoringLong term (current) use of opiate analgesic Feb- 9 Tello Jessica. [address] [place] [address], [address], [place], [place], [address], . tel:[phone] Referring Provider: Jessica Javed, [address] [place] [address] [address], [place], [address] . tel:[phone] OFFICE/OUTPA TIENT VISIT, EST [facility], [address], [place], [place], [id number] , [facility] back pain (chief complaint) Metastatic cancerCancer associated painBilateral primary osteoarthritis of kneeChronic pain syndromeEncounter for therapeutic drug level monitoringLong term (current) use of opiate analgesic Jan-2 0-201 9 Tello Jessica. [address] [place] [address], [address], [place], [place], [address], . tel:[phone] Referring Provider: Jessica Javed, [address] [place] [address] [place] [address], [address] . tel:[phone] [facility], [address], [place], [id number] , [facility] Headache 9 Shaun Feldertabh. [address] [place] [address], [address], [id number], . tel:[phone] [facility], [address], [place], [place], [id number] , [facility] No Information 9 Shaun Scott. [address] [place] [address], [address] [facility], [place], [place], [id number], . tel:[phone] Referring Provider: Tyler Dunn, [address] [place] [address] [address] [facility], [place], [address] . tel:[phone] OFFICE/OUTPA TIENT VISIT, EST [facility], [address], [place], [id number] , [facility] low back pain (chief complaint) Shoulder Pain (chief complaint) Knee Pain (chief complaint) Metastatic cancerCancer associated painBilateral primary osteoarthritis of kneeChronic pain syndromeEncounter for therapeutic drug level monitoringLong term (current) use of opiate analgesic 9 Shaun Scott. [address] [place] [address], [address] [place] [address], [id number], . tel:[phone] Referring Provider: Tyler Dunn, [address] [place] [address] [address] [facility], [place], [address] . tel:[phone] OFFICE/OUTPA TIENT VISIT, EST [facility], [address], [place], [address] , [facility] Psych Eval (chief complaint) Metastatic cancerCancer associated painBilateral primary osteoarthritis of kneeChronic pain syndromeEncounter for therapeutic drug level monitoringLong term (current) use of opiate analgesic Oct-0 4201 9 Kenroy Lawrence. [address] [place] [address], [address], [place], [place], [id number], . tel:[phone] Referring Provider: Melinda Jasmine, [address] [place] [address] [address], [place], [address] . tel:[phone] OFFICE/OUTPA TIENT VISIT, [facility], [address], [place], [place], [id number] , [facility] [place] [facility] low back pain (chief complaint) Hand Pain (chief complaint) Knee Pain (chief complaint) Metastatic cancerCancer associated painBilateral primary osteoarthritis of kneeChronic pain syndromeEncounter for therapeutic drug level monitoringLong term (current) use of opiate analgesic Sep-0 6201 9 Kenroy Lawrence. [address] [place] [address], [address], [place], [place], [address], . tel:[phone] Referring Provider: Melinda Jasmine, [address] [place] [address] [address], [place], [address] . tel:[phone] OFFICE/OUTPA TIENT VISIT, [facility], [address], [place], [place], [id number] , [facility] [place] [facility] low back pain (chief complaint) Knee Pain (chief complaint) neck pain (chief complaint) Chronic pain syndromeMetastati c cancerCancer associated painLong term (current) use of opiate analgesicEncounte r for therapeutic drug level monitoringBilater al primary osteoarthritis of knee Aug-0 8201 9 Shaun Scott. [address] [place] [address], [address], [place], [place], [address], . tel:[phone] Referring Provider: Tyler Dunn, [address] [place] [address] [address], [place], [address] . tel:[phone] OFFICE/OUTPA TIENT VISIT, [facility], [address], [place], [place], [id number] , [facility] low back pain (chief complaint) neck pain (chief complaint) Knee Pain (chief complaint) Shoulder Pain (chief complaint) CancerChronic pain syndrome 201 9 Shaun Lynbh. [address] [place] [address], [address], [place], [place], [address], . tel:[phone] Referring Provider: Johann Snider , [address] [place], [address] . tel:[phone] Family History Family Member Type Diagnosis Age At Onset Brother Problem (finding) ADD/ADHD Mother Problem (finding) Family history of Osteo porosis Father Problem (finding) Alive and well Brother Problem (finding) Family history of ADD/A DHD Mother Problem (finding) Hypertension, Heart Dis ease Mother Problem (finding) Osteoporosis Payers Payer name Insurance type Covered democrat ID Authoriza tion(s) [employer] Medicare Advantage Plans [id number] Social History Type Description Quantity Date Captured Comments Alcohol Use Details Unknown Caffeine Use Details Unknown Tobacco Use Status No Information Smoking Status No Information Sex Female Chief Complaint And Reason For Visit No Information Reason For Referral Reason For Referral No Information Plan Of Treatment Date Type Action Status Referral Ordered: MRI SACRUM / COCCYX ordered Referral Ordered: MRI L-SPINE W/O CONTRAST ordered Referral Ordered: X-RAY EXAM OF SHOULDER 2V Bilateral shoulder ordered Referral Ordered: X-RAY EXAM OF KNEE, 3 RT knee ordered Referral Ordered: [facility] (related to Cancer associated pain) ordered Referral Ordered: [facility] (related to Metastatic cancer) ordered Referral Referred To: [facility] Ordered: Referrals: [facility] ordered Referral Ordered: [facility] (related to Cancer associated pain) ordered Referral Ordered: [facility] -[facility] (related to Cancer associated pain) ordered Referral Referred To: [facility] Ordered: Referrals: Psychiatry. [facility]. Consult ordered Referral Referred To: [facility] Ordered: Referrals: Psychiatry. [facility]. Consult ordered Referral Ordered: [facility] (related to Metastatic cancer) ordered Referral [facility] Ordered: Referrals: Psychiatry. [facility]. Consult ordered History Of Present Illness Encounter Date Complaint History Of Prese nt Illness Hip Pain Severity level i s severe. Duration 2 Years. The problem is showing no change. It occurs constantly. Location of pain is anterior hip, lateral hip, posterior hip. The client describes the pain as an ache and burning. Symptom is aggravated by active movement. Relieving factors include injection and [id number] medications:. Pertinent negatives include fever. Knee Pain Onset: 10 years ago. Severity level is 6. Location: knee. The pain is throbbing. The pain is aggravated by movement. Knee Pain Onset: 10 years ago. Severity level is 8. Location: bilateral knee. The pain radiates to the The pain is throbbing. The pain is aggravated by movement. The pain is relieved by pain/RX meds. Shoulder Pain Onset: 6 months ago. Location: bilateral shoulder. There is no radiation. The pain is aching. There are no aggravating factors. The pain is relieved by heat. Knee Pain Onset: 15 years ago. Severity level is 6. It occurs constantly and is fluctuating. Location: right knee. There is no radiation. The pain is throbbing. The pain is aggravated by movement. The pain is relieved by heat and pain/RX meds. Shoulder Pain Onset: 6 months ago. Location: shoulder. The pain is aching. There are no aggravating factors. The pain is relieved by heat. Knee Pain Onset: 10 years ago. Location: knee. The pain is throbbing. The pain is aggravated by movement. The pain is relieved by heat and pain/RX meds. Shoulder Pain Severity level i s moderate. It occurs constantly and is stable. Location: right shoulder. There is no radiation. The pain is throbbing. The pain is aggravated by movement. The pain is relieved by pain/RX meds. Pertinent negatives include bruising, crepitus, decreased mobility, difficulty initiating sleep, joint instability, joint tenderness, limping, locking, nocturnal awakening, nocturnal pain, numbness, popping, spasms, swelling, tingling in the arms, tingling in the legs and weakness. Knee Pain Severity level i s 5. It occurs constantly and is stable. Location: right knee. There is no radiation. The pain is throbbing. The pain is aggravated by movement. The pain is relieved by pain/RX meds. Pertinent negatives include bruising, crepitus, decreased mobility, difficulty initiating sleep, joint instability, joint tenderness, limping, locking, nocturnal awakening, nocturnal pain, numbness, popping, spasms, swelling, tingling in the arms, tingling in the legs and weakness. Shoulder Pain Severity level i s 2. It occurs intermittently and is stable. Location: right shoulder. The pain is aching. The pain is aggravated by lifting and movement. The pain is relieved by pain/RX meds and rest. Additional information: pain can get up to 8/10 as the shoulder is more actively used. Knee Pain Severity level i s 5. It occurs constantly and is stable. Location: right knee. The pain is throbbing. The pain is aggravated by movement. The pain is relieved by pain/RX meds. Additional information: max pain level 10. Knee Pain Severity level i s 8. It occurs constantly and is stable. Location: knee. There is no radiation. The pain is throbbing. The pain is aggravated by movement. The pain is relieved by pain/RX meds. Shoulder Pain Severity level i s 7. It occurs constantly and is stable. Location: right shoulder. The pain is aggravated by lifting and movement. The pain is relieved by pain/RX meds. Additional information: Patient is unsure if its from cancer or something else. Follow up chronic pain follow up visit after pump refill low back pain Severity level i s 3. The problem is stable. It occurs persistently. Location of pain is lower back. Symptoms are aggravated by daily activities. Symptoms are relieved by rest. Additional information: Patient complaints of mild pain on the right lower back. low back pain Onset: 7 years a go. Severity level is 10. The problem is stable. It occurs persistently. Location of pain is lower back.The patient describes the pain as pt is unsure. Symptoms are aggravated by anything. Symptoms are relieved by heat. Knee Pain Severity level i s 2. It occurs constantly and is stable. Location: bilateral knee. The pain is aching. The pain is aggravated by walking. The pain is relieved by pain/RX meds and rest. Hip Pain Severity level i s mild. Location of pain is bilateral. The patient describes the pain as an ache and throbbing. Symptom is aggravated by prolonged standing and standing. Relieving factors include rest and pump. Additional information: pain level is 2/10. Hip Pain Onset: 2 months ago. Severity level is moderate. The problem is showing no change. It occurs constantly. Location of pain is bilateral anterior hip, lateral hip, posterior hip. There is no radiation of pain. The patient describes the pain as discomforting, piercing and sharp. Symptom is aggravated by active movement, passive movement and standing. Denies relieving factors. Knee Pain Onset: 10 years ago. Severity level is 5. It occurs constantly and is stable. Location: right knee. There is no radiation. The pain is throbbing. The pain is aggravated by walking. There are no relieving factors. Knee Pain Onset: 6 years a go. Severity level is 8. It occurs constantly and is stable. Location: bilateral knee. The pain is aching and burning. The pain is aggravated by bending, lifting and movement. There are no relieving factors. Knee Pain Severity level i s 2. It occurs constantly and is improving. Location: bilateral knee. There is no radiation. The pain is aching. The pain is aggravated by movement, walking and standing. The pain is relieved by pain/RX meds and rest. Additional information: Patient states the handheld for her pain pump is not working and she is being seen with the rep to try and correct this. Knee Pain Severity level i s 2. It occurs constantly and is improving. Location: bilateral knee. There is no radiation. The pain is aching. The pain is aggravated by movement, walking and standing. The pain is relieved by pain/RX meds and rest. Additional information: Patient reports IT Pump to External Device Malfunction. joint pain Severity level i s 8. It occurs constantly and is stable. Location: bilateral knee. There is no radiation. The pain is aching and sharp. Context: there is no injury. The pain is aggravated by movement, walking and standing. The pain is relieved by injection and pain/RX meds. Knee Pain Severity level i s 8. It occurs constantly and is fluctuating. Location: right knee. There is no radiation. The pain is throbbing. There are no aggravating factors. The pain is relieved by pain/RX meds. Knee Pain Severity level i s 1. It occurs intermittently and is improving. Location: right knee. There is no radiation. The pain is aching. The pain is aggravated by walking. The pain is relieved by injection. Suture Removal Verbal orders re ceived by provider; read back and verified.Two patient identifiers verified, allergies verified.Surgical sites identified; one horizontal site at abdominal LUQ + one vertical site at lumbar spine, at midline. 11 surgical sutures horizontally, 8 surgical sutures vertically.Aseptic procedure followed; area cleansed with chlorhexidine swabstick.Sterile 4.5 metal Iris scissors and sterile 4.75 metal serrated Adson forceps used to remove 19 total sutures.Dry sterile dressings placed over surgical wound(s). Patient tolerated procedure well. All questions or concerns answered appropriately. Procedure completed by Mikel Kerns, #[id number] Knee Pain Severity level i s 8. It occurs constantly and is stable. Location: right knee. There is no radiation. The pain is throbbing. The pain is aggravated by movement, walking and standing. The pain is relieved by injection and pain/RX meds. Knee Pain Severity level i s 8. Location: right knee. There is no radiation. The pain is aching and throbbing. The pain is aggravated by movement, walking and standing. The pain is relieved by pain/RX meds. Knee Pain Severity level i s 8. It occurs constantly and is fluctuating. Location: bilateral knee. The pain is throbbing. The pain is aggravated by Movement. There are no relieving factors. Shoulder Pain Severity level i s 8. It occurs constantly and is fluctuating. Location: right shoulder. The pain is throbbing. The pain is aggravated by Movement. There are no relieving factors. Hand Pain Severity level i s 8. It occurs constantly and is fluctuating. Location: bilateral hand. The pain is throbbing. The pain is aggravated by Movement. There are no relieving factors. low back pain Severity level i s 8. The problem is fluctuating. It occurs persistently. Location of pain is lower back. Pain is radiated to the left foot and right foot.The patient describes the pain as throbbing. Symptoms are aggravated by Movement.The patient denies relieving factors. back pain Severity level i s 7. The problem is stable. It occurs persistently. Location of pain is lower back and right shoulder.There is no radiation of pain. The patient describes the pain as an ache and throbbing. Symptoms are aggravated by daily activities. Symptoms are relieved by pain meds/drugs. back pain (comments) Patient is 2 days s/p epidural blood patch and 1-week s/p intrathecal pump trial placement. low back pain Severity level i s 8. The problem is fluctuating. It occurs persistently. Location of pain is lower back. Pain is radiated to the left foot and right foot.The patient describes the pain as an ache, throbbing and gnawing. Symptoms are aggravated by walking.The patient denies relieving factors. Shoulder Pain Severity level i s 8. It occurs constantly and is fluctuating. Location: right shoulder. The pain is aching, throbbing and gnawing. The pain is aggravated by walking. There are no relieving factors. Knee Pain Severity level i s 9. It occurs constantly and is fluctuating. Location: bilateral knee. The pain is aching, throbbing and gnawing. The pain is aggravated by walking. There are no relieving factors. Psych Eval Patient has cristiano re back, shoulder, and knee pain. patient denies aggravating factors. The pain is constant, and has stayed the same. Patients symptoms are relived by pain meds, heat, and rest. the patient is visiting us today to go over her Psych evaluation for a pain pump placement. low back pain The problem is s table. It occurs persistently. Location of pain is lower back. Pain is radiated to the left foot and right foot.The patient describes the pain as an ache and throbbing.The patient denies aggravating factors. Symptoms are relieved by heat and pain meds/drugs. Knee Pain Severity level i s 10. It occurs constantly and is stable. Location: bilateral knee. There is no radiation. The pain is aching and throbbing. There are no aggravating factors. The pain is relieved by heat and pain/RX meds. Hand Pain Severity level i s 8. It occurs constantly and is stable. Location: bilateral hand. There is no radiation. The pain is aching and throbbing. There are no aggravating factors. The pain is relieved by heat and pain/RX meds. Knee Pain Severity level i s 10. It occurs constantly and is fluctuating. Location: bilateral knee. The pain is aching, throbbing, discomforting and gnawing. The pain is aggravated by Active Movement. The pain is relieved by pain/RX meds. neck pain The severity of the problem is moderate. The problem has not changed. The frequency of pain is constant. Location of pain is bilateral posterior neck and bilateral upper back. The patient describes the pain as Aching, Discomforting, Gnawing and Throbbing. Aggravating factors include Active Movement. Relieving factors include narcotic analgesics. low back pain Severity level i s 10. The problem is fluctuating. It occurs persistently. Location of pain is middle back and lower back. Pain is radiated to the left foot and right foot.The patient describes the pain as an ache, discomforting, gnawing and throbbing. Symptoms are aggravated by Active Movement. Symptoms are relieved by pain meds/drugs. neck pain The problem is s evere. The problem has not changed. The frequency of pain is constant. Location of pain is bilateral posterior neck. The patient describes the pain as Sharp and Throbbing. Aggravating factors include climbing stairs, lifting, changing position, daily activities, rolling over in bed and weather. Relieving factors include narcotic analgesics. low back pain Onset: 1 year ag o. Severity level is 10. It occurs persistently. Location of pain is middle back and lower back. Pain is radiated to the left foot and right foot.The patient describes the pain as sharp and throbbing. Context: no injury. Symptoms are aggravated by ascending stairs, changing positions, daily activities, descending stairs, lifting, rolling over in bed, sitting, standing, walking and weather. Symptoms are relieved by pain meds/drugs. Knee Pain Onset: 1 year ag o. Severity level is 10. It occurs constantly. Location: bilateral knee. The pain is sharp and throbbing. Context: there is no injury. The pain is aggravated by changing position, daily activities, weather and rolling over in bed. The pain is relieved by injection and pain/RX meds. Shoulder Pain Onset: 1 year ag o. Severity level is 8. It occurs constantly. Location: bilateral shoulder and Bilateral(R>L). The pain is sharp and throbbing. Context: there is no injury. The pain is aggravated by climbing (and descending) stairs, daily activities, changing position and rolling over in bed. The pain is relieved by pain/RX meds. Functional Status Date Functional Assessmen t No Information Instructions Date Instruction Additional Infor aricmode Patient has bilatera l hip pain. Previously she was symptomatic for trochanteric bursitis. Today is she is more symptomatic for hip joint pain. Will re-assess the bursitis after she has hip joint injections. The patient presents today for bilateral hip joint injections under ultrasound. The procedure was well tolerated, and there were no adverse reactions noted. Immediate relief was noted. Please see procedure note for further details. Related to Bilateral primary osteoarthritis of hip We will refill her p ain medications today.The patient has chronic, intractable pain with the diagnoses listed in the assessment. Patient was instructed not to use heavy machinery, not to drink alcohol, or use illicit substances while taking these opioid medications.Today I have discussed the options for care, including possible injections and physical therapy. The patient was advised on proper lifting techniques, home exercises and physical conditioning. Avoid heavy lifting and high impact activity. Patient was provided written material on the [facility] on Nonopioid Alternatives for the Treatment of Pain. Related to Chronic pain syndrome A right knee steroid injection under ultrasound guidance has been performed today. Ultrasound guidance has been utilized to determine needle placement. The patient tolerated the procedure well Related to Bilateral primary osteoarthritis of knee The patient risk lev el was determined by evaluating their objective and subjective individual risk factors. At today's assessment, the patient's risk factors include an evaluation of the following documented information:Level of medication in MME/Day: 60 + MS pump# UDT's per last 12 months: 1Most recent UDT: 04/25/2021 and did not show meds; however, pt was late to care and PDMP did not show she filled med the month prior. We will re-assess in the near future to ensure compliance. Opioid Risk Tool score: 1PHQ2 score: 1CAGE score: <3Based on the above results, the absence of concerning clinical observations, the fact that the patient has been stable on the medications and UDTs have been appropriate, this patient is assessed today as a risk level of: YELLOW- will need to re-assess in near future to ensure compliance. Related to Encounter for therapeutic drug level monitoring She has acute low ba ck pain at her sacrum which is making her miserable and she can hardly stand straight. I am concerned about this given her history of metastatic breast cancer. We will get expedited X-ray and MRI of the lumbar spine and see her back subsequently. Related to Low back pain, unspecified PDMP consulted. Cannon sferred care to Dr. Dunn.Refill oxycodone. The patient has chronic, intractable pain with the diagnoses listed in the assessment. Patient was instructed not to use heavy machinery, not to drink alcohol, or use illicit substances while taking these opioid medications.Today I have discussed the options for care, including possible injections and physical therapy. The patient was advised on proper lifting techniques, home exercises and physical conditioning. Avoid heavy lifting and high impact activity. Patient was provided written material on the [facility] on Nonopioid Alternatives for the Treatment of Pain. Related to Chronic pain syndrome Patient suffers from end-stage metastatic breast cancer. She currently follows with her oncologists/cancer specialists, and is on oral chemotherapy. Morphine intrathecal pump trial and feels she had 100% pain relief and felt that a morphine intrathecal pump would help with her ability to function with ADLs. She reports no side effects from the medication. Patient had spinal headaches after her trial and underwent a epidural blood patch at L2/3 on 01/27/19. She reports her headaches are now completely gone. Patient underwent an intrathecal pump placement on 03/17/19 and reported 100% pain relief. She is pleased with the results. Upon prior physical examination, the sutures are well healed with no signs of infection. We refilled her pump at the [facility] on 12/26/21. Her dose was increased to 0.8mg per day which has helped her significantly. PTM was enabled for one dose of 0.2mg in 24 hours. She is doing well, no interventions. We will see her back in 5 months to schedule the next refill.Patient returns today as her pump has been beeping for 3 weeks. She has been out of town. The pump was interrogated today and it shows a reading of 0.2ml. I talked to the mill representative and he said it would be okay to wait until tomorrow as scheduled for the refill. Patient had pump refill on 09/01/22. She is doing well and the current dosage is helping. She would like to schedule pump refill for January as she will be away in February. I will schedule today. Related to Metastatic cancer Patient was given gr eater than 72 hours of narcotic medication to control severe and intractable pain. Interventional procedures, physical therapy, and adjuvant therapy were not successful alone in controlling the patient's severe pain. Chronic opioid therapy may be controlled indefinitely and the patient will be reassessed at regular office visits. Urine drug screens will be performed in order to ensure compliance with medication prescriptions and to rule out any illicit use. The [place] prescription drug database was reviewed and is compliant with the patient's treatment plan. Related to long-term (current) use of opiate analgesic Patient presents tod john for evaluation of her chronic pain. She notes increased pain in her right knee. She is status post right knee steroid injection on 09/21/22 with greater than 75% relief. The pain is starting to return and she would like to schedule repeat right knee injection. Related to Bilateral primary osteoarthritis of knee Patient presents tod ay with increased left hip bursa pain. I will schedule patient for left hip trochanteric bursa injection. Related to Trochanteric bursitis, left hip Patient presents tod ay with increased right hip bursa pain. Right trochanteric bursa injection on 01/03/2022 with 100 % relief. This pain has returned and we will schedule right trochanteric bursa injection. Related to Trochanteric bursitis, right hip Patient was given gr eater than 72 hours of narcotic medication to control severe and intractable pain. Interventional procedures, physical therapy, and adjuvant therapy were not successful alone in controlling the patient's severe pain. Chronic opioid therapy may be controlled indefinitely and the patient will be reassessed at regular office visits. Urine drug screens will be performed in order to ensure compliance with medication prescriptions and to rule out any illicit use. The [place] prescription drug database was reviewed and is compliant with the patient's treatment plan. Related to long-term (current) use of opiate analgesic Patient suffers from end-stage metastatic breast cancer. She currently follows with her oncologists/cancer specialists, and is on oral chemotherapy. Morphine intrathecal pump trial and feels she had 100% pain relief and felt that a morphine intrathecal pump would help with her ability to function with ADLs. She reports no side effects from the medication. Patient had spinal headaches after her trial and underwent a epidural blood patch at L2/3 on 01/27/19. She reports her headaches are now completely gone. Patient underwent an intrathecal pump placement on 03/17/19 and reported 100% pain relief. She is pleased with the results. Upon prior physical examination, the sutures are well healed with no signs of infection. We refilled her pump at the [facility] on 12/26/21. Her dose was increased to 0.8mg per day which has helped her significantly. PTM was enabled for one dose of 0.2mg in 24 hours. She is doing well, no interventions. We will see her back in 5 months to schedule the next refill.Patient returns today as her pump has been beeping for 3 weeks. She has been out of town. The pump was interrogated today and it shows a reading of 0.2ml. I talked to the mill representative and he said it would be okay to wait until tomorrow as scheduled for the refill. Patient had pump refill on 09/01/22. She is doing well and the current dosage is helping. We will see her back in 5 months and set her up for a refill. Related to Metastatic cancer She has acute low ba ck pain at her sacrum which is making her miserable and she can hardly stand straight. I am concerned about this given her history of metastatic breast cancer. We will get expedited X-ray and MRI of the lumbar spine and see her back subsequently. Related to Low back pain, unspecified The patient risk lev el was determined by evaluating their objective and subjective individual risk factors. At today's assessment, the patient's risk factors include an evaluation of the following documented information:Level of medication in MME/Day: 60 + MS pump# UDT's per last 12 months: 1Most recent UDT: 04/25/2021 and did not show meds; however, pt was late to care and PDMP did not show she filled med the month prior. We will re-assess in the near future to ensure compliance. Opioid Risk Tool score: 1PHQ2 score: 1CAGE score: <3Based on the above results, the absence of concerning clinical observations, the fact that the patient has been stable on the medications and UDTs have been appropriate, this patient is assessed today as a risk level of: YELLOW- will need to re-assess in near future to ensure compliance. Related to Encounter for therapeutic drug level monitoring PDMP consulted. Cannon sferred care to Dr. Dunn.Refill oxycodone. See back in 5 months. The patient has chronic, intractable pain with the diagnoses listed in the assessment. Patient was instructed not to use heavy machinery, not to drink alcohol, or use illicit substances while taking these opioid medications.Today I have discussed the options for care, including possible injections and physical therapy. The patient was advised on proper lifting techniques, home exercises and physical conditioning. Avoid heavy lifting and high impact activity. Patient was provided written material on the [facility] on Nonopioid Alternatives for the Treatment of Pain. Related to Chronic pain syndrome Right knee intraarti cular injection on 04/08/19 with >50% relief.Right knee intraarticular steroid injection on 07/08/21.Pain has returned and ambulation is getting more difficult. Would like a repeat injection. Advised next injection we will need updated imaging. Scheduled right intraarticular jt injection, denied diabetes. A RIGHT KNEE steroid injection under ultrasound guidance has been performed today. Ultrasound guidance has been utilized to determine needle placement. The patient tolerated the procedure well Related to Bilateral primary osteoarthritis of knee She has acute low ba ck pain at her sacrum which is making her miserable and she can hardly stand straight. I am concerned about this given her history of metastatic breast cancer. We will get expedited X-ray and MRI of the lumbar spine and see her back subsequently. Related to Low back pain, unspecified Patient suffers from end-stage metastatic breast cancer. She currently follows with her oncologists/cancer specialists, and is on oral chemotherapy. Morphine intrathecal pump trial and feels she had 100% pain relief and felt that a morphine intrathecal pump would help with her ability to function with ADLs. She reports no side effects from the medication. Patient had spinal headaches after her trial and underwent a epidural blood patch at L2/3 on 01/27/19. She reports her headaches are now completely gone. Patient underwent an intrathecal pump placement on 03/17/19 and reported 100% pain relief. She is pleased with the results. Upon prior physical examination, the sutures are well healed with no signs of infection. We refilled her pump at the [facility] on 12/26/21. Her dose was increased to 0.8mg per day which has helped her significantly. PTM was enabled for one dose of 0.2mg in 24 hours. She is doing well, no interventions. We will see her back in 5 months to schedule the next refill.Patient returns today as her pump has been beeping for 3 weeks. She has been out of town. The pump was interrogated today and it shows a reading of 0.2ml. I talked to the mill representative and he said it would be okay to wait until tomorrow as scheduled for the refill. We will do the refill tomorrow and have confirmed the medication is at the surgery center. Related to Metastatic cancer Right knee intraarti cular injection on 04/08/19 with >50% relief.Right knee intraarticular steroid injection on 07/08/21.Pain has returned and ambulation is getting more difficult. Would like a repeat injection. Advised next injection we will need updated imaging. Scheduled right intraarticular jt injection, denied diabetes. We have discussed the procedure recommended today, alternatives of care, risks, rationale and possible outcomes of this procedure, and answered all the questions the patient placed today in detail. The patient understands the possible risk and outcomes, and wishes to proceed. Related to Bilateral primary osteoarthritis of knee PDMP consulted. Cannon sferred care to Dr. Dunn.Refill oxycodone. See back in 2 weeks for injection in right knee. The patient has chronic, intractable pain with the diagnoses listed in the assessment. Patient was instructed not to use heavy machinery, not to drink alcohol, or use illicit substances while taking these opioid medications.Today I have discussed the options for care, including possible injections and physical therapy. The patient was advised on proper lifting techniques, home exercises and physical conditioning. Avoid heavy lifting and high impact activity. Patient was provided written material on the [facility] on Nonopioid Alternatives for the Treatment of Pain. Related to Chronic pain syndrome The patient risk lev el was determined by evaluating their objective and subjective individual risk factors. At today's assessment, the patient's risk factors include an evaluation of the following documented information:Level of medication in MME/Day: 60 + MS pump# UDT's per last 12 months: 1Most recent UDT: 04/25/2021 and did not show meds; however, pt was late to care and PDMP did not show she filled med the month prior. We will re-assess in the near future to ensure compliance. Opioid Risk Tool score: 1PHQ2 score: 1CAGE score: <3Based on the above results, the absence of concerning clinical observations, the fact that the patient has been stable on the medications and UDTs have been appropriate, this patient is assessed today as a risk level of: YELLOW- will need to re-assess in near future to ensure compliance. Related to Encounter for therapeutic drug level monitoring Patient presents tod ay for Right knee joint steroid injection under ultrasound guidance. Patient states great relief without any complications. See procedure note for details. Will follow up at next scheduled appointment. Related to Bilateral primary osteoarthritis of knee She has acute low ba ck pain at her sacrum which is making her miserable and she can hardly stand straight. I am concerned about this given her history of metastatic breast cancer. We will get expedited X-ray and MRI of the lumbar spine and see her back subsequently. Related to Low back pain, unspecified The patient suffers from increasingly painful bilateral shoulders, with limitations in her daily activities involving reaching and using her shoulders. Clinically, this appears secondary to impingement syndrome with subacromial bursitis and positive impingement sign. No interventions at this time. Related to Impingement syndrome of shoulder Right trochanteric b ursa injection on 07/08/21.Right trochanteric bursa injection on 01/03/2022 with 100 % relief. Related to Trochanteric bursitis, right hip The patient has stag e IV terminal breast cancer with metastasis and she is currently being treated at [facility]. Most of her pain is cancer associated. She is currently undergoing oral chemotherapy and is on palliative care as she is past the stage of non-narcotic pain management. Patient underwent an intrathecal pump placement on 03/17/19. Related to Cancer associated pain PDMP consulted. Cannon sferred care to Dr. Dunn.No meds sent, she did not need a refill as she uses sparingly. She can come back to see us if she needs another refill; otherwise, follow up as scheduled for injection and MS pump refill. The patient has chronic, intractable pain with the diagnoses listed in the assessment. Patient was instructed not to use heavy machinery, not to drink alcohol, or use illicit substances while taking these opioid medications.Today I have discussed the options for care, including possible injections and physical therapy. The patient was advised on proper lifting techniques, home exercises and physical conditioning. Avoid heavy lifting and high impact activity. Patient was provided written material on the [facility] Information on Nonopioid Alternatives for the Treatment of Pain. Related to Chronic pain syndrome The patient risk lev el was determined by evaluating their objective and subjective individual risk factors. At today's assessment, the patient's risk factors include an evaluation of the following documented information:Level of medication in MME/Day: 60 + MS pump# UDT's per last 12 months: 1Most recent UDT: 04/25/2021 and did not show meds; however, pt was late to care and PDMP did not show she filled med the month prior. We will re-assess in the near future to ensure compliance. Opioid Risk Tool score: 1PHQ2 score: 1CAGE score: <3Based on the above results, the absence of concerning clinical observations, the fact that the patient has been stable on the medications and UDTs have been appropriate, this patient is assessed today as a risk level of: YELLOW- will need to re-assess in near future to ensure compliance. Related to Encounter for therapeutic drug level monitoring Patient suffers from end-stage metastatic breast cancer. She currently follows with her oncologists/cancer specialists, and is on oral chemotherapy. Morphine intrathecal pump trial and feels she had 100% pain relief and felt that a morphine intrathecal pump would help with her ability to function with ADLs. She reports no side effects from the medication. Patient had spinal headaches after her trial and underwent a epidural blood patch at L2/3 on 01/27/19. She reports her headaches are now completely gone. Patient underwent an intrathecal pump placement on 03/17/19 and reported 100% pain relief. She is pleased with the results. Upon prior physical examination, the sutures are well healed with no signs of infection. [facility]. Her dose was increased to 0.8mg per day which has helped her significantly. PTM was enabled for one dose of 0.2mg in 24 hours. She is doing well, no interventions. We will see her back in 5 months to schedule the next refill. Related to Metastatic cancer Right knee intraarti cular injection on 04/08/19 with >50% relief.Right knee intraarticular steroid injection on 07/08/21.Pain has returned and ambulation is getting more difficult. Would like a repeat injection. Advised next injection we will need updated imaging. Scheduled right intraarticular jt injection, denied diabetes. We have discussed the procedure recommended today, alternatives of care, risks, rationale and possible outcomes of this procedure, and answered all the questions the patient placed today in detail. The patient understands the possible risk and outcomes, and wishes to proceed. Related to Bilateral primary osteoarthritis of knee The patient has stag e IV terminal breast cancer with metastasis and she is currently being treated at [facility]. Most of her pain is cancer associated. She is currently undergoing oral chemotherapy and is on palliative care as she is past the stage of non-narcotic pain management. Patient underwent an intrathecal pump placement on 03/17/19. Related to Cancer associated pain We will call in anot her prescription of her Oxycodone which she uses sparingly. She can come back to see us if she needs another refill; otherwise, follow up in 6 weeks for injection and MS pump refill. The patient has chronic, intractable pain with the diagnoses listed in the assessment. Patient was instructed not to use heavy machinery, not to drink alcohol, or use illicit substances while taking these opioid medications.Today I have discussed the options for care, including possible injections and physical therapy. The patient was advised on proper lifting techniques, home exercises and physical conditioning. Avoid heavy lifting and high impact activity. Patient was provided written material on the [facility] Information on Nonopioid Alternatives for the Treatment of Pain. Related to Chronic pain syndrome She has acute low ba ck pain at her sacrum which is making her miserable and she can hardly stand straight. I am concerned about this given her history of metastatic breast cancer. We will get expedited X-ray and MRI of the lumbar spine and see her back subsequently. Related to Low back pain, unspecified The patient suffers from increasingly painful bilateral shoulders, with limitations in her daily activities involving reaching and using her shoulders. Clinically, this appears secondary to impingement syndrome with subacromial bursitis and positive impingement sign. No interventions at this time. Related to Impingement syndrome of shoulder Patient was given gr eater than 72 hours of narcotic medication to control severe and intractable pain. Interventional procedures, physical therapy and adjuvant therapy were not successful alone in controlling patient's severe pain. Chronic opioid therapy may be continued indefinitely and the patient will be reassessed at regular office visits. Urine drug screens will be performed in order to ensure compliance with medication prescriptions and to rule out any illicit use. The [place] prescription drug data base was reviewed and is compliant with the patient's treatment plan. 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 She currently follows with her oncologists/cancer specialists, and is on oral chemotherapy. Morphine intrathecal pump trial and feels she had 100% pain relief and felt that a morphine intrathecal pump would help with her ability to function with ADLs. She reports no side effects from the medication. Patient had spinal headaches after her trial and underwent a epidural blood patch at L2/3 on 01/27/19. She reports her headaches are now completely gone. Patient underwent an intrathecal pump placement on 03/17/19 and reported 100% pain relief. She is pleased with the results. Upon prior physical examination, the sutures are well healed with no signs of infection. We refilled her pump at the [facility] on 12/26/21. Her dose was increased to 0.8mg per day which has helped her significantly. PTM was enabled for one dose of 0.2mg in 24 hours. She is doing well, no interventions. We will see her back in 5 months to schedule the next refill. Related to Metastatic cancer Right knee intraarti cular injection on 04/08/19 with >50% relief.Right knee intraarticular steroid injection on 07/08/21.Pain has returned and ambulation is getting more difficult. Would like a repeat injection. Will order right intraarticular jt injection with Dr. Dunn next. Related to Bilateral primary osteoarthritis of knee Right trochanteric b ursa injection on 07/08/21.Right trochanteric bursa injection on 01/03/2022 with 100 % relief. Related to Trochanteric bursitis, right hip The patient risk lev el was determined by evaluating their objective and subjective individual risk factors. At today's assessment, the patient's risk factors include an evaluation of the following documented information:Level of medication in MME/Day: 60 + MS pump# UDT's per last 12 months: 1Most recent UDT: 02/27/19Opioid Risk Tool score: 1PHQ2 score: 1CAGE score: <3Based on the above results, the absence of concerning clinical observations, the fact that the patient has been stable on the medications and UDTs have been appropriate, this patient is assessed today as a risk level of: green Related to Encounter for therapeutic drug level monitoring The patient underwen t a right knee intraarticular injection on 04/08/19 which provided greater than 50% relief.She underwent a right knee intraarticular steroid injection on 07/08/21. Related to Bilateral primary osteoarthritis of knee Hopefully, she will not need that much pain medication after the bursa injection today. We will call in another prescription of her Oxycodone which she uses sparingly. She can come back to see us if she needs another refill; otherwise, follow up in 5 months. The patient has chronic, intractable pain with the diagnoses listed in the assessment. Patient was instructed not to use heavy machinery, not to drink alcohol, or use illicit substances while taking these opioid medications.Today I have discussed the options for care, including possible injections and physical therapy. The patient was advised on proper lifting techniques, home exercises and physical conditioning. Avoid heavy lifting and high impact activity. Patient was provided written material on the [facility] Information on Nonopioid Alternatives for the Treatment of Pain. Related to Chronic pain syndrome Patient was given gr eater than 72 hours of narcotic medication to control severe and intractable pain. Interventional procedures, physical therapy and adjuvant therapy were not successful alone in controlling patient's severe pain. Chronic opioid therapy may be continued indefinitely and the patient will be reassessed at regular office visits. Urine drug screens will be performed in order to ensure compliance with medication prescriptions and to rule out any illicit use. The [place] prescription drug data base was reviewed and is compliant with the patient's treatment plan. Related to long-term (current) use of opiate analgesic The patient suffers from increasingly painful bilateral shoulders, with limitations in her daily activities involving reaching and using her shoulders. Clinically, this appears secondary to impingement syndrome with subacromial bursitis and positive impingement sign. No interventions at this time. Related to Impingement syndrome of shoulder She underwent a righ t-sided trochanteric bursa injection on 07/08/21.Overall her pain is well controlled. The remainder of her pain is from right-sided trochanteric bursitis, which I will take care of today. We performed a right-sided trochanteric bursa injection under ultrasound guidance. Patient tolerated the procedure well. See procedure notes for details. Related to Trochanteric bursitis, right hip She has acute low ba ck pain at her sacrum which is making her miserable and she can hardly stand straight. I am concerned about this given her history of metastatic breast cancer. We will get expedited X-ray and MRI of the lumbar spine and see her back subsequently. Related to Low back pain, unspecified The patient suffers from end-stage metastatic breast cancer. She currently follows with her oncologists/cancer specialists, and is on oral chemotherapy. Patient underwent a morphine intrathecal pump trial and feels she had 100% pain relief and felt that a morphine intrathecal pump would help with her ability to function with ADLs. She reports no side effects from the medication. Patient had spinal headaches after her trial and underwent a epidural blood patch at L2/3 on 01/27/19. She reports her headaches are now completely gone. Patient underwent an intrathecal pump placement on 03/17/19 and reported 100% pain relief. She is pleased with the results. Upon prior physical examination, the sutures are well healed with no signs of infection. We refilled her pump at the [facility] on 12/26/21. Her dose was increased to 0.8mg per day which has helped her significantly. PTM was enabled for one dose of 0.2mg in 24 hours. She is doing well, no interventions. We will see her back in 5 months to schedule the next refill. Related to Metastatic cancer The patient has stag e IV terminal breast cancer with metastasis and she is currently being treated at [facility]. Most of her pain is cancer associated. She is currently undergoing oral chemotherapy and is on palliative care as she is past the stage of non-narcotic pain management. Patient underwent an intrathecal pump placement on 03/17/19. 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 Interventional procedures, physical therapy and adjuvant therapy were not successful alone in controlling patient's severe pain. Chronic opioid therapy may be continued indefinitely and the patient will be reassessed at regular office visits. Urine drug screens will be performed in order to ensure compliance with medication prescriptions and to rule out any illicit use. The [place] prescription drug data base was reviewed and is compliant with the patient's treatment plan. 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 I am concerned about this given her history of metastatic breast cancer. We will get expedited X-ray and MRI of the lumbar spine and see her back subsequently. Related to Low back pain, unspecified The patient underwen t a right knee intraarticular injection on 04/08/19 which provided greater than 50% relief.She underwent a right knee intraarticular steroid injection on 07/08/21. Related to Bilateral primary osteoarthritis of knee The patient suffers from increasingly painful bilateral shoulders, with limitations in her daily activities involving reaching and using her shoulders. Clinically, this appears secondary to impingement syndrome with subacromial bursitis and positive impingement sign. No interventions at this time. 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 Most of her pain is cancer associated. She is currently undergoing oral chemotherapy and is on palliative care as she is past the stage of non-narcotic pain management. Patient underwent an intrathecal pump placement on 03/17/19. Related to Cancer associated pain She underwent a righ t-sided trochanteric bursa injection on 07/08/21. Related to Trochanteric bursitis, right hip [place] PDMP was reviewed . We will write her up for Oxycodone 10mg up to 4 times a day. Follow up in 3 weeks.The patient has chronic, intractable pain with the diagnoses listed in the assessment. Patient was instructed not to use heavy machinery, not to drink alcohol, or use illicit substances while taking these opioid medications.Today I have discussed the options for care, including possible injections and physical therapy. The patient was advised on proper lifting techniques, home exercises and physical conditioning. Avoid heavy lifting and high impact activity. Patient was provided written material on the [facility] Information on Nonopioid Alternatives for the Treatment of Pain. Related to Chronic pain syndrome The patient suffers from end-stage metastatic breast cancer. She currently follows with her oncologists/cancer specialists, and is on oral chemotherapy. Patient underwent a morphine intrathecal pump trial and feels she had 100% pain relief and felt that a morphine intrathecal pump would help with her ability to function with ADLs. She reports no side effects from the medication. Patient had spinal headaches after her trial and underwent a epidural blood patch at L2/3 on 01/27/19. She reports her headaches are now completely gone. Patient underwent an intrathecal pump placement on 03/17/19 and reported 100% pain relief. She is pleased with the results. Upon prior physical examination, the sutures are well healed with no signs of infection. We will set her up for a pump refill at the [facility]. Related to Metastatic cancer The patient had a ri ght sided trochanteric bursa steroid injection performed blindly on 06/20/21 which only helped her a couple of days. We will repeat this injection in office today under ultrasound guidance which will hopefully provide better pain relief. Patient states great relief without any complications. See procedure note for details. Will follow up at next scheduled appointment. Related to Trochanteric bursitis, right hip The patient suffers from increasingly painful bilateral shoulders, with limitations in her daily activities involving reaching and using her shoulders. Clinically, this appears secondary to impingement syndrome with subacromial bursitis and positive impingement sign. No interventions at this time. Related to Impingement syndrome of shoulder The patient underwen t a right knee intraarticular injection on 04/08/19 which provided greater than 50% relief. Patient presents today for a right knee intraarticular steroid injection under ultrasound guidance. Patient states great relief without any complications. See procedure note for details. Will follow up at next scheduled appointment. Related to Bilateral primary osteoarthritis of knee The patient has stag e IV terminal breast cancer with metastasis and she is currently being treated at [facility]. Most of her pain is cancer associated. She is currently undergoing oral chemotherapy and is on palliative care as she is past the stage of non-narcotic pain management. Patient underwent an intrathecal pump placement on 03/17/19. Related to Cancer associated pain The patient suffers from end-stage metastatic breast cancer. She currently follows with her oncologists/cancer specialists, and is on oral chemotherapy. Patient underwent a morphine intrathecal pump trial and feels she had 100% pain relief and felt that a morphine intrathecal pump would help with her ability to function with ADLs. She reports no side effects from the medication. Patient had spinal headaches after her trial and underwent a epidural blood patch at L2/3 on 01/27/19. She reports her headaches are now completely gone. Patient underwent an intrathecal pump placement on 03/17/19 and reported 100% pain relief. She is pleased with the results. Upon prior physical examination, the sutures are well healed with no signs of infection. Pump was refilled on 06/06/21. The pump was programmed to a rate of .66mg/day which is a 10% increase from her previous dosage. She has been reminded to follow up in 5 months to schedule a medication refill. Related to Metastatic cancer Patient is not on or al narcotics. No medications called out of office today. No UDS required. Follow up in 5 months for scheduling her next pump refill. If she would like an injection before then she was advised to call us. Today I have discussed the options for care, including possible injections and physical therapy. The patient was advised on proper lifting techniques, home exercises and physical conditioning. Avoid heavy lifting and high impact activity. Patient was provided written material on the [facility] on Nonopioid Alternatives for the Treatment of Pain. Related to Chronic pain syndrome The patient had a ri ght sided trochanteric bursa steroid injection performed blindly on 06/20/21 which only helped her a couple of days. We will repeat this injection in office today under ultrasound guidance which will hopefully provide better pain relief. Patient states great relief without any complications. See procedure note for details. Will follow up at next scheduled appointment. Related to Trochanteric bursitis, right hip The patient underwen t a right knee intraarticular injection on 04/08/19 which provided greater than 50% relief. Patient presents today for a right knee intraarticular steroid injection under ultrasound guidance. Patient states great relief without any complications. See procedure note for details. Will follow up at next scheduled appointment. Related to Bilateral primary osteoarthritis of knee The patient suffers from end-stage metastatic breast cancer. She currently follows with her oncologists/cancer specialists, and is on oral chemotherapy. Patient underwent a morphine intrathecal pump trial and feels she had 100% pain relief and felt that a morphine intrathecal pump would help with her ability to function with ADLs. She reports no side effects from the medication. Patient had spinal headaches after her trial and underwent a epidural blood patch at L2/3 on 01/27/19. She reports her headaches are now completely gone. Patient underwent an intrathecal pump placement on 03/17/19 and reported 100% pain relief. She is pleased with the results. Upon prior physical examination, the sutures are well healed with no signs of infection. Pump was refilled on 06/06/21. The pump was programmed to a rate of .66mg/day which is a 10% increase from her previous dosage. She has been reminded to follow up in 5 months to schedule a medication refill. Related to Metastatic cancer The patient suffers from increasingly painful bilateral shoulders, with limitations in her daily activities involving reaching and using her shoulders. Clinically, this appears secondary to impingement syndrome with subacromial bursitis and positive impingement sign. No interventions at this time. 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 Most of her pain is cancer associated. She is currently undergoing oral chemotherapy and is on palliative care as she is past the stage of non-narcotic pain management. Patient underwent an intrathecal pump placement on 03/17/19. Related to Cancer associated pain Patient is not on or al narcotics. No medications called out of office today. No UDS required. Follow up in 5 months for scheduling her next pump refill. If she would like an injection before then she was advised to call us. Today I have discussed the options for care, including possible injections and physical therapy. The patient was advised on proper lifting techniques, home exercises and physical conditioning. Avoid heavy lifting and high impact activity. Patient was provided written material on the [facility] Information on Nonopioid Alternatives for the Treatment of Pain. Related to Chronic pain syndrome She presents for rig ht GTB injection. Tolerated the procedure well and was discharged home. See procedure note for details. Related to Trochanteric bursitis, right hip The patient suffers from end-stage metastatic breast cancer. She currently follows with her oncologists/cancer specialists, and is on oral chemotherapy. She is currently doing well with IT pump medication. Reports close to 100% relief. Will reorder morphine for her IT pump and schedule for refill at the [facility]. Related to Metastatic cancer Patient is not on or al narcotics. No medications called out of office today. No UDS required. Follow up in 2 weeks post op. Today I have discussed the options for care, including possible injections and physical therapy. The patient was advised on proper lifting techniques, home exercises and physical conditioning. Avoid heavy lifting and high impact activity. Patient was provided written material on the [facility] on Nonopioid Alternatives for the Treatment of Pain. Related to Chronic pain syndrome Patient is not on or al narcotics. No medications called out of office today. No UDS required. Follow up in 2 weeks post op. Today I have discussed the options for care, including possible injections and physical therapy. The patient was advised on proper lifting techniques, home exercises and physical conditioning. Avoid heavy lifting and high impact activity. Patient was provided written material on the [facility] on Nonopioid Alternatives for the Treatment of Pain. Related to Chronic pain syndrome The patient suffers from increasingly painful bilateral shoulders, with limitations in her daily activities involving reaching and using her shoulders. Clinically, this appears secondary to impingement syndrome with subacromial bursitis and positive impingement sign. No interventions at this time. 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 She currently follows with her oncologists/cancer specialists, and is on oral chemotherapy. Patient underwent a morphine intrathecal pump trial and feels she had 100% pain relief and felt that a morphine intrathecal pump would help with her ability to function with ADLs. She reports no side effects from the medication. Patient had spinal headaches after her trial and underwent a epidural blood patch at L2/3 on 01/27/19. She reports her headaches are now completely gone. Patient underwent an intrathecal pump placement on 03/17/19 and reported 100% pain relief. She is pleased with the results. Upon prior physical examination, the sutures are well healed with no signs of infection. Pump was refilled on 11/19/19. Interrogation was performed, reviewed with the patient, and scanned into her chart. She has 9.5ml of morphine remaining in her IT pump as of 05/11/2020 at a rate of .6mg/day with a maximum rate of .799mg/day if using the bolus feature. She is due for a pump refill at this time as it has been 5 months since previous fill and medication will need to be switched out. The pros, cons and risks of the procedure were explained and she wishes to proceed. Related to Metastatic cancer The patient underwen t a right knee intraarticular injection on 04/08/19 which provided greater than 50% relief. Stable. No interventions. Related to Bilateral primary osteoarthritis of knee The patient has stag e IV terminal breast cancer with metastasis and she is currently being treated at [facility]. Most of her pain is cancer associated. She is currently undergoing oral chemotherapy and is on palliative care as she is past the stage of non-narcotic pain management. Patient underwent an intrathecal pump placement on 03/17/19. Related to Cancer associated pain The patient has stag e IV terminal breast cancer with metastasis and she is currently being treated at [facility]. Most of her pain is cancer associated. She is currently undergoing oral chemotherapy and is on palliative care as she is past the stage of non-narcotic pain management. Patient underwent an intrathecal pump placement on 03/17/19. Related to Cancer associated pain The patient suffers from end-stage metastatic breast cancer. She currently follows with her oncologists/cancer specialists, and is on oral chemotherapy. Patient underwent a morphine intrathecal pump trial and feels she had 100% pain relief and felt that a morphine intrathecal pump would help with her ability to function with ADLs. She reports no side effects from the medication. Patient had spinal headaches after her trial and underwent a epidural blood patch at L2/3 on 01/27/19. She reports her headaches are now completely gone. Patient underwent an intrathecal pump placement on 03/17/19 and reported 100% pain relief. She is pleased with the results. Upon prior physical examination, the sutures are well healed with no signs of infection. Pump was refilled on 11/19/19. Interrogation was performed, reviewed with the patient, and scanned into her chart. She is having 0.6 mg/day, which we increased from 0.5mg previously which has improved her pain. Next Alarm is on or before 09/13/20. 03/16/2020: Patient comes back today because she feels the bolus dose has stopped working and does not know why. The pump had a feature deactivated while it was being adjusted previously. She had 10mg/ml and uses .6ml/day (.799 if she uses the bolus feature of her pump for breakthrough pain) currently and has medication until 07/31/2019 with the current pump settings. Her device rep came into the office today and her pump is working well. Will monitor. Related to Metastatic cancer The patient underwen t a right knee intraarticular injection on 04/08/19 which provided greater than 50% relief. Stable. No interventions. Related to Bilateral primary osteoarthritis of knee The patient suffers from increasingly painful bilateral shoulders, with limitations in her daily activities involving reaching and using her shoulders. Clinically, this appears secondary to impingement syndrome with subacromial bursitis and positive impingement sign. No interventions at this time. 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 No medications called out of office today. No UDS required. Follow up in [address] Dunn. Today I have discussed the options for care, including possible injections and physical therapy. The patient was advised on proper lifting techniques, home exercises and physical conditioning. Avoid heavy lifting and high impact activity. Patient was provided written material on the [facility] on Nonopioid Alternatives for the Treatment of Pain. Related to Chronic pain syndrome Patient is not on or al narcotics. No medications called out of office today. No UDS required. Related to Chronic pain syndrome The patient underwen t a right knee intraarticular injection on 04/08/19 which provided greater than 50% relief. Stable. No interventions. Related to Bilateral primary osteoarthritis of knee The patient suffers from increasingly painful bilateral shoulders, with limitations in her daily activities involving reaching and using her shoulders. Clinically, this appears secondary to impingement syndrome with subacromial bursitis and positive impingement sign. No interventions at this time. 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 Most of her pain is cancer associated. She is currently undergoing oral chemotherapy and is on palliative care as she is past the stage of non-narcotic pain management. Patient underwent an intrathecal pump placement on 03/17/19.Pump was refilled on 11/19/19 and seems to be working. Interrogation was performed , reviewed with the patient, and scanned into her chart. She is having 0.6 mg/day, which we increased from 0.5mg previously which has improved her pain. Next Alarm is on or before 09/13/20. Related to Cancer associated pain The patient suffers from end-stage metastatic breast cancer. She currently follows with her oncologists/cancer specialists, and is on oral chemotherapy. Patient underwent a morphine intrathecal pump trial and feels she had 100% pain relief and felt that a morphine intrathecal pump would help with her ability to function with ADLs. She reports no side effects from the medication. Patient had spinal headaches after her trial and underwent a epidural blood patch at L2/3 on 01/27/19. She reports her headaches are now completely gone. Patient underwent an intrathecal pump placement on 03/17/19 and reported 100% pain relief. She is pleased with the results. Upon prior physical examination, the sutures are well healed with no signs of infection. The sutures were removed at the previous visit.02/25/20: Patient comes back today because she feels the bolus dose has stopped working and does not know why. The pump appears to be functioning well otherwise. We will arrange to meet with her pain pump mill representative on March 16 for her. Related to Metastatic cancer The patient suffers from increasingly painful bilateral shoulders, with limitations in her daily activities involving reaching and using her shoulders. Clinically, this appears secondary to impingement syndrome with subacromial bursitis and positive impingement sign upon evaluation today. We discussed options for care, and have decided to order X-rays of the bilateral shoulders for further evaluation. We will also plan for bilateral subacromial bursa injections in the office under ultrasound at the time of her next visit. 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 She currently follows with her oncologists/cancer specialists, and is on oral chemotherapy. Patient underwent a morphine intrathecal pump trial and feels she had 100% pain relief and that a morphine intrathecal pump would help with her ability to function with ADLs. She reports no side effects from the medication. Patient had spinal headaches after her trial and underwent a epidural blood patch at L2/3 on 01/27/19. She reports her headaches are now completely gone. Patient underwent an intrathecal pump placement on 03/17/19 and reports 100% pain relief. She is pleased with the results. Upon prior physical examination, the sutures are well healed with no signs of infection. The sutures were removed at the previous visit. Related to Metastatic cancer Patient was given gr eater than 72 hours of narcotic medication to control severe and intractable pain. Interventional procedures, physical therapy and adjuvant therapy was not successful alone in controlling patient's severe pain. Chronic opioid therapy may be continued indefinitely and the patient will be reassessed at regular office visits. Urine drug screens will be performed in order to ensure compliance with medication prescriptions and to rule out any illicit use. The [place] prescription drug data base was reviewed and is compliant with the patient's treatment plan. 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 Most of her pain is cancer associated. She is currently undergoing oral chemotherapy and is on palliative care as she is past the stage of non-narcotic pain management. Patient underwent an intrathecal pump placement on 03/17/19.Pump was refilled on 11/19/19 and seems to be working. Interrogation was performed , reviewed with the patient, and scanned into her chart. She is having 0.6 mg/day, which we increased from 0.5mg previously which has improved her pain. Next Alarm is on or before 09/13/20. Related to Cancer associated pain The patient underwen t a right knee intraarticular injection on 04/08/19 which provided greater than 50% relief. Her symptoms are now recurrent and the patient presents today for bilateral knee intraarticular joint steroid injections under ultrasound. The procedure was well tolerated, and there were no adverse reactions noted. Please see procedure note for further details. Related to Bilateral primary osteoarthritis of knee Patient was given gr eater than 72 hours of narcotic medication to control severe and intractable pain. Interventional procedures, physical therapy and adjuvant therapy was not successful alone in controlling patient's severe pain. Chronic opioid therapy may be continued indefinitely and the patient will be reassessed at regular office visits. Urine drug screens will be performed in order to ensure compliance with medication prescriptions and to rule out any illicit use. The [place] prescription drug data base was reviewed and is compliant with the patient's treatment plan. Related to long-term (current) use of opiate analgesic The patient underwen t a right knee intraarticular injection on 04/08/19 which provided greater than 50% relief. Patient states she is symptomatic again. The patient reports symptoms that are the same prior to the injection. I believe the patient would benefit form a repeat right knee intraarticular injection. We have discussed the procedure recommended today, alternatives of care, risks, and answered all the questions the patient placed today in detail. The patient understands the possible risk, outcomes, and alternatives. Patient wishes to proceed.Patient denies history of diabetes, use of blood thinners, liver or kidney issues.Will schedule a right knee intraarticular injection. Related to Bilateral primary osteoarthritis of knee Previously, the jonathan ent presented with her mother who reports she has been exhausted lately. The patient reports that her left her in December 2018 secondary to her cancer and her not having sexual desires. I previously discussed with the patient and her mother that her health and increased stressors could be the cause of her exhaustion. I advised her to look into counseling and local support groups to see if this would assist in helping her mentally. The patient and her mother verbalized understanding at a prior visit, and will consider this as an option.Patient's oxycodone has been discontinued and her pain is managed by intrathecal pump.Patient seen with telemedicine. [place] PDMP was reviewed. Latest UDS was compliant. Will not order a UDS today but will at next in office appointment. Will renew medications. Follow up in one month. The patient reports stable pain on the current opioid medication regimen. There are no signs of adverse effects, medication abuse or evidence of diversion. The patient reports improved activity and functional levels on this medication regimen. The patient's last urine drug screen is consistent with prescribed medications. The patient has chronic, intractable pain with the diagnoses listed in the assessment. Patient was instructed not to use heavy machinery, not to drink alcohol, or use illicit substances while taking these opioid medications.Today I have discussed the options for care, including possible injections and physical therapy. The patient was advised on proper lifting techniques, home exercises and physical conditioning. Avoid heavy lifting and high impact activity. Patient was provided written material on the [facility] on Nonopioid Alternatives for the Treatment of Pain. Related to Chronic pain syndrome The patient suffers from end-stage metastatic breast cancer. She currently follows with her oncologists/cancer specialists, and is on oral chemotherapy. Patient underwent a morphine intrathecal pump trial and feels she had 100% pain relief and that a morphine intrathecal pump would help with her ability to function with ADLs. She reports no side effects from the medication. Patient had spinal headaches after her trial and underwent a epidural blood patch at L2/3 on 01/27/19. She reports her headaches are now completely gone. Patient underwent an intrathecal pump placement on 03/17/19 and reports 100% pain relief. She is pleased with the results. Upon prior physical examination, the sutures are well healed with no signs of infection. The sutures were removed at the previous visit. Related to Metastatic cancer The patient has stag e IV terminal breast cancer with metastasis and she is currently being treated at [facility]. Most of her pain is cancer associated. She is currently undergoing oral chemotherapy and is on palliative care as she is past the stage of non-narcotic pain management. Patient underwent an intrathecal pump placement on 03/17/19. Will continue to monitor. Related to Cancer associated pain The patient has stag e IV terminal breast cancer with metastasis and she is currently being treated at [facility]. Most of her pain is cancer associated. She is currently undergoing oral chemotherapy and is on palliative care as she is past the stage of non-narcotic pain management. Patient underwent an intrathecal pump placement on 03/17/19. Will continue to monitor. Related to Cancer associated pain Previously, the jonathan ent presented with her mother who reports she has been exhausted lately. The patient reports that her left her in December 2018 secondary to her cancer and her not having sexual desires. I previously discussed with the patient and her mother that her health and increased stressors could be the cause of her exhaustion. I advised her to look into counseling and local support groups to see if this would assist in helping her mentally. The patient and her mother verbalized understanding at a prior visit, and will consider this as an option.She reports that the morphine pump is very effective and she is slowly decreasing her oral medication. She is now taking her oxycodone 10mg half a tablet once a day (one full tablet a day) and this has been effective. Today, we will decrease her to oxycodone 10mg one full tablet a day. Discussed that we will discontinue the oxycodone at the next visit. Patient verbalized understanding.[place] was [place]. Latest UDS was compliant. Will not order a UDS today. Will renew medications. Follow up in one month. The patient reports stable pain on the current opioid medication regimen. There are no signs of adverse effects, medication abuse or evidence of diversion. The patient reports improved activity and functional levels on this medication regimen. The patient's last urine drug screen is consistent with prescribed medications. The patient has chronic, intractable pain with the diagnoses listed in the assessment. Patient was instructed not to use heavy machinery, not to drink alcohol, or use illicit substances while taking these opioid medications.Today I have discussed the options for care, including possible injections and physical therapy. The patient was advised on proper lifting techniques, home exercises and physical conditioning. Avoid heavy lifting and high impact activity. Patient was provided written material on the [facility] Information on Nonopioid Alternatives for the Treatment of Pain. Related to Chronic pain syndrome The patient underwen t a right knee intraarticular injection on 04/08/19 which provided greater than 50% relief. Will continue to monitor. Related to Bilateral primary osteoarthritis of knee Patient was given gr eater than 72 hours of narcotic medication to control severe and intractable pain. Interventional procedures, physical therapy and adjuvant therapy was not successful alone in controlling patient's severe pain. Chronic opioid therapy may be continued indefinitely and the patient will be reassessed at regular office visits. Urine drug screens will be performed in order to ensure compliance with medication prescriptions and to rule out any illicit use. The [place] prescription drug data base was reviewed and is compliant with the patient's treatment plan. 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 She currently follows with her oncologists/cancer specialists, and is on oral chemotherapy. Patient underwent a morphine intrathecal pump trial and feels she had 100% pain relief and that a morphine intrathecal pump would help with her ability to function with ADLs. She reports no side effects from the medication. Patient had spinal headaches after her trial and underwent a epidural blood patch at L2/3 on 01/27/19. She reports her headaches are now completely gone. Patient underwent an intrathecal pump placement on 03/17/19 and reports 100% pain relief. She is pleased with the results. Upon prior physical examination, the sutures are well healed with no signs of infection. The sutures were removed at the previous visit. Related to Metastatic cancer Previously, the jonathan ent presented with her mother who reports she has been exhausted lately. The patient reports that her left her in December 2018 secondary to her cancer and her not having sexual desires. I discussed with the patient and her mother that her health and increased stressors could be the cause of her exhaustion. I advised her to look into counseling and local support groups to see if this would assist in helping her mentally. The patient and her mother verbalized understanding, and will consider this as an option.[place]. Latest UDS was compliant. Will not order a UDS today. Will renew medications. Follow up in one week. The patient reports stable pain on the current opioid medication regimen. There are no signs of adverse effects, medication abuse or evidence of diversion. The patient reports improved activity and functional levels on this medication regimen. The patient's last urine drug screen is consistent with prescribed medications. The patient has chronic, intractable pain with the diagnoses listed in the assessment. Patient was instructed not to use heavy machinery, not to drink alcohol, or use illicit substances while taking these opioid medications.Today I have discussed the options for care, including possible injections and physical therapy. The patient was advised on proper lifting techniques, home exercises and physical conditioning. Avoid heavy lifting and high impact activity. Patient was provided written material on the [facility] on Nonopioid Alternatives for the Treatment of Pain. Related to Chronic pain syndrome The patient suffers from end-stage metastatic breast cancer. She currently follows with her oncologists/cancer specialists, and is on oral chemotherapy. Patient underwent a morphine intrathecal pump trial and feels she had 100% pain relief and that a morphine intrathecal pump would help with her ability to function with ADLs. She reports no side effects from the medication. Patient had spinal headaches after her trial and underwent a epidural blood patch at L2/3 on 01/27/19. She reports her headaches are now completely gone. Patient underwent an intrathecal pump placement on 03/17/19 and reports 100% pain relief. She is pleased with the results. Upon physical examination, the sutures are well healed with no signs of infection. We will be removing the sutures in office today. Related to Metastatic cancer The patient has stag e IV terminal breast cancer with metastasis and she is currently being treated at [facility]. Most of her pain is cancer associated. She is currently undergoing oral chemotherapy and is on palliative care as she is past the stage of non-narcotic pain management. Patient underwent an intrathecal pump placement on 03/17/19. Will continue to monitor. 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 Interventional procedures, physical therapy and adjuvant therapy was not successful alone in controlling patient's severe pain. Chronic opioid therapy may be continued indefinitely and the patient will be reassessed at regular office visits. Urine drug screens will be performed in order to ensure compliance with medication prescriptions and to rule out any illicit use. The [place] prescription drug data base was reviewed and is compliant with the patient's treatment plan. Related to long-term (current) use of opiate analgesic The patient presents today for a right knee intraarticular injection under ultrasound. The procedure was well tolerated, and there were no adverse reactions noted. Please see procedure note for further details. Related to Bilateral primary osteoarthritis of knee Patient reports she is doing well following her IT pump placement. She stopped taking the Xtampza and only takes Oxycodone as needed for her right knee pain. We will renew her oxycodone today. Previously, the patient presented with her mother who reports she has been exhausted lately. The patient reports that her left her in December 2018 secondary to her cancer and her not having sexual desires. I discussed with the patient and her mother that her health and increased stressors could be the cause of her exhaustion. I advised her to look into counseling and local support groups to see if this would assist in helping her mentally. The patient and her mother verbalized understanding, and will consider this as an option.[place]. Latest UDS was compliant. Will not order a UDS today. Will renew medications. Follow up in one week. The patient reports stable pain on the current opioid medication regimen. There are no signs of adverse effects, medication abuse or evidence of diversion. The patient reports improved activity and functional levels on this medication regimen. The patient's last urine drug screen is consistent with prescribed medications. The patient has chronic, intractable pain with the diagnoses listed in the assessment. Patient was instructed not to use heavy machinery, not to drink alcohol, or use illicit substances while taking these opioid medications.Today I have discussed the options for care, including possible injections and physical therapy. The patient was advised on proper lifting techniques, home exercises and physical conditioning. Avoid heavy lifting and high impact activity. Patient was provided written material on the [facility] on Nonopioid Alternatives for the Treatment of Pain. Related to Chronic pain syndrome Pt has significant r ight knee pain secondary to osteoarthritic degenerative changes. Clinically, she has DJD of right knee with a mild valgus deformity of the right knee and medial and lateral joint line tenderness. I believe the patient would benefit from a right knee intraarticular injection. We will order a right knee x-ray and schedule a right knee intraarticular injection. We have discussed the procedure recommended today, alternatives of care, risks, and answered all the questions the patient placed today in detail. The patient understands the possible risk and outcomes, and wishes to proceed.Will schedule a right knee intraarticular injection. Related to Bilateral primary osteoarthritis of knee Patient was given gr eater than 72 hours of narcotic medication to control severe and intractable pain. Interventional procedures, physical therapy and adjuvant therapy was not successful alone in controlling patient's severe pain. Chronic opioid therapy may be continued indefinitely and the patient will be reassessed at regular office visits. Urine drug screens will be performed in order to ensure compliance with medication prescriptions and to rule out any illicit use. The [place] prescription drug data base was reviewed and is compliant with the patient's treatment plan. 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 She currently follows with her oncologists/cancer specialists, and is on oral chemotherapy. Given the severity of her pain and her status as palliative care, we believe the patient is a good candidate for an intrathecal pain pump. Patient completed a psych evaluation with [facility] and was cleared to proceed. Patient underwent a morphine intrathecal pump trial and feels she had 100% pain relief and that a morphine intrathecal pump would help with her ability to function with ADLs. She reports no side effects from the medication. Patient had spinal headaches after her trial and underwent a epidural blood patch at L2/3 on 01/27/19. She reports her headaches are now completely gone. Patient underwent an intrathecal pump placement on 03/17/19 and reports 100% pain relief. She is pleased with the results. Upon physical examination, the sutures are healing nicely with no signs of infection. We will clean and place a fresh dressing today. As the wound is not 100% healed, we will wait one more week before we remove the stitches. Reevaluate in one week. Related to Metastatic cancer The patient has stag e IV terminal breast cancer with metastasis and she is currently being treated at [facility]. Most of her pain is cancer associated. She is currently undergoing oral chemotherapy and is on palliative care as she is past the stage of non-narcotic pain management. Patient underwent an intrathecal pump placement on 03/17/19. Related to Cancer associated pain Patient had a morphi ne pain pump placed and will need home health for wound care and dressing changes. Will order home lupe. Related to Cancer associated pain The patient suffers from end-stage metastatic breast cancer. She currently follows with her oncologists/cancer specialists, and is on oral chemotherapy. Given the severity of her pain and her status as palliative care, we believe the patient is a good candidate for an intrathecal pain pump. Patient completed a psych evaluation with [facility] and was cleared to proceed. Patient underwent a morphine intrathecal pump trial and feels she had 100% pain relief and that a morphine intrathecal pump would help with her ability to function with ADLs. She reports no side effects from the medication. Patient had spinal headaches after her trial and underwent a epidural blood patch at L2/3 on 01/27/19. She reports her headaches are now completely gone. We feel she would benefit from a Morphine intrathecal pump.We discussed in detail what an intrathecal pump entails as well as the possible risks and complications. The patient wishes to proceed with the intrathecal pump placement. She has a life expectancy of at least 6 months and over and wishes to remain active through the end. Will schedule a morphine intrathecal pump placement. We previously provided a referral for home health for daily dry dressing changes and wound inspection. She is scheduled for her intrathecal pump placement on 03/17/19. Follow up 2 weeks after she has it placed. Related to Metastatic cancer The patient presents to the clinic today with her mother who reports she has been exhausted lately. The patient reports that her left her in December 2018 secondary to her cancer and her not having sexual desires. I discussed with the patient and her mother that her health and increased stressors could be the cause of her exhaustion. I advised her to look into counseling and local support groups to see if this would assist in helping her mentally. The patient and her mother verbalized understanding, and will consider this as an option[place]. Physical exam is consistent with previous visit. Latest UDS was compliant. Will order a UDS today. Will renew medications. Follow up after intrathecal pump placement.The patient reports stable pain on the current opioid medication regimen. There are no signs of adverse effects, medication abuse or evidence of diversion. The patient reports improved activity and functional levels on this medication regimen. The patient's last urine drug screen is consistent with prescribed medications. The patient has chronic, intractable pain with the diagnoses listed in the assessment. Patient was instructed not to use heavy machinery, not to drink alcohol, or use illicit substances while taking these opioid medications.Today I have discussed the options for care, including possible injections and physical therapy. The patient was advised on proper lifting techniques, home exercises and physical conditioning. Avoid heavy lifting and high impact activity. Patient was provided written material on the [facility] Information on Nonopioid Alternatives for the Treatment of Pain. Related to Chronic pain syndrome Pt has significant B /L knee pain secondary to osteoarthritic degenerative changes. We would consider the patient for bilateral knee joint steroid injections, however she is planning to undergo IT pain pump. No interventions at this time. Related to Bilateral primary osteoarthritis of knee Patient was given gr eater than 72 hours of narcotic medication to control severe and intractable pain. Interventional procedures, physical therapy and adjuvant therapy was not successful alone in controlling patient's severe pain. Chronic opioid therapy may be continued indefinitely and the patient will be reassessed at regular office visits. Urine drug screens will be performed in order to ensure compliance with medication prescriptions and to rule out any illicit use. The [place] prescription drug data base was reviewed and is compliant with the patient's treatment plan. 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 Most of her pain is cancer associated. She is currently undergoing oral chemotherapy and is on palliative care as she is past the stage of non-narcotic pain management. Patient underwent a morphine intrathecal pump trial and feels she had much greater pain control and this would help with her ability to function with ADLs.She is scheduled for her intrathecal pump placement on 03/17/19. 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 Interventional procedures, physical therapy and adjuvant therapy was not successful alone in controlling patient's severe pain. Chronic opioid therapy may be continued indefinitely and the patient will be reassessed at regular office visits. Urine drug screens will be performed in order to ensure compliance with medication prescriptions and to rule out any illicit use. The [place] prescription drug data base was reviewed and is compliant with the patient's treatment plan. Related to long-term (current) use of opiate analgesic [place] PDMP was reviewed . Physical exam is consistent with previous visit. Latest UDS was compliant. Will not order a UDS today. Will renew medications. Follow up after intrathecal pump placement.The patient reports stable pain on the current opioid medication regimen. There are no signs of adverse effects, medication abuse or evidence of diversion. The patient reports improved activity and functional levels on this medication regimen. The patient's last urine drug screen is consistent with prescribed medications. The patient has chronic, intractable pain with the diagnoses listed in the assessment. Patient was instructed not to use heavy machinery, not to drink alcohol, or use illicit substances while taking these opioid medications.Today I have discussed the options for care, including possible injections and physical therapy. The patient was advised on proper lifting techniques, home exercises and physical conditioning. Avoid heavy lifting and high impact activity. Patient was provided written material on the [facility] on Nonopioid Alternatives for the Treatment of Pain. Related to Chronic pain syndrome Pt has significant B /L knee pain secondary to osteoarthritic degenerative changes. We would consider the patient for bilateral knee joint steroid injections, however she is planning to undergo IT pain pump. No interventions at this time. Related to Bilateral primary osteoarthritis of knee The patient suffers from end-stage metastatic breast cancer. She currently follows with her oncologists/cancer specialists, and is on oral chemotherapy. Given the severity of her pain and her status as palliative care, we believe the patient is a good candidate for an intrathecal pain pump. Patient completed a psych evaluation with [facility] and was cleared to proceed. Patient underwent a morphine intrathecal pump trial and feels she had 100% pain relief and that a morphine intrathecal pump would help with her ability to function with ADLs. She reports no side effects from the medication. Patient had spinal headaches after her trial and underwent a epidural blood patch at L2/3 on 01/27/19. She reports her headaches are now completely gone. We feel she would benefit from a Morphine intrathecal pump.We discussed in detail what an intrathecal pump entails as well as the possible risks and complications. The patient wishes to proceed with the intrathecal pump placement. She has a life expectancy of at least 6 months and over and wishes to remain active through the end. Will schedule a morphine intrathecal pump placement. Will provide a referral for home health for daily dry dressing changes and wound inspection. Follow up 2 weeks after procedure. Related to Metastatic cancer The patient has stag e IV terminal breast cancer with metastasis and she is currently being treated at [facility]. Most of her pain is cancer associated. She is currently undergoing oral chemotherapy and is on palliative care as she is past the stage of non-narcotic pain management. The patient has been informed on the option of placing an intrathecal morphine pain pump. She has considered this option, and wishes to proceed. She completed a psych eval with [facility] and was approved to proceed. Patient underwent a morphine intrathecal pump trial and feels she had much greater pain control and this would help with her ability to function with ADLs. Will schedule a intrathecal pump placement. Related to Cancer associated pain The patient suffers from end-stage metastatic breast cancer. She currently follows with her oncologists/cancer specialists, and is on oral chemotherapy at this time. Given the severity of her pain and her status as palliative care, we believe the patient is a good candidate for an intrathecal pain pump. Patient completed a psych evaluation with [facility] and was cleared to proceed. We discussed in detail what an intrathecal pump trial entails as well as the possible risks and complications. The patient wishes to proceed with the intrathecal pump trial. She has a life expectancy of at least 6 months and over and wishes to remain active through the end. Related to Metastatic cancer Patient was given gr eater than 72 hours of narcotic medication to control severe and intractable pain. Interventional procedures, physical therapy and adjuvant therapy was not successful alone in controlling patient's severe pain. Chronic opioid therapy may be continued indefinitely and the patient will be reassessed at regular office visits. Urine drug screens will be performed in order to ensure compliance with medication prescriptions and to rule out any illicit use. The [place] prescription drug data base was reviewed and is compliant with the patient's treatment plan. 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 Last UDS was compliant. Will not order a UDS today. Patient does not need a refill of her medication. Follow up after her intrathecal pump trial. The patient reports stable pain on the current opioid medication regimen. There are no signs of adverse effects, medication abuse or evidence of diversion. The patient reports improved activity and functional levels on this medication regimen. The patient's last urine drug screen is consistent with prescribed medications. The patient has chronic, intractable pain with the diagnoses listed in the assessment. Patient was instructed not to use heavy machinery, not to drink alcohol, or use illicit substances while taking these opioid medications. Today I have discussed the options for care, including possible injections and physical therapy. Patient was provided written material on the [facility] on Nonopioid Alternatives for the Treatment of Pain. Related to Chronic pain syndrome The patient has stag e IV terminal breast cancer with metastasis and she is currently being treated at [facility]. Most of her pain is cancer associated. She is currently undergoing oral chemotherapy and is on palliative care as she is past the stage of non-narcotic pain management. The Pt was informed on the option of placing an intrathecal morphine pain pump at a prior visit. She has considered this option, and wishes to proceed. She completed a psych eval with [facility] and was approved to proceed. Will have pt f/u with Dr. Dunn to discuss and schedule a IT Pain Pump trial. Related to Cancer associated pain Pt has significant B /L knee pain secondary to osteoarthritic degenerative changes. We would consider the patient for bilateral knee joint steroid injections, however she is planning to under IT Pain pump. No interventions at this time. Related to Bilateral primary osteoarthritis of knee Will be having repea t CT/PET scans later this month. [place] PDMP was [place]. Last UDS was compliant. Will not order a UDS today. Will renew medication. Follow up in 1 month.The patient reports stable pain on the current opioid medication regimen. There are no signs of adverse effects, medication abuse or evidence of diversion. The patient reports improved activity and functional levels on this medication regimen. The patient's last urine drug screen is consistent with prescribed medications. The patient has chronic, intractable pain with the diagnoses listed in the assessment. Patient was instructed not to use heavy machinery, not to drink alcohol, or use illicit substances while taking these opioid medications. Today I have discussed the options for care, including possible injections and physical therapy. Patient was provided written material on the [facility] on Nonopioid Alternatives for the Treatment of Pain. Related to Chronic pain syndrome Patient was given gr eater than 72 hours of narcotic medication to control severe and intractable pain. Interventional procedures, physical therapy and adjuvant therapy was not successful alone in controlling patient's severe pain. Chronic opioid therapy may be continued indefinitely and the patient will be reassessed at regular office visits. Urine drug screens will be performed in order to ensure compliance with medication prescriptions and to rule out any illicit use. The [place] prescription drug data base was reviewed and is compliant with the patient's treatment plan. 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 She currently follows with her oncologists/cancer specialists, and is on oral chemotherapy at this time. Given the severity of her pain and her status as palliative care, we are considering her for an Intrathecal Pain Pump. Pt completed a psych eval with [facility] and was cleared to proceed. Will have her follow up with Dr. Dunn to discuss details of the procedure and schedule IT Pain Pump trial. Related to Metastatic cancer The patient has stag e IV terminal breast cancer with metastasis and she is currently being treated at [facility] [facility] Most of her pain is cancer associated. She is currently undergoing oral chemotherapy and is on palliative care as she is past the stage of non-narcotic pain management. The Pt was informed on the option of placing an intrathecal morphine pain pump at a prior visit. She has considered this option, and wishes to proceed. She completed a psych eval with [facility] and was approved to proceed. Will have pt f/u with Dr. Dunn to discuss and schedule a IT Pain Pump trial. Related to Cancer associated pain Pt has significant B /L knee pain secondary to osteoarthritic degenerative changes. We would consider the patient for bilateral knee joint steroid injections, however she is planning to under IT Pain pump. No interventions at this time. Related to Bilateral primary osteoarthritis of knee Patient was given gr eater than 72 hours of narcotic medication to control severe and intractable pain. Interventional procedures, physical therapy and adjuvant therapy was not successful alone in controlling patient's severe pain. Chronic opioid therapy may be continued indefinitely and the patient will be reassessed at regular office visits. Urine drug screens will be performed in order to ensure compliance with medication prescriptions and to rule out any illicit use. The [place] prescription drug data base was reviewed and is compliant with the patient's treatment plan. Related to long-term (current) use of opiate analgesic The patient has stag e IV terminal breast cancer with metastasis and she is currently being treated at [facility]. Most of her pain is cancer associated. She is currently undergoing oral chemotherapy. The patient is on palliative care as she is past the stage of non narcotic pain management. I have discussed with the patient today the option of placing an intrathecal morphine pain pump. All of the patients questions were answered in detail and we have provided her with a pamphlet of information regarding the pump. The patient has considered this, and wishes to proceed. We will order a psychological evaluation for the IT Pain pump, and plan to schedule her for a IT Pain Pump Trial at the surgical center once we have reviewed the psychological report. Related to Cancer associated pain The patient suffers from end-stage metastatic breast cancer. She currently follows with her oncologists/cancer specialists, and is on oral chemotherapy at this time. Given the severity of her pain and her status as palliative care, we will consider her for an Intrathecal Pain Pump for better control of the pain. Will order Psychological evaluation and reassess. Related to Metastatic cancer A significant compon ent of the patient's chronic pain appears secondary to osteoarthritic degenerative change of the bilateral knees. We would consider the patient for bilateral knee joint steroid injections, however will hold off at this time as we are first proceeding with the workup for the Intrathecal Pain Pump. Related to Bilateral primary osteoarthritis of knee [place] PD[place] was reviewed . The patient's pain has improved after being rotated to Xtampza ER 10mg BID and Oxycodone 10mg BID. We will renew this as previously prescribed at this time. Will follow with IT Pain Pump Trial and follow up visit. We discussed the rules of prescription in detail at our pain center. A baseline drug toxicology screen was collected, as the patient establishing care with us. We will request final confirmation to be discussed with the patient at the next appointment. It will help us in deciding to prescribe, if needed, in the future for this patient. There are no current signs of misuse or abuse of opioids or other drugs. Our medical billing supervisor also spent extra time with the patient on education regarding medications, like opioidsToday I have discussed the options for care, including possible injections and physical therapy. The patient was advised on proper lifting techniques, home exercises and physical conditioning. Avoid heavy lifting and high impact activity. Patient was provided written material on the [facility] on Nonopioid Alternatives for the Treatment of Pain. Related to Chronic pain syndrome A significant compon ent of the patient's chronic pain appears secondary to osteoarthritic degenerative change of the bilateral knees. We would consider the patient for bilateral knee joint steroid injections, however will hold off at this time as we are first proceeding with the workup for the Intrathecal Pain Pump. Related to Bilateral primary osteoarthritis of knee The patient suffers from end-stage metastatic breast cancer. She currently follows with her oncologists/cancer specialists, and is on oral chemotherapy at this time. Given the severity of her pain and her status as palliative care, we will consider her for an Intrathecal Pain Pump for better control of the pain. Will order Psychological evaluation and reassess. Related to Metastatic cancer The patient has stag e IV terminal breast cancer with metastasis and she is currently being treated at [facility]. Most of her pain is cancer associated. She is currently undergoing oral chemotherapy. The patient is on palliative care as she is past the stage of non narcotic pain management. I have discussed with the patient today the option of placing an intrathecal morphine pain pump. All of the patients questions were answered in detail and we have provided her with a pamphlet of information regarding the pump. The patient has considered this, and wishes to proceed. We will order a psychological evaluation for the IT Pain pump, and plan to schedule her for a IT Pain Pump Trial at the surgical center once we have reviewed the psychological report. 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 Interventional procedures, physical therapy and adjuvant therapy was not successful alone in controlling patient's severe pain. Chronic opioid therapy may be continued indefinitely and the patient will be reassessed at regular office visits. Urine drug screens will be performed in order to ensure compliance with medication prescriptions and to rule out any illicit use. The [place] prescription drug data base was reviewed and is compliant with the patient's treatment plan. 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 The patient's pain has improved after being rotated to Xtampza ER 10mg BID and Oxycodone 10mg BID. We will renew this as previously prescribed at this time. Will follow with IT Pain Pump Trial and follow up visit. We discussed the rules of prescription in detail at our pain center. A baseline drug toxicology screen was collected, as the patient establishing care with us. We will request final confirmation to be discussed with the patient at the next appointment. It will help us in deciding to prescribe, if needed, in the future for this patient. There are no current signs of misuse or abuse of opioids or other drugs. Our medical billing supervisor also spent extra time with the patient on education regarding medications, like opioidsToday I have discussed the options for care, including possible injections and physical therapy. The patient was advised on proper lifting techniques, home exercises and physical conditioning. Avoid heavy lifting and high impact activity. Patient was provided written material on the [facility] on Nonopioid Alternatives for the Treatment of Pain. Related to Chronic pain syndrome Ms. Pierre is a 48 y ear old female who presents today with chronic knee, shoulder, and lower back pain. She states that her lower back pain is intermittent and her knee pain is worse on the right than the left. She states that her current pain medication regimen is no longer having long lasting effects for her pain. [place] PDMP was reviewed. Patient is currently taking hydrocodone 10mg TID and states that it is not effective. I have rotated her to Xtampza ER 10mg BID and Oxycodone 10mg BID to take in the interim. Will follow up in 1 month and revaluate her condition on this new medication regimen. We discussed the rules of prescription in detail at our pain center. A baseline drug toxicology screen was collected, as the patient establishing care with us. We will request final confirmation to be discussed with the patient at the next appointment. It will help us in deciding to prescribe, if needed, in the future for this patient. There are no current signs of misuse or abuse of opioids or other drugs. Our medical billing supervisor also spent extra time with the patient on education regarding medications, like opioidsToday I have discussed the options for care, including possible injections and physical therapy. The patient was advised on proper lifting techniques, home exercises and physical conditioning. Avoid heavy lifting and high impact activity. Patient was provided written material on the [facility] on Nonopioid Alternatives for the Treatment of Pain. Related to Chronic pain syndrome The patient has stag e 4 terminal breast cancer with metastasis and she is currently being treated at [facility]. Most of her pain is cancer associated. She is currently undergoing chemotherapy. The patient is on palliative care as she is past the stage of non narcotic pain management. I have discussed with the patient today the option of placing an intrathecal morphine pain pump. All of the patients questions were answered in detail and we have provided her with a pamphlet of information regarding the pump. Related to Cancer Assessments Type Assessment Date No Information Patient Care Teams Name Effective Dates (start - stop) Status Members No Information
--- OUTSIDE RECORDS SUMMARY | 2024-04-24 13:07 | XMS_ITS | Data Portability ---
Author Organization Formerly [facility] Address [address] [id number] Assessment Encounter Date Assessment Date Assessment LastModified by Organization Details LastModified Time 08/26/2020 08/26/2020 Not sleeping as well increase trazodone 100 mg take 1 to 1-1/2 nightly Repeat UA in the next 2 weeks Continue folic acid labs discussed Getting PET scan soon and following with oncology regularly reviewed notes Per patient's wishes recheck 6 months and as needed Weight stable Blood pressure stable [email or web address] Not available 08/26/2020 15:11:19 02/25/2021 02/25/2021 Patient presente d to office today for their Medicare Annual Wellness Visit. Education was provided on healthy nutrition, including a diet rich in fruits and vegetables, minimizing simple carbohydrates, salt, and saturated fats. Encouraged regular cardiovascular exercise such as walking at least 30 minutes daily, 5 times per week. Emphasized preventive health measures and educated pt on fall prevention and community-based lifestyle interventions to help reduce health risks and promote healthy living. Safe in her house Cancer in remission Has gained 3 pounds Feeling very good Pain pump working fine and no pain right now Seeing [facility] every 2 months Had left mastectomy 11/30 Received both Covid vaccinations and flu shot at [facility] Refill meds Recheck 6 months and as needed [email or web address] Not available 02/25/2021 12:39:29 05/04/2021 05/04/2021 She has had bilateral knee pain now for over 15 years. Has seen multiple clinical review specialist about this no diagnosis. Saw [facility] orthopedics here in [place] they did not even give injections as they said everything looked normal Can only walk about 5 to 10 minutes then knees started hurting much more and actually start giving out Recent sore throat No fevers Pharyngitis right otitis media give amoxicillin, PT evaluation for power scooter, bilateral knee x-rays orthopedic referral, recheck 3 months and as needed [email or web address] Not available 05/04/2021 12:59:35 Plan of Treatment Reminders Order Date Submit Date Provider Last Modified By Organization Details Last Modified Time Details Appointments None recorded. Lab rapid strep group A, throat 2021 022 [facility], [address] [place], [address], 11:42:11 urinalysis, dipstick 2020 [email or web address] [facility], [address] [place], [address], 17:34:15 culture, urine 2020 CHAMBERINO [facility], [address] [place], [address], 09:37:59 Referral physical therapist referral 2021 022 [email or web address] 1 [facility], [address] [place], [address], 2 14:01:16 orthopedic surgeon referral 2021 [email or web address], [address], [place], [address], 13:26:47 Procedures None recorded. Surgeries None recorded. Imaging XR, knee, 3 view 2021 [facility], [address] [place], [address], [place], [address], 17:43:45 Medication Orders amoxicillin 500 mg capsule 2021 022 [email or web address] 3 [id number], [address] [place] [address], [address], 2 16:01:51 methylpredn isolone 4 mg tablets in a dose pack 2021 022 [email or web address] 3 [id number], [address] [place] [address], [address], 2 16:01:59 amoxicillin 500 mg capsule 2021 022 [email or web address] 3 [id number], [address] [place] [address], [address], 2 16:01:51 trazodone 100 mg tablet 2020 021 [facility], [address] [place], [address], 10:20:25 fluoxetine 20 mg capsule 2020 021 [facility], [address] [facility], [place], [address], 1 10:20:27 folic acid 1 mg tablet 2020 021 [facility], [address] [facility], [place], [address], 1 10:20:25 letrozole 2.5 mg tablet 2020 021 [facility], [address] [facility], [place], [address], 1 10:20:25 trazodone 100 mg tablet 2020 021 [id number], [address] [place] [address] [place], [address], 15:16:45 sulfamethox azole 800 mg-trimetho prim 160 mg tablet 2020 021 [facility], [address] [place], [address], 09:49:45 Patient Targets Encounter Date Encounter Id Patient Goals Patient Target Last Modified By Organization Details Last Modified Time follow up: pt agrees to rto if no improvementpt agrees to see PCP for general health care and follow up [email or web address] Not available 08/11/2020 17:36:38 Patient agrees to consuming a healthy diet and to stay as active as possible. Patient also agrees to call if there are any problems. Not available 08/26/2020 10:39:52 Patient agrees to consuming a healthy diet and to stay as active as possible. Patient also agrees to call if there are any problems. [email or web address] Not available 02/25/2021 10:03:53 Patient agrees to consuming a healthy diet and to stay as active as possible. Patient also agrees to call if there are any problems. Not available 05/04/2021 12:35:01 Patient Instructions Encounter Date Encounter Id Patient Instructions Last Modified By Organization Details Last Modified Time 08/11/2020 [id number] antibx, push fluids, maintain hydration. rto if no improvement urine culture [email or web address] Not available 08/11/2020 17:34:54 08/26/2020 [id number] Treatment option s and plan discussed with the patient. All questions answered. Patient agrees to comply with the plan as directed and follow up as recommended. Return to the clinic as scheduled, no improvement, worsens or PRN, report to the ER with any emergencies. Patient verbalized understanding and agreement. [email or web address] Not available 08/26/2020 10:39:54 02/25/2021 [id number] Treatment option s and plan discussed with the patient. All questions answered. Patient agrees to comply with the plan as directed and follow up as recommended. Return to the clinic as scheduled, no improvement, worsens or PRN, report to the ER with any emergencies. Patient verbalized understanding and agreement. Not available 02/25/2021 10:03:54 05/04/2021 [id number] Treatment option s and plan discussed with the patient. All questions answered. Patient agrees to comply with the plan as directed and follow up as recommended. Return to the clinic as scheduled, no improvement, worsens or PRN, report to the ER with any emergencies. Patient verbalized understanding and agreement. [email or web address] Not available 05/04/2021 12:35:03 09/14/2021 [id number] strep throat: ca re instructions [email or web address] Not available 09/14/2021 11:42:11 learning about fever [email or web address] Not available 09/14/2021 11:42:11 learning about healthy weight [email or web address] Not available 09/14/2021 11:42:11 Given antibiotic s above, take as directed. Heat to area TID for 20 minutes, more if tolerated. Abx cream and dressing to area if drains or opens. OTC meds prn pain. Recheck in 3-4 days if not improving or concerns. Go to ER if severe pain or concerns- stable exam here. [email or web address] Not available 09/14/2021 16:06:26 Reason for Referral Orthopedic Surgeon Referral for Pain of bilateral knee joints Referring Physician: Cezar Powell, Internal Medicine, Encounter Date: 05/04/2021 Physical Therapist Referral for Immobility syndrome Referring Physician: Cezar Powell, Internal Medicine, Encounter Date: 05/04/2021 Results Created Date Observation Date Name Description Value Unit Range Abnormal Flag Note LastModifiedBy Organization Detail LastModifiedTime 08/12/19 21 08/14/2020 cultu re, urine urine culture, routine FINAL REPORT abnormal Not Available [facility] ([facility]) [address], [place], [address], 08/14/2020 09:37:59 08/12/19 21 08/14/2020 cultu re, urine result 1 ESCHER ICHIA COLI abnormal Great er than 100,0 00 colon y formi ng units per mL Cefaz corine <=4 ug/mL Cefaz corine with an LONG <=16 predi cts susce ptibi lity to the oral agent s cefac guevara, cefdi mihaela, cefpo doxim e, cefpr ozil, cefur oxime , cepha lexin , and lorac arbef when used for thera py of uncom plica warner urina ry tract infec tions due to E. coli, Klebs iella pneum oniae , and Prote us mirab ilis. Not Available [facility] ([facility]) [address] [facility], [place], [address], 08/14/2020 09:37:59 08/12/19 21 08/14/2020 cultu re, urine antimicrobia l susceptibili ty MIHEAD S = Susce ptibl e; I = Inter media te; R = Resis tant P = Posit larissa; N = Negat larissa MICS are expre ssed in micro grams per mL Antib iotic RSLT# 1 RSLT# 2 RSLT# 3 RSLT# 4 Amoxi cilli n/Cla vulan ic Acid S Ampic illin S Cefep consuelo S Ceftr iaxon e S Cefur oxime S Cipro floxa bruce S Ertap enem S Genta micin S Imipe nem S Levof loxac in S Merop enem S Nitro furan toin S Piper acill in/Ta zobac malik S Tetra cycli ne S Tobra mycin S Trime thopr im/Vaughan lfa S Not Available [facility] ([facility]) [address] [facility], [place], [address], 08/14/2020 09:37:59 08/12/19 21 08/11/2020 urina lysis , dipst ick Leukocytes Modera te Not Available [facility] [facility] [address] [place], [address], 08/11/2020 16:45:38 08/12/19 21 08/11/2020 urina lysis , dipst ick Nitrite negati ve Not Available [facility] [address] [place], [address], 08/11/2020 16:45:38 08/12/19 21 08/11/2020 urina lysis , dipst ick Urobilinogen .2 Not Available [place] [address] [place], [address], 08/11/2020 16:45:38 08/12/19 21 08/11/2020 urina lysis , dipst ick Protein 100 Not Available [address] [place], [address], 08/11/2020 16:45:38 08/12/19 21 08/11/2020 urina lysis , dipst ick pH 7.0 Not Available [address] [place], [address], 08/11/2020 16:45:38 08/12/19 21 08/11/2020 urina lysis , dipst ick Blood Modera te Not Available [address] [place], [address], 08/11/2020 16:45:38 08/12/19 21 08/11/2020 urina lysis , dipst ick Specific [place] 1.020 Not Available [address] [place], [address], 08/11/2020 16:45:38 08/12/19 21 08/11/2020 urina lysis , dipst ick Ketone Negati ve Not Available [address] [place], [address], 08/11/2020 16:45:38 08/12/19 21 08/11/2020 urina lysis , dipst ick Bilirubin Negati ve Not Available [facility] [address] [place], [address], 08/11/2020 16:45:38 08/12/19 21 08/11/2020 urina lysis , dipst ick Glucose Negati ve Not Available [facility] [address] [place], [address], 08/11/2020 16:45:38 08/12/19 21 08/11/2020 urina lysis , dipst ick Appearance Cloudy Not Available [facility] [address] [place], [address], 08/11/2020 16:45:38 08/12/19 21 08/11/2020 urina lysis , dipst ick Color Dark Yellow Not Available [facility] [address] [place], [address], 08/11/2020 16:45:38 08/20/19 21 08/20/2020 TSH + free T4, serum TSH 1.810 uIU/m L 0.450- 4.500 Not Available [facility] ([facility]) [address] [place], [address], 08/21/2020 08:17:42 08/20/1908/20/2020 TSH + free T4, serum T4,free(dire ct) 0.90 NG/dL 0.82-1 .77 Not Available [facility] ([facility]) [address] [facility], [place], [address], 08/21/2020 08:17:42 08/20/19 21 08/21/2020 CBC w/ auto diff WBC 1.7 x10e3 /uL 3.4-10 .8 alert low Not Available [facility] ([facility]) [address] [facility], [place], [address], 08/21/2020 08:17:44 08/20/19 21 08/21/2020 CBC w/ auto diff RBC 3.24 x10e6 /uL 3.77-5 .28 below low normal Ovalo cytes prese nt. Janet cells prese nt. Aniso cytos is prese nt. Not Available [facility] ([facility]) [address] [place], [address], 08/21/2020 08:17:44 08/20/19 21 08/21/2020 CBC w/ auto diff hemoglobin 10.8 g/dL 11.1-1 5.9 below low normal Not Available [facility] ([facility]) [address] [place], [address], 08/21/2020 08:17:44 08/20/19 21 08/21/2020 CBC w/ auto diff hematocrit 31.8 % 34.0-4 6.6 below low normal Not Available [facility] ([facility]) [address] [place], [address], 08/21/2020 08:17:44 08/20/19 21 08/21/2020 CBC w/ auto diff MCV 98 fL 79-97 above high normal Not Available [facility] ([facility]) [address] [place], [address], 08/21/2020 08:17:44 08/20/19 21 08/21/2020 CBC w/ auto diff MCH 33.3 pg 26.6-3 3.0 above high normal Not Available [facility] ([facility]) [address] [place], [address], 08/21/2020 08:17:44 08/20/19 21 08/21/2020 CBC w/ auto diff MCHC 34.0 g/dL 31.5-3 5.7 Not Available [facility] ([facility]) [address] [facility], [place], [address], 08/21/2020 08:17:44 08/20/19 21 08/21/2020 CBC w/ auto diff RDW 14.5 % 11.7-1 5.4 Not Available [facility] ([facility]) [address] [facility], [place], [address], 08/21/2020 08:17:44 08/20/19 21 08/21/2020 CBC w/ auto diff platelets 125 x10e3 /uL 150-45 0 below low normal Not Available [facility] ([facility]) [address] [facility], [place], [address], 08/21/2020 08:17:44 08/20/19 21 08/21/2020 CBC w/ auto diff neutrophils 16 % not estab. Not Available [facility] ([facility]) [address] [facility], [place], [address], 08/21/2020 08:17:44 08/20/19 21 08/21/2020 CBC w/ auto diff lymphs 68 % not estab. Not Available [facility] ([facility]) [address] [facility], [place], [address], 08/21/2020 08:17:44 08/20/19 21 08/21/2020 CBC w/ auto diff monocytes 13 % not estab. Not Available [facility] ([facility]) [address] [facility], [place], [address], 08/21/2020 08:17:44 08/20/19 21 08/21/2020 CBC w/ auto diff eos 1 % not estab. Not Available [facility] ([facility]) [address] [facility], [place], [address], 08/21/2020 08:17:44 08/20/19 21 08/21/2020 CBC w/ auto diff basos 2 % not estab. Not Available [facility] ([facility]) [address] [facility], [place], [address], 08/21/2020 08:17:44 08/20/19 21 08/21/2020 CBC w/ auto diff neutrophils (absolute) 0.3 x10e3 /uL 1.4-7. 0 panic low Not Available [facility] ([facility]) [address] [facility], [place], [address], 08/21/2020 08:17:44 08/20/19 21 08/21/2020 CBC w/ auto diff lymphs (absolute) 1.2 x10e3 /uL 0.7-3. 1 Not Available [facility] ([facility]) [address] [facility], [place], [address], 08/21/2020 08:17:44 08/20/19 21 08/21/2020 CBC w/ auto diff monocytes(ab solute) 0.2 x10e3 /uL 0.1-0. 9 Not Available [facility] ([facility]) [address] [place], [address], 08/21/2020 08:17:44 08/20/19 21 08/21/2020 CBC w/ auto diff eos (absolute) 0.0 x10e3 /uL 0.0-0. 4 Not Available [facility] ([facility]) [address] [place], [address], 08/21/2020 08:17:44 08/20/19 21 08/21/2020 CBC w/ auto diff baso (absolute) 0.0 x10e3 /uL 0.0-0. 2 Not Available [facility] ([facility]) [address] [place], [address], 08/21/2020 08:17:44 08/20/19 21 08/21/2020 CBC w/ auto diff immature granulocytes 0 % not estab. Not Available [facility] ([facility]) [address] [place], [address], 08/21/2020 08:17:44 08/20/19 21 08/21/2020 CBC w/ auto diff immature grans (abs) 0.0 x10e3 /uL 0.0-0. 1 Not Available [facility] ([facility]) [address] [facility] [place], [address], 08/21/2020 08:17:44 08/20/19 21 08/21/2020 CBC w/ auto diff hematology comments: NOTE: Verif ied by rebekah white nBrant Not Available [facility] ([facility]) [address] [facility] [place], [address], 08/21/2020 08:17:44 08/20/1908/20/2020 CMP, serum or plasm a glucose 89 mg/dL 65-99 Not Available [facility] ([facility]) [address] [place], [address], 08/21/2020 08:17:46 08/20/1908/20/2020 CMP, serum or plasm a BUN 14 mg/dL 6-24 Not Available [facility] ([facility]) [address] [place], [address], 08/21/2020 08:17:46 08/20/1908/20/2020 CMP, serum or plasm a creatinine 0.79 mg/dL 0.57-1 .00 Not Available [facility] ([facility]) [address] [place], [address], 08/21/2020 08:17:46 08/20/1908/20/2020 CMP, serum or plasm a eGFR if nonafricn AM 88 mL/mi n/1.7 3 >59 Not Available [facility] ([facility]) [address] [place], [address], 08/21/2020 08:17:46 08/20/19 21 08/20/2020 CMP, serum or plasm a eGFR if africn AM 102 mL/mi n/1.7 3 >59 Lab kimberly curre ntly repor ts eGFR in compl iance with the curre nt recom menda tions of the Natio nal Kidne y Found ation . [facility] will updat e repor ting as new guide lines are publi shed from the NKF-A SN Task force . Not Available [facility] ([facility]) [address] [place], [address], 08/21/2020 08:17:46 08/20/19 21 08/20/2020 CMP, serum or plasm a BUN/creatini ne ratio 18 9-23 Not Available [facility] ([facility]) [address] [place], [address], 08/21/2020 08:17:46 08/20/19 21 08/20/2020 CMP, serum or plasm a sodium 138 mmol/ L 134-14 4 Not Available [facility] ([facility]) [address] [place], [address], 08/21/2020 08:17:46 08/20/19 21 08/20/2020 CMP, serum or plasm a potassium 4.6 mmol/ L 3.5-5. 2 Not Available [facility] ([facility]) [address] [place], [address], 08/21/2020 08:17:46 08/20/1908/20/2020 CMP, serum or plasm a chloride 99 mmol/ L 96-106 Not Available [facility] ([facility]) [address] [place], [address], 08/21/2020 08:17:46 08/20/19 21 08/20/2020 CMP, serum or plasm a carbon dioxide, total 27 mmol/ L 20-29 Not Available [facility] ([facility]) [address] [place], [address], 08/21/2020 08:17:46 08/20/1908/20/2020 CMP, serum or plasm a calcium 9.8 mg/dL 8.7-10 .2 Not Available [facility] ([facility]) [address] [place], [address], 08/21/2020 08:17:46 08/20/1908/20/2020 CMP, serum or plasm a protein, total 7.7 g/dL 6.0-8. 5 Not Available [facility] ([facility]) [address] [place], [address], 08/21/2020 08:17:46 08/20/1908/20/2020 CMP, serum or plasm a albumin 4.6 g/dL 3.8-4. 8 Not Available [facility] ([facility]) [address] [place], [address], 08/21/2020 08:17:46 08/20/1908/20/2020 CMP, serum or plasm a globulin, total 3.1 g/dL 1.5-4. 5 Not Available [facility] ([facility]) [address] [place], [address], 08/21/2020 08:17:46 08/20/1908/20/2020 CMP, serum or plasm a A/G ratio 1.5 1.2-2. 2 Not Available [facility] ([facility]) [address] [place], [address], 08/21/2020 08:17:46 08/20/1908/20/2020 CMP, serum or plasm a bilirubin, total 0.2 mg/dL 0.0-1. 2 Not Available [facility] ([facility]) [address] [place], [address], 08/21/2020 08:17:46 08/20/1908/20/2020 CMP, serum or plasm a alkaline phosphatase 83 IU/L 48-121 Not Available [facility] ([facility]) [address] [facility] [place], [address], 08/21/2020 08:17:46 08/20/1908/20/2020 CMP, serum or plasm a AST (SGOT) 22 IU/L 0-40 Not Available [facility] ([facility]) [address] [facility] [place], [address], 08/21/2020 08:17:46 08/20/1908/20/2020 CMP, serum or plasm a ALT (SGPT) 11 IU/L 0-32 Not Available [facility] ([facility]) [address] [facility], [place], [address], 08/21/2020 08:17:46 08/20/1908/20/2020 lipid panel , serum cholesterol, total 225 mg/dL 100-19 9 above high normal Not Available [facility] ([facility]) [address] [place], [address], 08/21/2020 08:17:48 08/20/1908/20/2020 lipid panel , serum triglyceride s 79 mg/dL 0-149 Not Available [facility] ([facility]) [address] [place], [address], 08/21/2020 08:17:48 08/20/1908/20/2020 lipid panel , serum HDL cholesterol 77 mg/dL >39 Not Available [facility] ([facility]) [address] [place], [address], 08/21/2020 08:17:48 08/20/1908/20/2020 lipid panel , serum VLDL cholesterol aaron 14 mg/dL 5-40 Not Available [facility] ([facility]) [address] [place], [address], 08/21/2020 08:17:48 08/20/19 21 08/20/2020 lipid panel , serum LDL chol calc ([facility]) 134 mg/dL 0-99 above high normal Not Available [facility] ([facility]) [address] [facility], [place], [address], 08/21/2020 08:17:48 08/20/19 21 08/20/2020 vitam in B12 + folat e, serum or blood vitamin B12 >2000 pg/mL 232-12 45 above high normal Not Available [facility] ([facility]) [address] [facility], [place], [address], 08/21/2020 08:17:49 08/20/1908/21/2020 vitam in B12 + folat e, serum or blood folate (folic acid), serum <2.0 NG/mL >3.0 below low normal Maurice ified by repea t christiana sis A serum folat e pascale ntrat ion of less than 3.1 ng/mL is consi dered to repre sent clini aaron defic iency . Not Available [facility] ([facility]) [address] [facility], [place], [address], 08/21/2020 08:17:49 08/20/1908/20/2020 hepat itis C Ab, signa l-to- cutof f, serum or plasm a HCV Ab <0.1 s/co_ ratio 0.0-0. 9 Not Available [facility] ([facility]) [address] [facility], [place], [address], 08/21/2020 08:17:51 08/20/1908/20/2020 hepat itis C Ab, signa l-to- cutof f, serum or plasm a interpretati on: SPRCS Negat larissa Not infec warner with HCV, unles s recen t infec tion is suspe cted or other evide nce exist s to indic ate HCV infec tion. Not Available [facility] ([facility]) [address] [facility], [place], [address], 08/21/2020 08:17:51 08/20/19 21 08/20/2020 HbA1c (hemo globi n A1c), blood hemoglobin A1C 5.3 % 4.8-5. 6 . Predi abete s: 5.7 - 6.4 Diabe guillermina: >6.4 Glyce long contr ol for adult s with diabe guillermina: <7.0 Not Available [facility] ([facility]) [address] [facility], [place], [address], 08/21/2020 08:17:53 08/20/19 21 08/20/2020 vitam in D, 25-hy droxy , total , serum vitamin D, 25-hydroxy 38.3 NG/mL 30.0-1 00.0 Vitam in D defic iency has been defin ed by the Insti tute of Medic ine and an Endoc rine Socie ty pract ice guide line as a level of serum 25-OH vitam in D less than 20 ng/mL (1,2) . The Endoc rine Socie ty went on to furth er defin e vitam in D insuf ficie ncy as a level betwe en 21 and 29 ng/mL (2). 1. IOM (Inst itute of Medic ine). 2009. Dieta ry refer ence intak es for calci um and D. Phill tomas [place]: [facility] Press . 2. Sony winn [place], Hunter adrian [place], Lyn off-F errar i BOWEN, et al. Evalu ation , treat ment, and preve ntion of vitam in D defic iency : an Endoc rine Socie ty clini aaron pract ice guide line. JCEM. 2010; 96(7) :1911 -30. Not Available [facility] ([facility]) [address] [facility], [place], [address], 08/21/2020 08:17:54 08/20/19 21 08/20/2020 HIV 1+2 AB + HIV 1 p24 Ag, quali tativ e immun oassa y, serum HIV screen 4TH generation wrfx NON REACTI VE non reacti ve Not Available [facility] ([facility]) [address], [place], [address], 08/21/2020 08:17:56 09/15/19 22 09/14/2021 rapid strep group A, throa t Strep positi ve Not Available [facility] [address] [place], [address], 09/14/2021 10:07:07 05/12/19 22 05/06/2021 XR, knee, 3 view No observ ation record ed. BARCODE Not Available 2021 17:43:45 Result Notes None recorded. Problems Name Problem SNOMED Code Status Onset Date Resolution Date Notes Provider Name and Address Organization Details Recorded Time Upper respirato ry infection 89098540 Active 2016 Johann Snider MD [address] [place] [address] [facility] [place], [address], [facility] 7 16:00:07 Primary malignant neoplasm of female breast 45541408 Active 2016 Johann Snider MD [address] [place] [address], [address], [facility] 7 16:00:08 Pain in buttock 373062329 Active 2017 Johann Snider MD [address] [place], [place] [address], [address], [facility] 8 10:51:36 Acute pharyngit is 722684406 Completed 201708/11/2020 Nat Mercado APRN [address] [place], [place] [address], [address], [facility] 1 17:31:08 Herpes simplex 95199724 Active 2017 Johann Snider MD [address] [place], [place] [address], [place], [address], [facility] 8 10:23:42 Metastati c malignant neoplasm to bone 82789205 Active 2019 HERNAN MUNOZ [address], [place], [place], [address] [place] [address], [facility] 0 15:59:20 Chronic pain syndrome 973147826 Active 2019 HERNAN MUNOZ [address], [place], [address] [place] [address], [facility] 0 15:59:23 Kidney stone 21436869 Active 2019 HERNAN MUNOZ [address], [place], [place], [address] [place] [address], [facility] 0 15:59:28 Acute urinary tract infection 967936822 Active 2020 Nat Mercado [address], [place] [address], [place], [address] [place] [address], [facility] 1 17:33:24 Body mass index less than 20 981482083 Active 2020 Nat Mercado [address], [facility] [address], [place], [address] [place] [address], [facility] 1 17:36:20 Fever 340864062 Active 2021 BHAVESH MAHARAJ [address], [place] [address], [place], [address] [place] [address], [facility] 2 11:35:27 Streptoco ccal sore throat 29097593 Active 2021 BHAVESH MAHARAJ [address], [place] [address], [place], [address] [place] [address], [facility] 2 11:35:58 Problem Notes None recorded. Procedures Surgical History Date Name Laterality Status Provider Name and Address Organization Details Recorded Time 09/15/19 22 HEDIS- MEDICATION LIST DOCU IN MED REC - 1159F completed Joseline Perrin [facility] 09/14/2021 10:04:50 09/15/19 22 HEDIS Pain - AWV - Pain Present Severity Quantified - 1125F completed Joseline Perrin [facility] 09/14/2021 10:04:54 09/15/19 22 HEDIS - AWV - Blood Pressure < 130 Systolic - 3074f completed Joseline Perrin [facility] 09/14/2021 10:06:46 09/15/19 22 HEDIS - AWV - Blood Pressure < 80 Diastolic - 3078f completed Joseline Perrin [facility] 09/14/2021 10:06:48 09/15/19 22 HEDIS - BMI Low Must Have Plan of Care - G8414 completed Joseline Perrin [facility] 09/14/2021 10:05:07 09/15/19 22 HEDIS Tobacco Screening Negative for Smoking - 1036F completed Joseline Perrin [facility] 10:04:52 05/04/19 22 HEDIS - REVIEW OF MEDICATION DOCU IN MED REC - Medicare - G8427 completed Cezar Powell Jr, DO [address] [place] [address], [place] [address], [place], [address] 05/04/2021 12:35:22 05/04/19 22 HEDIS- MEDICATION LIST DOCU IN MED REC - 1159F completed [facility] 05/04/2021 12:19:09 05/04/19 22 HEDIS - AWV - PHQ9 Discussion Mental Health Issues / Depression Negative - G8510 [facility] 05/04/2021 12:19:06 05/04/19 22 HEDIS Pain - AWV - Pain Present Severity Quantified - 1125F [facility] 05/04/2021 12:19:35 05/04/19 22 HEDIS - AWV - Blood Pressure < 130 Systolic - 3074f [facility] 05/04/2021 12:19:26 05/04/19 22 HEDIS - AWV - Blood Pressure < 80 Diastolic - 3078f [facility] 05/04/2021 12:19:21 05/04/19 22 HEDIS - HEDIS - ADVANCED CARE PLAN DISCUSSED AND DOCU IN MED REC- PT NAMED CARE PLAN OR SURROGATE ? 66 YRS - 1123F completed Cezar Powell Jr, DO [address] [facility], [address], [place], [address], [facility] 05/04/2021 12:35:22 05/04/19 22 HEDIS - AWV - ADVANCED DIRECTIVE DISCUSSED & DOCUMENTED IN MED REC ? 66 YRS - 1158F completed [facility] 05/04/2021 12:19:11 05/04/19 22 HEDIS Tobacco Screening Negative for Smoking - 1036F [facility] 05/04/2021 12:19:13 05/04/19 22 HEDIS - AWV - REVIEW OF MEDICATION DOCU IN MED REC -1160F completed Cezar Powell Jr, DO [address] [facility] [address], [address], [place], [address], [facility] 05/04/2021 12:35:22 05/04/19 22 HEDIS - BMI WITHIN NORMAL PARAMETERS - G8420 completed Cezar Powell Jr, DO [address] [facility] [address], [address], [place], [address], [facility] 05/04/2021 12:35:22 02/26/20 21 HEDIS - REVIEW OF MEDICATION DOCU IN MED REC - Medicare - G8427 [facility] 02/25/2021 09:37:43 02/26/20 21 HEDIS- MEDICATION LIST DOCU IN MED REC - 1159F [facility] 02/25/2021 09:37:43 02/26/20 21 HEDIS - AWV - Pain - No Pain Present - 1126f [facility] 02/25/2021 09:37:43 02/26/20 21 HEDIS - AWV - Blood Pressure < 130 Systolic - 3074f [facility] 02/25/2021 09:46:42 02/26/20 21 HEDIS - AWV - Blood Pressure < 80 Diastolic - 3078f [facility] 02/25/2021 09:46:45 02/26/20 21 HEDIS - HEDIS - ADVANCED CARE PLAN DISCUSSED AND DOCU IN MED REC- PT NAMED CARE PLAN OR SURROGATE ? 66 YRS - 1123F completed Cezar Powell Jr, DO [address] [facility], [address], [place], [address], [facility] 02/25/2021 10:04:15 02/26/20 21 HEDIS - AWV - ADVANCED DIRECTIVE DISCUSSED & DOCUMENTED IN MED REC ? 66 YRS - 1158F completed [facility] 02/25/2021 09:46:29 02/26/20 21 HEDIS Tobacco Screening Negative for Smoking - 1036F [facility] 02/25/2021 09:46:18 02/26/20 21 HEDIS - AWV - REVIEW OF MEDICATION DOCU IN MED REC -1160F [facility] 02/25/2021 09:37:43 02/26/20 21 HEDIS - BMI WITHIN NORMAL PARAMETERS - G8420 completed Cezar Powell Jr, DO [address] [facility], [address], [place], [address], [facility] 02/25/2021 10:04:15 08/27/19 21 HEDIS- MEDICATION LIST DOCU IN MED REC - 1159F [facility] 08/26/2020 09:49:23 08/27/19 21 HEDIS - AWV - Pain - No Pain Present - 1126f [facility] 08/26/2020 10:01:23 08/27/19 21 HEDIS - AWV - Blood Pressure < 130 Systolic - 3074f [facility] 08/26/2020 10:01:28 08/27/19 21 HEDIS - AWV - Blood Pressure < 80 Diastolic - 3078f [facility] 08/26/2020 10:01:35 08/27/19 21 HEDIS - HEDIS - ADVANCED CARE PLAN DISCUSSED AND DOCU IN MED REC- PT NAMED CARE PLAN OR SURROGATE ? 66 YRS - 1123F completed Cezar Powell Jr, DO [address] [facility], [address], [place], [address], [facility] 08/26/2020 10:40:06 08/27/19 21 HEDIS - AWV - ADVANCED DIRECTIVE DISCUSSED & DOCUMENTED IN MED REC ? 66 YRS - 1158F completed Francisca [facility]ugh [facility] 08/26/2020 09:49:29 08/27/19 21 HEDIS Tobacco Screening Negative for Smoking - 1036F [facility] 08/26/2020 09:49:25 08/27/19 21 HEDIS - AWV - REVIEW OF MEDICATION DOCU IN MED REC -1160F completed Cezar Powell Jr, DO [address], [address], [place], [address], [facility] 08/26/2020 10:40:06 08/27/19 21 HEDIS - BMI WITHIN NORMAL PARAMETERS - G8420 completed Cezar Powell Jr, DO [address], [address], [place], [address], [facility] 08/26/2020 15:13:59 08/12/19 21 HEDIS - AWV - MEDICATION - LIST IN MEDICAL RECORDS REVIEWED - G8427 completed Nat Mercado, CERTIFIED SKI PATROLLER [address], [address], [place], [address], [facility] 08/11/2020 17:31:59 08/12/19 21 HEDIS- MEDICATION LIST DOCU IN MED REC - 1159F completed Nat Mercado, CERTIFIED SKI PATROLLER [address], [address], [place], [address], [facility] 08/11/2020 17:31:51 08/12/19 21 HEDIS - AWV - Blood Pressure < 130 Systolic - 3074f completed Jovan Acevedo [facility] 08/11/2020 16:44:56 08/12/19 21 HEDIS - AWV - Blood Pressure < 80 Diastolic - 3078f completed Jovan Acevedo [facility] 08/11/2020 16:44:58 08/12/19 21 HEDIS - BMI Low Must Have Plan of Care - G8414 completed Jovan Acevedo [facility] 08/11/2020 16:45:12 08/12/19 21 HEDIS Tobacco Screening Negative for Smoking - 1036F completed Jovan Acevedo [facility] 08/12/19 16:45:01 08/12/19 21 HEDIS - AWV - REVIEW OF MEDICATION DOCU IN [facility] -1160F completed Nat Mercado APRN [address] [facility] [address], [address], [place], [address], [facility] 08/11/2020 17:31:54 02/26/20 20 HEDIS- MEDICATION LIST DOCU IN [facility] REC - 1159F [facility]/26/2020 09:36:46 02/26/20 20 HEDIS - AWV - Pain - No Pain Present - 1126f [facility] 02/26/2020 09:36:38 02/26/20 20 HEDIS - AWV - Blood Pressure < 130 Systolic - 3074f [facility] 02/26/2020 09:36:32 02/26/20 20 HEDIS - AWV - Blood Pressure < 80 Diastolic - 3078f [facility] 02/26/2020 09:36:35 02/26/20 20 HEDIS - HEDIS - ADVANCED CARE PLAN DISCUSSED AND DOCU IN [facility]- PT NAMED CARE PLAN OR SURROGATE ? 66 YRS - 1123F completed Cezar Powell Jr, DO [address] [facility], [address], [place], [address], [facility] 02/26/2020 10:07:02 02/26/20 20 HEDIS Tobacco Screening Negative for Smoking - 1036F [facility] 02/26/2020 09:36:44 02/26/20 20 HEDIS - AWV - REVIEW OF MEDICATION DOCU IN [facility] -1160F completed Cezar Powell Jr DO [address] [facility] [facility] [address], [address], [place], [address], [facility] 02/26/2020 10:07:02 01/22/20 20 HEDIS- MEDICATION LIST DOCU IN [facility] - 1159F completed Hernan Pinedo [facility] 01/22/2020 15:32:56 01/22/20 20 HEDIS - AWV - Pain - No Pain Present - 1126f completed [facility] 0 15:33:06 01/22/20 20 HEDIS - AWV - Blood Pressure < 130 Systolic - 3074f completed [facility] 01/22/2020 15:33:34 01/22/20 20 HEDIS - AWV - Blood Pressure < 80 Diastolic - 3078f completed [facility] 01/22/2020 15:33:19 01/22/20 20 HEDIS Tobacco Screening Negative for Smoking - 1036F completed [facility] 0 15:32:59 01/22/20 20 HEDIS - AWV - REVIEW OF MEDICATION DOCU IN MED REC -1160F completed HERNAN De Leon, CERTIFIED SKI PATROLLER [address] [facility], [address], [place], [address], [facility] 01/22/2020 16:00:26 01/22/20 20 HEDIS - BMI WITHIN NORMAL PARAMETERS - G8420 completed [facility] 01/22/2020 15:33:11 01/22/20 20 Hedis - AWV - [facility]ICATION [facility] 1111F completed HERNAN De Leon, CERTIFIED SKI PATROLLER [address] [facility], [address], [place], [address], [facility] 01/22/2020 16:00:33 08/27/19 20 HEDIS- MEDICATION LIST DOCU IN MED REC - 1159F completed [facility] 08/27/2019 11:06:42 08/27/19 20 HEDIS Pain - AWV - Pain Present Severity Quantified - 1125F completed [facility] 08/27/2019 11:14:35 08/27/19 20 HEDIS - AWV - Blood Pressure < 80 Diastolic - 3078f completed Cezar Powell Jr, DO [address] [facility] [address], [address], [place], [address], [facility] 08/27/2019 11:35:51 08/27/19 20 HEDIS BMI Age 18 - 64 (18.5 - 24) Normal completed Cezar Powell Jr, DO [address] [facility] [address], [address], [place], [address], [facility] 08/27/2019 11:35:51 08/27/19 20 HEDIS - BMI Low Must Have Plan of Care - G8414 completed [facility] 08/27/2019 11:14:22 08/27/19 20 HEDIS - HEDIS - ADVANCED CARE PLAN DISCUSSED AND DOCU IN MED REC- PT NAMED CARE PLAN OR SURROGATE ? 66 YRS - 1123F [facility] 08/27/2019 11:14:44 08/27/19 20 HEDIS Tobacco Screening Negative for Smoking - 1036F [facility] 08/27/2019 11:06:45 08/27/19 20 HEDIS - AWV - REVIEW OF MEDICATION DOCU IN MED REC -1160F completed Cezar Powell Jr, DO [address], [address], [place], [address], [facility] 08/27/2019 11:35:52 02/26/20 19 HEDIS - AWV - BLOOD PRESSURE 130 - 139 SYSTOLIC - 3075f completed Cezar Powell Jr, DO [address], [address], [place], [address], [facility] 02/25/2019 17:58:19 02/26/20 19 HEDIS - AWV - Blood Pressure < 80 Diastolic - 3078f completed Cezar Powell Jr, DO [address], [address], [place], [address], [facility] 02/25/2019 17:58:25 02/26/20 19 HEDIS BMI Age 18 - 64 (18.5 - 24) Normal completed Cezar Powell Jr, DO [address], [address], [place], [address], [facility] 02/25/2019 17:58:30 02/26/20 19 HEDIS - AWV - REVIEW OF MEDICATION DOCU IN MED REC -1160F completed Cezar Powell Jr, DO [address], [address], [place], [address], [facility] 02/25/2019 17:57:49 10/11/19 17 Date of Last Pap Smear completed Kerline Dinh [facility] 02/28/2017 15:56:35 10/25/19 15 Most Recent Mammogram completed Sonia Damon [facility] 02/25/2019 10:33:01 03/21/19 15 Hysterectomy completed [facility] 02/16/2017 15:40:32 Orthopedic Surgery completed [facility] 02/16/2017 15:41:19 Other completed [facility] 02/16/2017 15:44:23 Imaging Results Imaging Date Name Status LastModified by Organiz ation Details LastModified Time 05/06/2021 XR, knee, 3 view completed BAR[facility] Information not available 05/11/2021 17:43:45 Procedure Notes None recorded. Medical Equipment None Reported. Allergies Allergen ID Allergen Name Allergen Category Reaction Reaction Severity Criticality Documentation Date Start Date Code Code System Note Provider Name and Address Organization Details Recorded Time 380565 house dust allergeni c extract environme nt,medica tion eye swelling severe Not available 04/10/2018 01780 9 RxNorm Rema Bhatia stefan, [facility] 9 10:37:50 Medications Name Sig Start Date Stop Date Status Note LastModified by Organization Details LastModified Time Prescriptio n - Renewal 01/21 completed Not Available Not Available Not Available Prescriptio n - New 01/21 completed Not Available Not Available Not Available amoxicillin 500 mg capsule TAKE ONE CAPSULE BY MOUTH THREE TIMES A DAY FOR 7 DAYS 12/15 completed Not Available Not Available Not Available trazodone 50 mg tablet TAKE 1 TABLET AT BEDTIME active Not Available Not Available No t Available hydrocodone 5 mg-acetamin ophen 325 mg tablet TAKE ONE TABLET BY MOUTH EVERY 4 HOURS NEEDED FOR PAIN 02/25 completed Not Available Not Available Not Available Keflex 500 mg capsule Take 1 capsule 3 times a day by oral route. 05/28 completed Not Available Not Available Not Available Zithromax Z-Endy 250 mg tablet TAKE 2 TABLETS (500 MG) BY ORAL ROUTE ONCE DAILY FOR 1 DAY THEN 1 TABLET (250 MG) BY ORAL ROUTE ONCE DAILY FOR 4 DAYS 01/03 completed Not Available Not Available Not Available acyclovir 400 mg tablet Take 1 tablet every 8 hours by oral route. 07/11 completed Not Available Not Available Not Available sulfamethox azole 800 mg-trimetho prim 160 mg tablet TAKE ONE TABLET BY MOUTH EVERY 12 HOURS DIRECTED FOR 10 DAYS 08/26 completed Not Available Not Available Not Available hydrocodone 10 mg-acetamin ophen 325 mg tablet Take 1 tablet 3 times a day by oral route as needed. 02/25 completed Not Available Not Available Not Available tamsulosin 0.4 mg capsule TAKE ONE CAPSULE BY MOUTH ONE TIME DAILY FOR 7 DAYS 02/25 completed Not Available Not Available Not Available trazodone 100 mg tablet TAKE 1 TO 1 AND 1/2 TABLETS EVERY NIGHT NEEDED FOR INSOMNIA active Not Available Not Available No t [place] [address] unit-400 unit tablet Take 1 tablet every day by oral route. active Not Available Not Available No t Available acyclovir 5 % topical ointment APPLY A small film TO THE AFFECTED AREA(S) BY TOPICAL ROUTE EVERY 3 HOURS 6 TIMES PER DAY 01/21 completed Not Available Not Available Not Available folic acid 1 mg tablet TAKE 1 TABLET EVERY DAY active Not Available Not Available No t Available Vistaril 25 mg capsule Take 1 capsule every day by oral route at bedtime. 01/03 completed Not Available Not Available Not Available gabapentin 100 mg capsule TAKE 3 CAPSULES EVERY DAY active Not Available Not Available No t Available ibuprofen 600 mg tablet active Not Available Not Available Not Available letrozole 2.5 mg tablet Take 1 tablet every day by oral route. active Not Available Not Available No t Available methylpredn isolone 4 mg tablets in a dose pack TAKE DIRECTED 12/15 completed Not Available Not Available Not Available ondansetron 4 mg disintegrat ing tablet PLACE ONE TABLET ON THE TONGUE THREE TIMES A DAY NEEDED FOR 10 DAYS 05/04 completed Not Available Not Available Not Available fluoxetine 20 mg capsule TAKE 1 CAPSULE EVERY DAY active Not Available Not Available No t Available amoxicillin 875 mg-potassiu m clavulanate 125 mg tablet TAKE ONE TABLET BY MOUTH TWICE A DAY 02/25 completed Not Available Not Available Not Available oxycodone 5 mg tablet Take 1 tablet every 4 hours by oral route. 05/28 completed Not Available Not Available Not Available Allergy Relief (diphenhydr amine) 25 mg capsule Take 2 capsules every 4 hours by oral route. active Not Available Not Available No t Available Calcium 600 + D(3) 600 mg-5 mcg (200 unit) tablet Take 1 tablet every day by oral route. active Not Available Not Available No t Available chlorhexidi ne gluconate 0.12 % mouthwash 01/21 completed Not Available Not Available Not Available oxycodone 10 mg tablet 01/21 completed Not Available Not Available Not Available Xgeva as directed active Not Available Not Available No t Available Ibrance 75 mg capsule active Not Available Not Available N ot Available Ibrance 100 mg capsule Take 1 capsule every day by oral route. 05/28 completed Not Available Not Available Not Available Xtampza ER 9 mg capsule sprinkle 01/21 completed Not Available Not Available Not Available Flucelvax Quad (PF) 60 mcg (15 mcg x 4)/0.5 mL IM syringe 01/21 completed Not Available Not Available Not Available Flucelvax Quad (PF) 60 mcg (15 mcg x 4)/0.5 mL IM syringe INJECT 0.5ML INTRAMUSC ULARLY ONCE 01/21 completed Not Available Not Available Not Available Vitals Date Recorded Body height Body mass index (BMI) Body weight Heart rate Body temperature Oxygen saturation Oxygen saturation in Arterial blood by Pulse oximetry Respiratory rate Pain severity - 0-10 verbal numeric rating [Score] - Reported Systolic blood pressure Diastolic blood pressure Provider Name and Address Organization Details Last Updated DateTime 1 157.48 cm 18.7 kg/m2 83105.4 2 g 75 /min 97.6 [degF] 99 % 99 % 16 /min 7 108 mm[Hg] 74 mm[Hg] Jovan Acevedo [facility] 1 16:48:03 Date Recorded Body height Body mass index (BMI) Body weight Heart rate Body temperature Oxygen saturation Oxygen saturation in Arterial blood by Pulse oximetry Respiratory rate Pain severity - 0-10 verbal numeric rating [Score] - Reported Systolic blood pressure Diastolic blood pressure Provider Name and Address Organization Details Last Updated DateTime 1 157.48 cm 18.7 kg/m2 25908.4 2 g 77 /min 97.2 [degF] 97 % 97 % 16 /min 0 105 mm[Hg] 76 mm[Hg] Francisca Castillo [facility] 1 09:59:56 Date Recorded Body height Body mass index (BMI) Body weight Heart rate Body temperature Oxygen saturation Oxygen saturation in Arterial blood by Pulse oximetry Respiratory rate Pain severity - 0-10 verbal numeric rating [Score] - Reported Systolic blood pressure Diastolic blood pressure Provider Name and Address Organization Details Last Updated DateTime 1 157.48 cm 19.2 kg/m2 37283.2 g 85 /min 97.2 [degF] 97 % 97 % 18 /min 0 91 mm[Hg] 57 mm[Hg] Meaghan Castillo [facility] 1 09:48:06 Date Recorded Body height Body mass index (BMI) Body weight Heart rate Body temperature Oxygen saturation Oxygen saturation in Arterial blood by Pulse oximetry Respiratory rate Pain severity - 0-10 verbal numeric rating [Score] - Reported Systolic blood pressure Diastolic blood pressure Provider Name and Address Organization Details Last Updated DateTime 2 157.48 cm 19.2 kg/m2 68633.4 8 g 87 /min 97.5 [degF] 96 % 96 % 16 /min 5 87 mm[Hg] 61 mm[Hg] Meaghan Castillo [facility] 2 12:15:44 Date Recorded Body height Body mass index (BMI) Body weight Pain severity - 0-10 verbal numeric rating [Score] - Reported Respiratory rate Body temperature Heart rate Oxygen saturation Oxygen saturation in Arterial blood by Pulse oximetry Systolic blood pressure Diastolic blood pressure Provider Name and Address Organization Details Last Updated DateTime 2 157.48 cm 19 kg/m2 31670.8 9 g 10 16 /min 99.1 [degF] 83 /min 96 % 96 % 108 mm[Hg] 69 mm[Hg] Joseline Perrin [facility] 2 10:05:23 Social History Question Answer Notes LastModified by Organizat ion Details LastModified Time Tobacco Smoking Status [facility] 15:39:39 Do You Have An Advance Directive? No Information not available 02/16/2017 What Is Your Level Of Alcohol Consumption? None Information not available 02/16/2017 Are You Blind Or Do You Have Difficulty Seeing? No Information not available 02/16/2017 What Is Your Level Of Caffeine Consumption? Moderate Information not available 02/16/2017 How Much Tobacco Do You Chew? None Information not available 02/16/2017 Are You Currently Employed? No Information not available 02/16/2017 Are You Deaf Or Do You Have Serious Difficulty Hearing? No Information not available 02/16/2017 What Type Of Diet Are You Following? REGULAR Information not available 02/16/2017 Which Illicit Or Recreational Drugs Have You Used? None Information not available 02/16/2017 Do You Or Have You Ever Used E-cigarettes Or Vape? Never Used Electronic Cigarettes Information not available 01/22/2020 Education 12 Information no t available 02/16/2017 Hard Of Hearing Or Deaf In One Or Both Ears? No Information not available 02/16/2017 Legally Blind In One Or Both Eyes? No Information no t available 02/16/2017 Live Alone Or With Others? With Others Information not available 02/16/2017 What Was The Date Of Your Most Recent Tobacco Screening? 09/14/2021 [email or web address] Information not available 09/14/2021 How Many Children Do You Have? 2 Information not available 02/16/2017 Performs Monthly Self-breast Exam? No Information no t available 02/25/2019 Do You Use Protection During Sex? No [email or web address] Information not available 05/28/2017 Seat Belts Used Routinely Yes Information not available 02/16/2017 Are You Sexually Active? No Information not available 02/25/2019 Smoke Alarm In Home Yes Information not available 02/16/2017 Are You Passively Exposed To Smoke? No Information no t available 02/16/2017 Do You Or Have You Ever Used Smokeless Tobacco? Never Used Smokeless Tobacco Information not available 01/22/2020 How Much Tobacco Do You Smoke? No Information not available 02/16/2017 General Stress Level Medium [email or web address] Information not available 04/10/2018 Do You Use Any Illicit Or Recreational Drugs? No Information not available 08/11/2020 Do You Use Sunscreen Routinely? Yes Information not available 02/16/2017 Has Tobacco Cessation Counseling Been Provided? No Information not available 08/11/2020 On What Date Was Tobacco Cessation Counseling Provided? 02/26/2020 [email or web address] Information not available 02/26/2020 Have You Used IV Drugs? No Information not available 05/28/2017 Sex: Female Functional Status Question Answer Note LastModified by Organizat ion Details LastModified Time Do you have difficulty walking or climbing stairs? Yes at times due to knee pain [email or web address] Information not available 05/28/2017 Do you have difficulty doing errands alone? No Information not available 02/16/2017 Are you able to care for yourself? Yes Information not available 02/16/2017 Do you have difficulty dressing or bathing? No Information not available 02/16/2017 What is your exercise level? None Information not available 02/16/2017 Mental Status Question Answer Note LastModified by Organization D etails LastModified Time Do you have difficulty concentrating, remembering or making decisions? No Information no t available 02/16/2017 Family History Relationship Description Onset Age of this Age Resolved Age Notes LastModified by Organization Details LastModified Time Mother Hypertensive disorder Not available 2016 15:37:54 Mother Heart disease hearta [email or web address] Not available 08/27/2019 10:57:55 Father Heart disease Not available 2019 10:57:55 Medical History Condition Response Coronary Artery Disease N Aneurysm/stroke N Gout N Anxiety/Depression N Other N Atrial Fibrillation N Blood Diseases N Kidney Stones N Hyperthyroidism N Blood Transfusion N Breast Cancer Y Lung Cancer N Glaucoma N Depression Y Congenital Heart Disease N COPD N Hypothyroidism N Lung Disease N Developmental or Behavioral Disorders N Defects or Inherited Disease N Breast Problem N Pacemaker N Difficulty Swallowing N Anesthesia Complications N Meniere's disease N Anxiety Disorder N Muscle, Joint, or Bone Problems N Obesity N Vision or Eye Problems N Arthritis N Polyps N Infertility N Mental Disorder N Cancer N Varicosities N Stroke N Chronic Fatigue N Endometriosis N Bladder or Kidney Problems N High Cholesterol N Liver Disease N Rheumatoid Arthritis N Headaches N Fibromyalgia N Kidney Disease N Allergies/Hayfever Y Heart Problems N Ear or Hearing Problems N Hospitalizations N Migraines N Thyroid Problems N GI Problems N ADD/ADHD N Skin Problems N Eating Disorder N Anemia N MRSA exposure N Constipation N Mental Illness N Ovarian Cancer N Diabetes N Bleeding Disorder N Seizures/Epilepsy N Tuberculosis N AIDS/HIV N Congestive Heart Failure (CHF) N Eczema N Chronic Pain N Diverticulitis N Abuse/Domestic Violence N Asthma N Substance Abuse N Peripheral Vascular Disease N Reflux/GERD N Hepatitis N Heart Disease N Pulmonary Embolism N Pre-Eclampsia N Hypertension N Chronic Ear Infections N Osteoporosis N Chicken Pox N Autism Spectrum Disorder (ASD) N Thrombophilias N Gynecological History Statement/Question Response Abnormal Pap Y Sexually Active? N Menses Monthly N Date of Last Pap Smear 10/10/2016 Most Recent Mammogram 10/24/2014 Current Control Method Hysterectom y Obstetrics History GPAL:G 2 P 2 0 0 2 Type Value Full Term 2 Living 2 Total 2 Immunizations Vaccine Type Date Status Note Provider Nam e and Address Organization Details Recorded Time Influenza, split virus, quadrivalent, PF 01/29/2017 completed Danielle Lawson [facility] 05/28/2017 10:32:47 Influenza, MDCK, quadrivalent, PF 12/25/2017 completed eRma Bhatia [facility] 04/10/2018 10:36:25 Influenza, MDCK, quadrivalent, PF 11/28/2019 completed Hernan Pinedo [facility] 01/22/2020 15:27:58 Tdap 02/27/2020 completed Regina Iyer [facility] 02/27/2020 11:14:00 Past Encounters Encounter ID Performer Location Encounter Start Date Encounter Closed Date Diagnosis/Indication Diagnosis SNOMED-CT Code Diagnosis ICD10 Code Diagnosis Note [id number] Johann Snider MD [facility] [address] [place] [address] 02/16/2017 14:50:37 02/16/2017 16:26:08 Primary malignant neoplasm of female breast 22013531 C50.919 Upper resp iratory infection 46532157 J06.9 [id number] Berkley Resendiz [facility] OB-JAVASCRIPT DEVELOPER [id number] [place] [address] 02/28/2017 15:27:35 03/01/2017 16:01:01 Gynecologic examination 20975194 Z01.773 [id number] Alessandra Soler [address] [address] 05/28/2017 10:16:10 05/28/2017 11:38:06 Primary malignant neoplasm of female breast 31047231 C50.919 Pain in buttock 49231955 6 M79.1 [id number] Johann Snider MD [address] [address] 09/28/2017 10:03:14 09/28/2017 11:13:18 Primary malignant neoplasm of female breast 28547250 C50.919 continue with oncologist [id number] Johann Snider MD [address] [address] 10/30/2017 10:54:48 10/30/2017 11:22:18 Acute pharyngitis 979842587 J02.9 Primary ma lignant neoplasm of female breast 35274426 C50.919 continue with oncologist [id number] Johann Snider MD [address] [address] 01/03/2018 09:49:50 01/03/2018 10:27:01 Primary malignant neoplasm of female breast 25725479 C50.919 continue with oncologist Herpes simplex 26443349 B00.9 [id number] Johann Snider MD [address] [address] 04/10/2018 09:58:23 04/10/2018 10:56:54 Primary malignant neoplasm of female breast 28624343 C50.919 eforcse queried and reviewed [id number] Johann Snider MD [address] [address] 07/11/2018 08:58:40 07/11/2018 09:36:39 Primary malignant neoplasm of female breast 68901991 C50.919 eforcse queried and reviewed [id number] Johann Snider MD [address] [address] 09/03/2018 09:21:12 09/03/2018 10:24:08 Body mass index 20-24 - normal 847142594 Z68.22 Urinary tr act infectious disease 29941032 N39.0 Primary ma lignant neoplasm of female breast 65528128 C50.919 efore queried and reviewed [id number] Cezar Powell Jr, [facility] [address] [place] [address] 02/25/2019 10:02:08 02/25/2019 13:21:09 Primary malignant neoplasm of female breast 57112846 C50.919 Adult heal th examination 326292774 Z00.00 Z00.01 Depressive disorder 3548 9007 F32.9 Stable on meds [id number] Cezar Powell Jr [address] [address] 08/27/2019 10:50:30 08/27/2019 11:52:53 Primary malignant neoplasm of female breast 05777748 C50.919 Stable per PET scan 07/29. 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 Has pain pump now and pain much more controlled . 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 Has pain pump now and pain much more controlled . Body mass index less than 20 453917079 Z68.1 Underweight 159619748 R6 3.6 Kidney stone 94030824 N2 0.0 Metastatic malignant neoplasm to bone 64977125 C79.51 [id number] Cezar Powell Jr DO 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 Has pain pump now and No pain at present Primary ma lignant neoplasm of female breast 64668761 C50.919 Stable per PET scan 07/29.Saw [facility] in December seeing again next month. Body mass index less than 20 662247041 Z68.1 18.3 Depressive disorder 3548 9007 F32.9 Stable on meds Underweight 350005001 R6 3.6 Patient had lost weight Unintentio go, however from last visit to this visit weight has been stable. Active or passive immunization 862946543 Z23 Adult heal th examination 622718854 Z00.00 Hepatitis C screening 41 3100432 Z11.59 HIV screening 066955108 Z11.4 [id number] [facility] [address] [place] [address] 08/11/2020 15:53:12 08/11/2020 18:18:37 Body mass index less than 20 272490274 Z68.1 Acute urin cristiano tract infection 128089089 N39.0 antibx, push fluids, maintain hydration. rto if no improvemen t . urine sent out for culture [id number] Cezar Powell Jr, DO 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 Has pain pump now and No pain at present Primary ma lignant neoplasm of female breast 28913857 C50.919 Stable per PET scan 07/29.Saw [facility] in December seeing again next month. 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 [address] [facility] [place] [address] 09/14/2021 08:57:18 09/14/2021 10:47:29 Body mass index less than 20 115036450 Z68.1 Fever 184290237 R50.9 Streptococ aaron sore throat 77852243 J02.0 Health Concerns Section Related Observation LastModified by Organization Detai ls LastModified Time None Recorded Concern Status LastModified by Organization Details LastModified Time None Recorded Advance Directives Directive N: Payers Encounter Date Sequence Insurance Name Policy Number Policy Skinner Covered Member ID Skinner Member ID Guarantor Name 08/11/2020 1 [employer] ONE - [employer]IC[employer] (PPO) Reba Cabrera [id number] Reba Cabrera 08/26/2020 1 [employer] - [employer] (PPO) Reba Cabrera [id number] Reba Cabrera 02/25/2021 1 [employer] - [employer] (PPO) Reba Cabrera [id number] Reba Cabrera 05/04/2021 1 [employer] ONE - [employer] (PPO) Reba Cabrera [id number] Reba Cabrera 09/14/2021 1 [employer] (MEDICARE REPLACEMENT/A DVANTAGE - PPO) Reba Cabrera [id number] Reba Cabrera Notes Date Note Type Note Provider Name and Address Organization Details Recorded Time 08/11/2020 text/html Generic HPI TemplateReported bypatient.Notes:here w pain on urination, urinary freq and urgency for 1 day. .denies f/n/v/d/cough. states bactrim works best. 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 Patient Learning Needs Assessment Area of Content: {{x# X}} Disease Process {{X}} Equipment {{X}} Treatment Procedure {{X}} Medication {{X}} Barrier to Care: {{YES NO*}} Demonstrates Desire to Learn {{YES* NO}} Communication Barrier: {{x# X}} None {{X}} Physical {{X}} Cognitive {{X}} Emotional {{X}} Language {{X}} Other ____ Learning Barriers: {{x# X}} None {{X}} Language {{X}} Cultural Beliefs {{X}} Financial Issues {{X}} Hearing Impairment {{X}} Vision Impairment {{X}} Emotional Barriers {{X}} Physical Problems {{X}} Mandaeism Beliefs {{X}} Low Literacy {{X}} Learning Problems {{X}} Disinterested Preferred Teaching Method: {{X}} Handout {{x# X}} Discussion {{X}} Class {{X}} Video (if available) {{X}} Demonstration Comments[facility] 09:24:52 08/26/2020 text/html Patient Learning Needs Assessment Very pleasant 50-year-old female with a history of breast cancer with mets to the bone, mostly back, stage IV. Chronic pain syndrome due to this with pain pump and currently in no pain, And depression, presents today for medical management. She has not been sleeping that well Had recent UTI Labs discussed leukopenia noted however just received chemotherapy Folic acid low Having a PET scan done soon Reviewed oncology notes Blood pressure stable Weight stable Received Covid vaccinations through oncology Area of Content: {{x*}} Disease Process {{x}} Equipment {{x}} Treatment Procedure {{x}} Medication {{x}} Barrier to Care: {{YES NO*}} Demonstrates Desire to Learn {{YES* NO}} Communication Barrier: {{x*}} None {{x}} Physical {{x}} Cognitive {{x}} Emotional {{x}} Language {{x}} Other Learning Barriers: {{x*}} None {{x}} Language {{x}} Cultural Beliefs {{x}} Financial Issues {{x}} Hearing Impairment {{x}} Vision Impairment {{x}} Emotional Barriers {{x}} Physical Problems {{x}} Mandaeism Beliefs {{x}} Low Literacy {{x}} Learning Problems {{x}} Disinterested Preferred Teaching Method: {{x*}} Handout {{x*}} Discussion {{x}} Class {{x}} Video (if available) {{x*}} Demonstration Comments: Cezar Powell Jr, DO [address] [facility], [place] [address], [place], [address], [facility] 08/26/2020 15:17:19 02/25/2021 text/html Patient Learning Needs Assessment Very pleasant 50-year-old female with a history of breast cancer with mets to the bone, mostly back, stage IV. Chronic pain syndrome due to this with pain pump and currently in no pain, And depression, presents today for medical management. Safe in her house Cancer in remission Has gained 3 pounds Feeling very good Pain pump working fine and no pain right now Seeing [facility] every 2 months Had left mastectomy 11/30 Received both Covid vaccinations and flu shot at [facility] depression stable sleeps well with trazadone Blood pressure stable Weight stable Area of Content: {{x*}} Disease Process {{x}} Equipment {{x}} Treatment Procedure {{x}} Medication {{x}} Barrier to Care: {{YES NO*}} Demonstrates Desire to Learn {{YES* NO}} Communication Barrier: {{x*}} None {{x}} Physical {{x}} Cognitive {{x}} Emotional {{x}} Language {{x}} Other Learning Barriers: {{x*}} None {{x}} Language {{x}} Cultural Beliefs {{x}} Financial Issues {{x}} Hearing Impairment {{x}} Vision Impairment {{x}} Emotional Barriers {{x}} Physical Problems {{x}} Mandaeism Beliefs {{x}} Low Literacy {{x}} Learning Problems {{x}} Disinterested Preferred Teaching Method: {{x*}} Handout {{x*}} Discussion {{x}} Class {{x}} Video (if available) {{x*}} Demonstration Comments: Cezar Powell Jr, DO [address] [facility], [place], [address], [facility] 02/25/2021 12:47:51 05/04/2021 text/html Patient Learning Needs Assessment Very pleasant 50-year-old female with a history of breast cancer with mets to the bone, mostly back, stage IV. Chronic pain syndrome due to this with pain pump and currently in no pain, And depression, presents today for medical management. She has had bilateral knee pain now for over 15 years. Has seen multiple clinical review specialist about this no diagnosis. Saw [facility] orthopedics here in [place] they did not even give injections as they said everything looked normal Can only walk about 5 to 10 minutes then knees started hurting much more and start giving out Recent sore throat No fevers Safe in her house Cancer in remission Weight stable Feeling very good Pain pump working fine and no pain right now Seeing [facility] every 2 months Had left mastectomy 11/30 Received both Covid vaccinations and flu shot at [facility] depression stable sleeps well with trazadone Blood pressure stable Area of Content: {{x*}} Disease Process {{x}} Equipment {{x}} Treatment Procedure {{x}} Medication {{x}} Barrier to Care: {{YES NO*}} Demonstrates Desire to Learn {{YES* NO}} Communication Barrier: {{x*}} None {{x}} Physical {{x}} Cognitive {{x}} Emotional {{x}} Language {{x}} Other Learning Barriers: {{x}} None {{x}} Language {{x}} Cultural Beliefs {{x}} Financial Issues {{x}} Hearing Impairment {{x}} Vision Impairment {{x}} Emotional Barriers {{x}} Physical Problems {{x}} Mandaeism Beliefs {{x}} Low Literacy {{x}} Learning Problems {{x}} Disinterested Preferred Teaching Method: {{x*}} Handout {{x*}} Discussion {{x}} Class {{x}} Video (if available) {{x*}} Demonstration Comments: Cezar Powell Jr, DO [address] [place] [address], [place] [address], [place], [address], [facility] 05/04/2021 13:04:08 09/14/2021 text/html The patient cons ented to a telemedicine visit. The patient? s identity was confirmed via name and date of . Today's visit was done via video and audio, with patient in office. The risks, benefits, alternatives and limitations of the visit were discussed, including the limitations of not being able to perform a physical exam. A total of 9 minutes was spent in direct interaction with patient, as well as review of existing medical records, collection of new medical information, medication review, previous laboratory results, and allergy verification. Patient states a couple days of sore throat, nasal congestion, laryngitis, fever. Using tylenol cold and flu, emergen-C, mucinex, vicks. She states she is a current ca patient. States as of yesterday, symptoms have all improved, except for throat pain and nasal congestion. She denies any other symptoms or complaints. Ayaka Chavez MD [address] [place] [address], [place] [address], [place], [address], [facility] 09/15/2021 00:53:43 OBGyn Episode No OBEpisode recorded.
== END 2024-04-24 13:32 | disposition home or self-care (01) ==
PROVIDERS: PCP Internal Medicine; Visit Provider Anesthesiology
DX: G89.4 Chronic pain syndrome (principal); M17.0 Bilateral primary osteoarthritis of knee; C50.919 Malignant neoplasm of unspecified site of unspecified female breast; Z45.1 Encounter for adjustment and management of infusion pump
CPT/HCPCS: 62370; 99213

== ENCOUNTER → 2024-04-24 12:58 | Outpatient (BNVA) | payer MEDICARE, MEDICAID, SELFPAY | PROVIDERS: PCP Internal Medicine; Visit Provider Anesthesiology | DX: Z45.89 Encounter for adjustment and management of other implanted devices (principal); M17.0 Bilateral primary osteoarthritis of knee; C50.919 Malignant neoplasm of unspecified site of unspecified female breast; G89.4 Chronic pain syndrome | CPT/HCPCS: 62370; 99212 ==